=== PATIENT | male | born 1980 | race Two or more races ===

== ENCOUNTER 2020-05-27 10:02 | Outpatient (REF) | payer OTHER, SELFPAY ==
[2020-05-27 14:42] LABS: Alanine Aminotransferase 54 U/L (0-40); Albumin Level 4.4 g/dL (3.5-5.0); Alkaline Phosphatase 137 U/L (39-117); Anion Gap 12 (12-20); Aspartate Amino Transferase 36 U/L (5-37); Bilirubin Total 0.5 mg/dL (0.0-1.0); Blood Urea Nitrogen 17 mg/dL (9-16); Carbon Dioxide 28 mmol/L (22-29); Chloride 102 mmol/L (96-108); Cholesterol 168 mg/dL; Estimated Glomerular Filt Rate > 60; Glucose Fasting 78 mg/dL (60-99); HDL Cholesterol 54 mg/dL; LDL Cholesterol Calculated 92 mg/dl; Potassium 4.1 mmol/l (3.3-5.1); Sodium 138 mmol/L (135-145); Total Protein 7.5 g/dL (6.5-8.0); Triglycerides 113 mg/dL
== END 2020-05-27 10:03 | disposition home or self-care (01) ==
LOC: HO.10HDL 10:02
PROVIDERS: Visit Provider Internal Medicine
DX: E78.00 Pure hypercholesterolemia, unspecified (principal); R03.0 Elevated blood-pressure reading, without diagnosis of hypertension; E66.3 Overweight
CPT/HCPCS: 36415; 80053; 80061

== ENCOUNTER 2020-11-23 10:04 | Outpatient (REF) | payer OTHER, SELFPAY ==
[2020-11-23 12:39] LABS: MANUAL DIFF FLAG NO
[2020-11-23 12:44] LABS: Basophils Absolute Auto 0.1 X10*3/uL (0.0-0.2); Basophils Percent Auto 0.7 % (0-2); Eosinophils Absolute Auto 0.2 X10*3/uL (0.0-0.4); Eosinophils Percent Auto 2.8 % (0-4); Hematocrit 46.2 % (42-52); Hemoglobin 15.7 g/dl (14.0-18.0); Imm Gran Abs Auto 0.01 X10*3/uL (0.00-0.03); Imm Gran Pct Auto 0.1 % (0.0-0.4); Lymphocytes Absolute Auto 2.2 X10*3/uL (1.2-4.9); Lymphocytes Percent Auto 26.4 % (20-40); Mean Corpuscular Hemoglobin 31.1 pg (27.0-33.0); Mean Corpuscular Volume 91.5 fL (80-98); Mean Platelet Volume 9.7 fL (9.4-12.4); Monocytes Absolute Auto 0.7 X10*3/uL (0.1-1.2); Monocytes Percent Auto 7.7 % (2-11); Neutrophils Absolute Auto 5.3 X10*3/uL (2.0-8.3); Neutrophils Percent Auto 62.3 % (45-73); Platelet Count 243 X10*3/uL (160-400); Red Blood Count 5.05 X10*6/uL (4.60-5.80); Red Cell Distribution Width 12.2 % (11.0-16.0); White Blood Count 8.5 X10*3/uL (4.8-10.8)
[2020-11-23 12:56] LABS: Alanine Aminotransferase 56 U/L (0-40); Albumin Level 4.4 g/dL (3.5-5.0); Alkaline Phosphatase 128 U/L (39-117); Anion Gap 14 (12-20); Aspartate Amino Transferase 38 U/L (5-37); Bilirubin Total 0.7 mg/dL (0.0-1.0); Blood Urea Nitrogen 17 mg/dL (9-16); Calcium 9.5 mg/dL (8.4-10.2); Carbon Dioxide 26 mmol/L (22-29); Chloride 103 mmol/L (96-108); Cholesterol 199 mg/dL; Estimated Glomerular Filt Rate > 60; Glucose Fasting 89 mg/dL (60-99); HDL Cholesterol 57 mg/dL; LDL Cholesterol Calculated 115 mg/dl; Potassium 4.5 mmol/L (3.3-5.1); Sodium 138 mmol/L (135-145); Total Protein 7.7 g/dL (6.5-8.0); Triglycerides 138 mg/dL
== END 2020-11-23 10:05 | disposition home or self-care (01) ==
LOC: HO.10HDL 10:04
PROVIDERS: Visit Provider Internal Medicine
DX: Z00.00 Encounter for general adult medical examination without abnormal findings (principal); E78.00 Pure hypercholesterolemia, unspecified; R79.89 Other specified abnormal findings of blood chemistry; E66.3 Overweight; I10 Essential (primary) hypertension
CPT/HCPCS: 36415; 80053; 80061; 85025

== ENCOUNTER 2021-05-26 09:43 | Outpatient (REF) | payer OTHER, SELFPAY ==
[2021-05-26 11:14] LABS: Alanine Aminotransferase 56 U/L (0-40); Albumin Level 4.2 g/dL (3.5-5.0); Alkaline Phosphatase 131 U/L (39-117); Anion Gap 11 (12-20); Aspartate Amino Transferase 38 U/L (5-37); Bilirubin Total 0.7 mg/dL (0.0-1.0); Blood Urea Nitrogen 18 mg/dL (9-16); Calcium 9.2 mg/dL (8.4-10.2); Carbon Dioxide 27 mmol/L (22-29); Chloride 106 mmol/L (96-108); Cholesterol 175 mg/dL; Estimated Glomerular Filt Rate > 60; Glucose Fasting 83 mg/dL (60-99); HDL Cholesterol 47 mg/dL; LDL Cholesterol Calculated 106 mg/dl; Potassium 4.3 mmol/L (3.3-5.1); Sodium 140 mmol/L (135-145); Total Protein 7.6 g/dL (6.5-8.0); Triglycerides 113 mg/dL
== END 2021-05-26 09:44 | disposition home or self-care (01) ==
LOC: HO.10HDL 09:43
PROVIDERS: Visit Provider Internal Medicine
DX: E78.00 Pure hypercholesterolemia, unspecified (principal); R79.89 Other specified abnormal findings of blood chemistry
CPT/HCPCS: 36415; 80053; 80061

== ENCOUNTER 2021-09-13 14:20 | Emergency (ER) | payer OTHER, SELFPAY ==
[2021-09-13 14:57] VITALS: BP 157/96; PULSE 90; RESP 18; TEMP 36; O2SAT 100; BMI 35.4
[2021-09-13 15:29] LABS: COVID-19 Test Negative (Negative); IDNOW Serial# 16C4AD1C
[2021-09-13 15:30] LABS: Influenza A Negative (Negative); Influenza B2 Negative (Negative)
--- NOTE | 2021-09-13 16:05 | ED.GENADULT ---
HPI - General Adult General Chief complaint: Upper Respiratory Symptoms Stated complaint: Nausea/Eye issues/Headache Time Seen by Provider: 09/13/21 16:05 Source: patient Mode of arrival: ambulatory Limitations: no limitations History of Present Illness HPI narrative: Patient is a 41 year old male presenting to the emergency department today with a month of experiencing a bad smell off and on, nausea, and tearing of his left eye. Patient states that he has also been having headaches intermittently Patient state that none of these symptoms are happening right now but because it has been happening on and off an entire month, he wanted to be evaluated. Patient denies any current dizziness, lightheadedness, abdominal pain, nausea, vomiting, fever, chills, blurry vision, double vision, loss of vision, chest pain, difficulty breathing, shortness of breath, back pain, night sweats, pain with urination, increased urinary frequency, increased urinary urgency, blood in his urine or stool, syncope or a near syncopal episode, recent trauma or falls, bowel incontinence, bladder incontinence, bowel retention, bladder retention, or any other complaints at this time. Onset (ago): month(s) (1) Associated symptoms: denies other symptoms Treatments prior to arrival: none Related Data Previous Rx's Medication Instructions Recorded ezetimibe 10 mg tablet 10 mg PO DAILY 90 Days #90 tab 11/29/20 Allergies Allergy/AdvReac Type Severity Reaction Status Date / Time statins AdvReac Unknown elevated Uncoded 06/01/21 13:40 liver enzymes Review of Systems Constitutional: Constitutional: Reports no additional constitutional complaints, Denies chills, Denies fever(s) and Denies night sweats Eyes: Eyes: Reports no additional eye complaints, Denies blurry vision, Denies change in vision, Denies diplopia, Denies eye discharge, Denies loss of vision and Denies eye pain ENT: Denies dizziness Cardiovascular: Cardiovascular: Reports no additional cardiovascular complaints, Denies chest pain, Denies lightheadedness, Denies Loss of Consciousness and Denies dyspnea Respiratory: Respiratory: Reports no additional respiratory complaints and Denies dyspnea Gastrointestinal: Gastrointestinal: Reports no additional gastrointestinal complaints, Denies abdominal pain, Denies melena, Denies hematochezia, Denies change in bowel habits and Denies change in stool character Genitourinary: Genitourinary: Reports no additional male genitourinary complaints, Denies hematuria, Denies oliguria, Denies difficulty urinating, Denies dysuria, Denies urinary frequency, Denies urinary hesitancy, Denies urinary incontinence and Denies urinary urgency Musculoskeletal: Musculoskeletal: Reports no additional musculoskeletal complaints, Denies numbness and Denies tingling Neurologic: Denies dizziness, Denies loss of vision, Denies numbness and Denies tingling Psychiatric: Psychiatric: Reports no additional psychiatric complaints Endocrine: Endocrine: Reports no additional endocrine complaints Hematologic/Lymphatic: Hematologic/Lymphatic: Reports no additional hematologic/lymphatic complaints Allergic/Immunologic: Allergic/Immunologic: Reports no additional allergic/immunologic complaints PMFSH Past Medical History Attestation statement: The following information was validated with the patient. Source: old records reviewed Medical History Elevated LFTs Obesity (BMI 30-39.9) Pure hypercholesterolemia Surgical History No pertinent past surgical history Family History Family History Father Lung cancer Mother Hypertension Hyperlipidemia Asthma Maternal Grandmother No problems noted. Maternal Grandfather CAD (coronary artery disease) Brother In good health Sister In good health Social History Social History Housing: Apartment Alcohol intake: never Patient Tobacco Use Status: Never used Tobacco Second Hand Smoke Exposure: Yes Advance Directives: No Advance Directives Information Provided: No service: No Current occupational status: disabled Physical Exam ED Vital Signs: Vital Signs - 24 hr 09/13/21 14:57 Temperature 96.8 F Pulse Rate 90 Respiratory Rate 18 Blood Pressure 157/96 H Pulse Oximetry 100 BMI result Body Mass Index 35.4 Const General: cooperative, no acute distress, alert and awake Nutritional Appearance: well nourished Orientation/consciousness: patient oriented x3 Limitations: no limitations HENMT Head: Yes normal to inspection and Yes atraumatic Ears: hearing grossly normal bilaterally and external ears normal General nose exam: Normal external nose present, no nasal discharge noted and no epistaxis Face and sinus: Yes normal facial exam, No abrasion and No laceration Mouth: Normal oral and palatal mucosa present, no drooling and no muffled voice Eyes General: appearance normal, both eyes and all related structures Periorbital: periorbital findings normal Eyelids: Yes eyelids normal Conjunctivae: conjunctivae normal Pupils: Equal, round and reactive pupils present EOM: EOMs intact bilaterally Neck Neck: Yes normal visual inspection, Yes full ROM and Yes no lymphadenopathy Chest Chest palpation & inspection: normal inspection of the chest Resp Effort & Inspection: normal respiratory effort and able to speak in complete sentences Auscultation: clear to auscultation bilaterally Cardio Rate: regular rate Rhythm: regular rhythm GI Inspection: Yes normal to inspection Neuro General: patient oriented x3 and moves all extremities Cranial nerves: Yes Equal, round and reactive pupils present Cognition (Neuro): normal cognition Motor exam (neuro): 5/5 motor strength present throughout Sensory Exam: Normal double simultaneous stimulation for sensation Coordination: [id number] test normal Extrem General: Yes normal to inspection, Yes full ROM and Yes capillary refill normal Psych Appearance: grossly normal Mental Status: mental status grossly normal Affect: normal affect Attitude: cooperative Thought process: Normal thought process present Thought content: Normal thought content present Insight: Good insight present (Psych) Medical Decision Making MDM Narrative Medical decision making narrative: Patient is a 41 year old male presenting to the emergency department today with a month of intermittent bad smells, nausea, a headache, and left eye tearing. Patient's physical exam was unremarkable including a normal neurological examination. I explained my physical exam findings to the patient. I answered all questions asked by the patient. I explained to the patient that his description of symptoms is consistent with migraines. I explained to the patient that he needs to follow up with a neurologist. Patient stated he was concerned it may be coming from the inside of his nose or mouth. I recommended the patient also follow up with an ENT and a Dentist. I stressed the importance of the patient taking his medication as prescribed. I stressed the importance of the patient following up with his primary care provider. I stressed the importance of the patient returning to the emergency department immediately if his symptoms were to worsen or if he were to develop any dizziness, shortness of breath, difficulty breathing, chest pain, blurry vision, loss of vision, nausea, vomiting, abdominal pain, fever, chills, back pain, or any other complaints. Patient verbalized agreement and understanding with this treatment plan and discharge. Differential Diagnosis Differential Diagnosis: migraine Medical Records Medical records reviewed: Yes I reviewed the patient's medical records. Lab Data Lab results reviewed: Yes I reviewed the patient's lab results. Labs: Lab Results 09/13/21 09/13/21 Range/Units 15:02 15:02 COVID-19 (JENNIFER) Negative (Negative) COVID-19 Clin Com See Note Influenza Type A (SLAVA) Negative (Negative) Influenza Type B (SLAVA) Negative (Negative) Influenza A & B Note See Note Discharge Plan Discharge Clinical Impression: Migraine Patient Disposition: Home, Self-Care Instructions: Migraine Headache (ED) Additional Instructions: Follow up with your primary care provider and a neurologist, ENT, and dentist as needed. Return to the emergency department immediately if your symptoms worsen or if you develop any dizziness, shortness of breath, difficulty breathing, chest pain, blurry vision, loss of vision, nausea, vomiting, abdominal pain, fever, chills, back pain, or any other complaints. Call or visit any of the clinics below to establish with a dentist: [facility] [address] [place] [address] [facility] [address] [facility], [address] [address] [facility] [address] [place] [id number] [facility] [address] [place] [address] [place] [address] [place] [address] Prescriptions: No Action ezetimibe 10 mg tablet 10 mg PO DAILY 90 Days Qty: 90 3RF Referrals: [facility] [place] [place] Group] Giovanni Talbert MD [Primary Care Provider] - Interventions: ED Discharge Assessment Last Done: 09/13/21 16:38 Discharge Date/Time: 09/13/21 16:39 Print Language: Turkish
== END 2021-09-13 16:39 | disposition home or self-care (01) ==
PROVIDERS: Emergency Provider Emergency Medicine; PCP Internal Medicine
DX: G43.909 Migraine, unspecified, not intractable, without status migrainosus (principal); Z20.822 Contact with and (suspected) exposure to COVID-19; Z79.899 Other long term (current) drug therapy
CPT/HCPCS: 87502; 87635; 99283

== ENCOUNTER 2021-09-15 22:58 | Emergency (ER) | payer OTHER, SELFPAY ==
[2021-09-15 23:26] VITALS: BP 153/94; PULSE 106; RESP 16; TEMP 36.8; O2SAT 98; BMI 29.5
[2021-09-16] VITALS: BP 144/97; PULSE 91; RESP 16; TEMP 36.8; O2SAT 99
--- NOTE | 2021-09-16 01:17 | ED.GENADULT ---
HPI - General Adult General Chief complaint: General Medical Stated complaint: fever, headache congested Time Seen by Provider: 09/16/21 01:06 Source: patient Mode of arrival: ambulatory Limitations: no limitations History of Present Illness HPI narrative: Patient comes emergency room complaining of viral symptoms such as fever, headache, congestion. Patient denies sinus pain. At this time, patient states that he does not have a headache, he does not feel congested. Patient states his symptoms have been intermittent for about 3 weeks. Prior to arrival, patient took a home COVID test, it was partially positive. Patient denies nausea vomiting or diarrhea. Denies sore throat Related Data Previous Rx's Medication Instructions Recorded ezetimibe 10 mg tablet 10 mg PO DAILY 90 Days #90 tab 11/29/20 acetaminophen 500 mg tablet 500 mg PO Q6H PRN #14 tab 09/16/21 ibuprofen 600 mg tablet 600 mg PO TID PRN #14 tab 09/16/21 Allergies Allergy/AdvReac Type Severity Reaction Status Date / Time statins AdvReac Unknown elevated Uncoded 06/01/21 13:40 liver enzymes Review of Systems Review of Systems: Constitutional : No Weight loss, complaining of subjectiveFever, No Chills, No Night Sweats, complaining of fatigue, body aches, decreased appetite ENT/Mouth : No Hearing loss, No Ear Pain, complaining of intermittent nasal congestion, No Sinus Pain, No Hoarseness, No sore throat, No Rhinorrhea, No Swallowing Difficulty states he feels a constant sensation that he is smelling ammonia Eyes: No Eye Pain, No Swelling, No Redness, No Foreign Body, No Discharge, No Vision Changes Cardiovascular : No Chest Pain, No SOB, No Dyspnea on Exertion, No Orthopnea, No Edema, No Palpitations Respiratory : No Cough, No Sputum, No Wheezing, No Smoke Exposure, No Dyspnea Gastrointestinal : No Nausea, No Vomiting, No Diarrhea, No Constipation, No abdominal Pain, No Hematochezia, No Melena Genitourinary : no irregular bleeding, No Dysuria, No Urinary Frequency, No Hematuria, No Urinary Incontinence, No Urgency, No Flank Pain, No Urinary Flow Changes, No Hesitancy Musculoskeletal : No joint pain, No Myalgias, No Joint Swelling Skin : No Skin Lesions, No rash Neuro : No Weakness, No Numbness, No Paresthesias, No Loss of Consciousness, No Dizziness, No Headache Psych : No Anxiety/Panic, No Depression, No SI/HI/AH/VH, No Social Issues, Heme/Lymph: No Bruising, No Bleeding,No Lymphadenopathy Endocrine : No Polyuria, No Polydipsia, No Temperature Intolerance [facility] Past Medical History Medical History Elevated LFTs Obesity (BMI 30-39.9) Pure hypercholesterolemia Surgical History No pertinent past surgical history Family History Family History Father Lung cancer Mother Hypertension Hyperlipidemia Asthma Maternal Grandmother No problems noted. Maternal Grandfather CAD (coronary artery disease) Brother In good health Sister In good health Social History Social History Housing: Apartment Alcohol intake: never Patient Tobacco Use Status: Never used Tobacco Second Hand Smoke Exposure: Yes Advance Directives: No service: No Current occupational status: disabled Physical Exam ED Vital Signs: Vital Signs - 24 hr 09/15/21 23:26 09/16/21 00:00 Temperature 98.3 F 98.2 F Pulse Rate 106 H 91 Respiratory Rate 16 16 Blood Pressure 153/94 H 144/97 H Pulse Oximetry 98 99 BMI result Body Mass Index 29.5 Const Other: Appearance: Alert. Oriented X3. No acute distress. Eyes: Pupils equal, round and reactive to light. ENT: Pharynx normal. No pharyngeal exudates, no oral mucosa vesicles, no abscesses, no gum infection facial pain to palpation in all sinuses Neck: Normal inspection. Neck supple. No lymph nodes noted. No crepitus CVS: Normal heart rate and rhythm. Pulses normal. Normal S1 and S2 Respiratory: No respiratory distress. Breath sounds normal. No Wheezing. No rales Abdomen: Soft and nontender. No rigidity. No distention. Skin: Skin warm and dry. Normal skin color. Normal skin turgor. Extremities: No lower extremity edema. No Lacerations. No Rash Neuro: Oriented X 3. No motor deficit. No sensory deficit. Moving all extremities. No slurred speech. CN 2 through 12 grossly intact Psych: calm, cooperative, normal affect Course Course Course Narrative: Patient's physical exam is normal. We will go ahead and test the patient for COVID and influenza. Patient's COVID test is positive. Patient is immunized with a bolster. Oxygen saturation 99% on room air even when walk around his room. Patient has been symptomatic for approximately 2 weeks. His outside of the window of treatment for antivirals or monoclonal antibodies. Medical Decision Making Lab Data Labs: Lab Results 09/16/21 09/16/21 Range/Units 01:36 01:36 COVID-19 (JENNIFER) Positive A (Negative) COVID-19 Clin Com See Note Influenza Type A (SLAVA) Negative (Negative) Influenza Type B (SLAVA) Negative (Negative) Influenza A & B Note See Note Discharge Plan Discharge Clinical Impression: COVID-19 Patient Disposition: Home, Self-Care Instructions: COVID-19 (Coronavirus Disease 2019) (ED) Additional Instructions: You need to quarantine for 5 days. Please follow-up with your primary care physician tomorrow. If you have any worsening or new symptoms, please return to the emergency room or call 911 Prescriptions: New ibuprofen 600 mg tablet 600 mg PO TID PRN (Reason: fever or pain) Qty: 14 0RF acetaminophen 500 mg tablet 500 mg PO Q6H PRN (Reason: fever or pain) Qty: 14 0RF No Action ezetimibe 10 mg tablet 10 mg PO DAILY 90 Days Qty: 90 3RF
[2021-09-16 01:56] LABS: IDNOW Serial# 16C4AD1C; Influenza A Negative (Negative); Influenza B2 Negative (Negative)
[2021-09-16 01:57] LABS: COVID-19 Test Positive (Negative)
== END 2021-09-16 02:21 | disposition home or self-care (01) ==
PROVIDERS: Emergency Provider Emergency Medicine; PCP Internal Medicine
DX: U07.1 COVID-19 (principal)
CPT/HCPCS: 87502; 87635; 99283

== ENCOUNTER 2022-01-17 15:17 | Outpatient (REF) | payer OTHER, SELFPAY ==
[2022-01-17 15:42] LABS: Binax Internal Control QC Valid; Binax Now Covid-19 Ag Negative (Negative)
== END 2022-01-17 15:18 | disposition home or self-care (01) ==
LOC: HO.HMGCLDS 15:17
PROVIDERS: Visit Provider Internal Medicine
DX: Z20.822 Contact with and (suspected) exposure to COVID-19 (principal); J06.9 Acute upper respiratory infection, unspecified
CPT/HCPCS: 87811; C9803

== ENCOUNTER 2022-02-08 09:23 | Outpatient (REF) | payer OTHER, SELFPAY ==
[2022-02-08 10:27] LABS: MANUAL DIFF FLAG NO
[2022-02-08 10:29] LABS: Appearance Urine Clear; Color Urine Yellow; Glucose Urine UA Negative (Negative); Leukocyte Esterase Urine Negative (Negative); Nitrite Urine Negative (Negative); PH 6.5 (5.0-9.0); Urine Blood Negative (Negative); Urine Ketones Negative (Negative); Urine Protein Negative (Neg-Trace)
[2022-02-08 10:30] LABS: Basophils Absolute Auto 0.1 X10*3/uL (0.0-0.2); Basophils Percent Auto 0.8 % (0-2); Eosinophils Absolute Auto 0.2 X10*3/uL (0.0-0.4); Eosinophils Percent Auto 2.1 % (0-4); Hematocrit 47.3 % (42.0-52.0); Hemoglobin 16.6 g/dl (14.0-18.0); Imm Gran Abs Auto 0.02 X10*3/uL (0.00-0.03); Imm Gran Pct Auto 0.2 % (0.0-0.4); Lymphocytes Percent Auto 21.7 % (20-40); Mean Corpuscular HGB Conc 35.1 g/dl (31.0-36.0); Mean Corpuscular Hemoglobin 31.5 pg (27.0-33.0); Mean Corpuscular Volume 89.8 fL (80.0-98.0); Monocytes Absolute Auto 0.6 X10*3/uL (0.1-1.2); Monocytes Percent Auto 6.7 % (2-11); Neutrophils Absolute Auto 6.1 x10*3/uL (2.0-8.3); Neutrophils Percent Auto 68.5 % (45-73); Platelet Count 235 X10*3/uL (160-400); Red Blood Count 5.27 X10*6/uL (4.60-5.80); Red Cell Distribution Width 12.1 % (11.0-16.0)
[2022-02-08 10:58] LABS: Alanine Aminotransferase 54 U/L (0-40); Albumin Level 4.4 g/dL (3.5-5.0); Alkaline Phosphatase 128 U/L (39-117); Anion Gap 15 (12-20); Aspartate Amino Transferase 34 U/L (5-37); Bilirubin Total 0.7 mg/dL (0.0-1.0); Blood Urea Nitrogen 15 mg/dL (9-16); Calcium 9.2 mg/dL (8.4-10.2); Carbon Dioxide 25 mmol/L (22-29); Chloride 103 mmol/L (96-108); Cholesterol 184 mg/dL; Estimated Glomerular Filt Rate > 60; Glucose Fasting 86 mg/dL (60-99); HDL Cholesterol 46 mg/dL; LDL Cholesterol Calculated 113 mg/dl; Potassium 4.1 mmol/L (3.3-5.1); Sodium 139 mmol/L (135-145); Total Protein 7.7 g/dL (6.5-8.0); Triglycerides 125 mg/dL
[2022-02-08 11:10] LABS: TSH reflex Free T4 0.77 uIU/mL (0.32-4.0); Vitamin D 25-OH Total 17.3 ng/mL (>30)
== END 2022-02-08 09:24 | disposition home or self-care (01) ==
LOC: HO.10HDL 09:23
PROVIDERS: Visit Provider Internal Medicine
DX: Z00.00 Encounter for general adult medical examination without abnormal findings (principal); I10 Essential (primary) hypertension; E78.00 Pure hypercholesterolemia, unspecified; E55.9 Vitamin D deficiency, unspecified
CPT/HCPCS: 36415; 80053; 80061; 81003; 82306; 84443; 85025

== ENCOUNTER 2022-04-27 13:06 | Emergency (ER) | payer OTHER, SELFPAY ==
[2022-04-27 13:11] VITALS: BP 170/103; PULSE 92; RESP 20; TEMP 36.8; O2SAT 99; BMI 30.1
--- NOTE | 2022-04-27 13:24 | ED_ITS ---
HPI - General Adult General Chief complaint: Ear Problems <SENA Turner - Last Filed: 05/01/22 12:31> Stated complaint: Something stuck in R ear <SENA Turner - Last Filed: 05/01/22 12:31> Time Seen by Provider: 04/27/22 14:21 <SENA Turner - Last Filed: 05/01/22 12:31> Source: patient and family <SENA Rod Last Filed: 04/27/22 15:46> Mode of arrival: ambulatory <SENA Rod Last Filed: 04/27/22 15:46> Limitations: no limitations <SENA Rod Last Filed: 04/27/22 15:46> History of Present Illness HPI narrative: 41-year-old male presenting to the ER after he was seen by ENT approximately 1 month ago on 03/15/2022 for his sinuses and at that time they also look that his ears and noted that he has some cerumen and he told them that he was having some tinnitus he is presenting today after he had ear cleaning on Sunday with [employer] and then Sunday woke up with decreased hearing to the right ear. He reports that he did not have this decreased hearing before his ear nose and throat ear cleaning. He denies any fevers, headaches, neck pain /stiffness, trouble swallowing or breathing or any other symptoms Medication Instructions Recorded Confirmed 5:46> MD complaint: 15:46> Onset (ago): day(s) (2-3 days ) <SENA Rod - Last Filed: 04/27/22 15:46> Related Data Home medications: Medication Instructions Recorded Confirmed #14 tabs topiramate 25 mg tablet 25 mg PO BEDTIME 02/13/22 02/13/22 Previous Rx's Medication Instructions Recorded acetaminophen 500 mg tablet 500 mg PO Q6H PRN fever or pain 09/16/21 #14 tabs ibuprofen 600 mg tablet 600 mg PO TID PRN fever or pain 09/16/21 #14 tabs fluticasone propionate 50 1 spray intranasal DAILY #9.9 mL 01/18/22 mcg/actuation nasal spray,suspension (Flonase Allergy Relief) cholecalciferol (vitamin D3) 50 50 mcg PO DAILY 90 days #90 caps 02/13/22 mcg (2,000 unit) capsule ezetimibe 10 mg tablet 10 mg PO DAILY 90 days #90 tabs 02/13/22 amoxicillin 875 mg-potassium 1 tab PO BID 10 days #20 tabs 04/27/22 <SENA Turner - Last Filed: 05/01/22 12:31> Allergies/adverse reactions: Medical History: Allergy/AdvReac Type Severity Reaction Status Date / Time statins AdvReac Unknown elevated Uncoded 02/13/22 15:54 liver enzymes <SENA Turner Last Filed: 05/01/22 12:31> Review of Systems Review of Systems: Constitutional : No Weight loss, No Fever, No Chills, No ENT/Mouth : + Ear Pain/decreased hearing, No Nasal Congestion, No Sinus Pain, No Hoarseness, No sore throat, No Rhinorrhea, No Swallowing Difficulty Eyes: No Eye Pain, No Swelling, No Redness, No Foreign Body, No Discharge, No Vision Changes Cardiovascular : No Chest Pain, No SOB, No Dyspnea on Exertion, No Orthopnea, No Edema, No Palpitations Respiratory : No Cough, No Sputum, No Wheezing, No Smoke Exposure, No Dyspnea Gastrointestinal : No Nausea, No Vomiting, No Diarrhea, No Constipation, No abdominal Pain, No Hematochezia, No Melena Genitourinary : no irregular bleeding, No Dysuria, No Urinary Frequency, No Hematuria, No Urinary Incontinence, No Urgency, No Flank Pain, No Urinary Flow Changes, No Hesitancy Musculoskeletal : No joint pain, No Myalgias, No Joint Swelling Skin : No Skin Lesions, No rash Neuro : No Weakness, No Numbness, No Paresthesias, No Loss of Consciousness, No Dizziness, No Headache Psych : No Anxiety/Panic, No Depression, No SI/HI/AH/VH, No Social Issues, Heme/Lymph: No Bruising, No Bleeding,No Lymphadenopathy Endocrine : No Polyuria, No Polydipsia, No Temperature Intolerance <SENA Rod Last Filed: 04/27/22 15:46> Yes all other systems are reviewed and are negative <SENA Rod Last Filed: 04/27/22 15:46> [facility] Past Medical History Attestation statement: The following information was validated with the patient. <SENA Rod Last Filed: 04/27/22 15:46> Source: old records reviewed, obtained from family and nursing notes reviewed <SENA Rod - Last Filed: 04/27/22 15:46> Medical History: Medical History Allergic rhinitis Blurring of visual image of both eyes Elevated LFTs Migraine Obesity (BMI 30-39.9) Pure hypercholesterolemia Vitamin D deficiency <SENA Turner - Last Filed: 05/01/22 12:31> Surgical History: Surgical History No pertinent past surgical history Family History Family History: Father Lung cancer Mother Hypertension Hyperlipidemia Asthma Brother In good health Sister In good health <SENA Turner - Last Filed: 05/01/22 12:31> Social History Social History: Social History Alcohol intake: never Pulse Rate 92 service: No Cognitive needs: No Vision needs: No Oxygen Delivery Method Room Air Vital Signs: 04/27/22 13:11 Temperature 98.3 F Pulse Rate 92 Respiratory Rate 20 Blood Pressure 170/103 H Pulse Oximetry 99 Oxygen Delivery Method Room Air BMI result Body Mass Index 30.1 <SENA Turner - Last Filed: 05/01/22 12:31> Vital Signs - 24 hr 04/27/22 13:11 Temperature 98.3 F Pulse Rate 92 Respiratory Rate 20 Blood Pressure 170/103 H Pulse Oximetry 99 Oxygen Delivery Method Room Air BMI result Referrals:
--- NOTE | 2022-04-27 13:24 | ED.GENADULT ---
HPI - General Adult General Chief complaint: Ear Problems <SENA Turner - Last Filed: 05/01/22 12:31> Stated complaint: Something stuck in R ear <SENA Turner Last Filed: 05/01/22 12:31> Time Seen by Provider: 04/27/22 14:21 <SENA Turner - Last Filed: 05/01/22 12:31> Source: patient and family <SENA Rod Last Filed: 04/27/22 15:46> Mode of arrival: ambulatory <SENA Rod Last Filed: 04/27/22 15:46> Limitations: no limitations <SENA Rod Last Filed: 04/27/22 15:46> History of Present Illness HPI narrative: 41-year-old male presenting to the ER after he was seen by ENT approximately 1 month ago on 03/15/2022 for his sinuses and at that time they also look that his ears and noted that he has some cerumen and he told them that he was having some tinnitus he is presenting today after he had ear cleaning on Sunday with [employer] and then Sunday woke up with decreased hearing to the right ear. He reports that he did not have this decreased hearing before his ear nose and throat ear cleaning. He denies any fevers, headaches, neck pain /stiffness, trouble swallowing or breathing or any other symptoms complaints or concerns at this time. <SENA Rod - Last Filed: 04/27/22 15:46> MD complaint: decreased hearing to the right ear <SENA Rod Last Filed: 04/27/22 15:46> Onset (ago): day(s) (2-3 days ) <SENA oRd Last Filed: 04/27/22 15:46> Related Data Home medications: Home Medications Medication Instructions Recorded Confirmed sumatriptan succinate 50 mg tablet 50 mg PO Q2-4H PRN 01/17/22 02/13/22 topiramate 25 mg tablet 25 mg PO BEDTIME 02/13/22 02/13/22 Previous Rx's Medication Instructions Recorded acetaminophen 500 mg tablet 500 mg PO Q6H PRN fever or pain 09/16/21 #14 tabs ibuprofen 600 mg tablet 600 mg PO TID PRN fever or pain 09/16/21 #14 tabs fluticasone propionate 50 1 spray intranasal DAILY #9.9 mL 01/18/22 mcg/actuation nasal spray,suspension (Flonase Allergy Relief) cholecalciferol (vitamin D3) 50 50 mcg PO DAILY 90 days #90 caps 02/13/22 mcg (2,000 unit) capsule ezetimibe 10 mg tablet 10 mg PO DAILY 90 days #90 tabs 02/13/22 amoxicillin 875 mg-potassium 1 tab PO BID 10 days #20 tabs 04/27/22 clavulanate 125 mg tablet <SENA Turner - Last Filed: 05/01/22 12:31> Allergies/adverse reactions: Allergies Allergy/AdvReac Type Severity Reaction Status Date / Time statins AdvReac Unknown elevated Uncoded 02/13/22 15:54 liver enzymes <SENA Turner - Last Filed: 05/01/22 12:31> Review of Systems Review of Systems: Constitutional : No Weight loss, No Fever, No Chills, No Night Sweats, No Fatigue, No Malaise ENT/Mouth : + Ear Pain/decreased hearing, No Nasal Congestion, No Sinus Pain, No Hoarseness, No sore throat, No Rhinorrhea, No Swallowing Difficulty Eyes: No Eye Pain, No Swelling, No Redness, No Foreign Body, No Discharge, No Vision Changes Cardiovascular : No Chest Pain, No SOB, No Dyspnea on Exertion, No Orthopnea, No Edema, No Palpitations Respiratory : No Cough, No Sputum, No Wheezing, No Smoke Exposure, No Dyspnea Gastrointestinal : No Nausea, No Vomiting, No Diarrhea, No Constipation, No abdominal Pain, No Hematochezia, No Melena Genitourinary : no irregular bleeding, No Dysuria, No Urinary Frequency, No Hematuria, No Urinary Incontinence, No Urgency, No Flank Pain, No Urinary Flow Changes, No Hesitancy Musculoskeletal : No joint pain, No Myalgias, No Joint Swelling Skin : No Skin Lesions, No rash Neuro : No Weakness, No Numbness, No Paresthesias, No Loss of Consciousness, No Dizziness, No Headache Psych : No Anxiety/Panic, No Depression, No SI/HI/AH/VH, No Social Issues, Heme/Lymph: No Bruising, No Bleeding,No Lymphadenopathy Endocrine : No Polyuria, No Polydipsia, No Temperature Intolerance <Zoraida Traore, PA - Last Filed: 04/27/22 15:46> Yes all other systems are reviewed and are negative <SENA Rod - Last Filed: 04/27/22 15:46> [facility] Past Medical History Attestation statement: The following information was validated with the patient. <SENA Rod - Last Filed: 04/27/22 15:46> Source: old records reviewed, obtained from family and nursing notes reviewed <SENA oRd - Last Filed: 04/27/22 15:46> Medical History: Medical History Allergic rhinitis Blurring of visual image of both eyes Elevated LFTs Migraine Obesity (BMI 30-39.9) Pure hypercholesterolemia Vitamin D deficiency <SENA Turner - Last Filed: 05/01/22 12:31> Surgical History: Surgical History No pertinent past surgical history <SENA Turner - Last Filed: 05/01/22 12:31> Family History Family History: Family History Father Lung cancer Mother Hypertension Hyperlipidemia Asthma Maternal Grandmother No problems noted. Maternal Grandfather CAD (coronary artery disease) Brother In good health Sister In good health <SENA Turner - Last Filed: 05/01/22 12:31> Social History Social History: Social History Housing: Apartment Alcohol intake: never Patient Tobacco Use Status: Never used Tobacco Second Hand Smoke Exposure: Yes Advance Directives: No service: No Current occupational status: disabled Cognitive needs: No Hearing needs: No Vision needs: No <SENA Turner Last Filed: 05/01/22 12:31> Physical Exam ED Vital Signs: Vital Signs - 24 hr 04/27/22 13:11 Temperature 98.3 F Pulse Rate 92 Respiratory Rate 20 Blood Pressure 170/103 H Pulse Oximetry 99 Oxygen Delivery Method Room Air BMI result Body Mass Index 30.1 <SENA Turner Last Filed: 05/01/22 12:31> Vital Signs - 24 hr 04/27/22 13:11 Temperature 98.3 F Pulse Rate 92 Respiratory Rate 20 Blood Pressure 170/103 H Pulse Oximetry 99 Oxygen Delivery Method Room Air BMI result Body Mass Index 30.1 vital signs have been reviewed as normal and appeared to be correct. Blood pressure 170/103. Heart rate normal. Respiration rate normal. Temperature normal. Oxygen saturation normal. <SENA Rod - Last Filed: 04/27/22 15:46> Appearance: Alert. Oriented X3. No acute distress. Head: Normal external exam. Normocephalic. Atraumatic. Eyes: PERRLA. EOMI. Conjunctiva and sclera normal. Eyelids normal. ENT: EAC normal. TM left WNL. right tympanic membrane obscured by cerumen and patient with decreased hearing. No tenderness over the mastoid. Not consistent with mastoiditis. Pharynx normal. Uvula midline. Moist mucous membranes. No lesions/ulcerations or masses noted on the tongue. Normal voice. No trismus noted. No drooling noted. No muffled voice noted. Neck: Normal inspection. Neck supple. FROM. No adenopathy. Thyroid Normal. No tracheal deviation noted. No crepitus is noted. No meningeal signs. No neck mass noted. CVS: Normal heart rate and rhythm. Heart sound normal. Pulses normal throughout. No murmurs/rales/gallops. Respiratory: No respiratory distress. Painless inspiration. Breath sounds normal. No wheezes/rales/rhonchi noted. Chest nontender. No accessory muscle usage noted or decreased air movement noted. Back: Full range of motion noted. Nontender. Skin: Skin warm and dry. Normal skin color. Normal skin turgor. No rashes/lesions/lacerations noted. Extremities: Extremities exhibit normal range of motion and nontender. Neuro: Oriented X 3. No motor deficit. No sensory deficit. Reflexes normal. Normal steady gait. No focal neuro deficits noted. CN's II-XII intact bilaterally? Vascular: + radial pulses Normal cap refill. No cyanosis noted to upper extremity nails <SENA Rod - Last Filed: 04/27/22 15:46> Course Course Course Narrative: 41 yold male with foreign body in ear and ear pain after instrumentation procedure in right ear after proceudure at the office. Ear exam ear canal redness, but I see white object in ear. can be extracted in [facility] [place]. <SENA Turner - Last Filed: 05/01/22 12:31> Reevaluation(s) Reevaluation #1: 41-year-old male presenting to the ER after he was seen by ENT approximately 1 month ago on 03/15/2022 for his sinuses and at that time they also look that his ears and noted that he has some cerumen and he told them that he was having some tinnitus he is presenting today after he had ear cleaning on Sunday with [employer] and then Sunday woke up with decreased hearing to the right ear. He reports that he did not have this decreased hearing before his ear nose and throat ear cleaning. He denies any fevers, headaches, neck pain /stiffness, trouble swallowing or breathing or any other symptoms complaints or concerns at this time. I reviewed the patient's ENT notes by Dr. Olivia Benjamin MD from 03/15/2022 and it states that the patient had nasal polyps and that he believes it might be related to his migraines. He did recommend imaging of the skull. He reported we will defer ordering the MRI until follow-up visit for ear cleaning and audiogram. I asked him to use some mineral oil to soften the cerumen. He is having some right-sided tinnitus. The tinnitus clears with cerumen and hearing is symmetric, MRI will only need to be of the brain. If there is any asymmetrical remaining in the tinnitus or his audiogram he will also need and IAC protocol. On my exam it appears that the patient still has moderate cerumen impaction unable to visualize the tympanic membrane therefore on sure if it is ruptured therefore will not irrigate the ear due to possible tympanic membrane rupture after his cerumen impaction removal on Sunday. Therefore at this time will order a CT scan of mastoids to evaluate for possible mastoiditis. If negative patient will be started on antibiotics and sent back to ear nose and throat. Patient with at bedside understand agree this plan. <SENA Rod - Last Filed: 04/27/22 15:46> Time: 14:37 <SENA Rod - Last Filed: 04/27/22 15:46> Reevaluation #2: CT scan of mastoids revealed FINDINGS: Right: There is cerumen in the external auditory canal. There is no abnormal thickening of the tympanic membrane. The middle ear cavity is well-aerated. The ossicular chain is intact. The mastoid air cells are well aerated. The labyrinthine structures are normal. Mineralization within the otic capsule is preserved. The internal auditory canal is unremarkable. The temporomandibular joint is intact.? Left: The external auditory canal is normal and there is no abnormal thickening of the tympanic membrane. The middle ear cavity is well-aerated. The ossicular chain is intact. The mastoid air cells are well aerated. The labyrinthine structures are normal. Mineralization within the otic capsule is preserved. The internal auditory canal is unremarkable. The temporomandibular joint is intact.? Other: There are retention cysts in the bilateral maxillary sinuses. There is mucoperiosteal thickening in the posterior ethmoid sinuses bilaterally and in the right sphenoid sinus. The visualized intracranial structures are unremarkable. CT/CT mastoid IMPRESSION: 1. There is no evidence of bilateral mastoiditis or otitis media. ? 2. There is cerumen in the external auditory canal on the right. ? 3. There is moderate mucoperiosteal thickening in the paranasal sinuses. therefore at this time will DC home with antibiotics and instructions to follow-up with ear nose and throat. Will not irrigate the ear for cerumen impaction due to possible tympanic membrane rupture unable to rule that out. Patient understands agrees with this plan. <SENA Rod - Last Filed: 04/27/22 15:46> Time: 15:37 <SENA Rod - Last Filed: 04/27/22 15:46> Discharge Plan Discharge Clinical Impression: Acute right otitis media, Cerumen impaction <SENA Turner Last Filed: 05/01/22 12:31> Patient Disposition: Home, Self-Care <SENA Turner Last Filed: 05/01/22 12:31> Instructions: Ear Infection (ED) <SENA Turner Last Filed: 05/01/22 12:31> Prescriptions: New amoxicillin-pot clavulanate 875-125 mg tablet 1 tab PO BID 10 Days Qty: 20 0RF No Action fluticasone propionate [Flonase Allergy Relief] 50 mcg/actuation spray,suspension 1 spray intranasal DAILY Qty: 9.9 1RF Rx Instructions: administer into each nostril ibuprofen 600 mg tablet 600 mg PO TID PRN (Reason: fever or pain) Qty: 14 0RF acetaminophen 500 mg tablet 500 mg PO Q6H PRN (Reason: fever or pain) Qty: 14 0RF cholecalciferol (vitamin D3) 50 mcg (2,000 unit) capsule 50 mcg PO DAILY 90 Days Qty: 90 3RF ezetimibe 10 mg tablet 10 mg PO DAILY 90 Days Qty: 90 3RF topiramate 25 mg tablet 25 mg PO BEDTIME sumatriptan succinate 50 mg tablet 50 mg PO Q2-4H PRN Rx Instructions: do not exceed 4 doses per 24 hrs <SENA Turner - Last Filed: 05/01/22 12:31> Referrals: Giovanni Talbert MD [Primary Care Provider] - 1 day Olivia Benjamin MD [Physician] - ( call today to make a follow-up appointment) <SENA Turner - Last Filed: 05/01/22 12:31> Interventions: ED Discharge Assessment Last Done: 04/27/22 16:25 <SENA Turner - Last Filed: 05/01/22 12:31> Discharge Date/Time: 04/27/22 16:26 <SENA Turner - Last Filed: 05/01/22 12:31>
== END 2022-04-27 16:26 | disposition home or self-care (01) ==
PROVIDERS: Emergency Provider Emergency Medicine Emergency Medical Services; PCP Internal Medicine
DX: H66.91 Otitis media, unspecified, right ear (principal); H61.21 Impacted cerumen, right ear
CPT/HCPCS: 70481; 99282; 99284

== ENCOUNTER 2022-06-02 10:16 | Outpatient (REF) | payer OTHER, SELFPAY ==
[2022-06-02 10:54] LABS: MANUAL DIFF FLAG NO
[2022-06-02 11:03] LABS: Basophils Absolute Auto 0.1 X10*3/uL (0.0-0.2); Basophils Percent Auto 0.7 % (0-2); Eosinophils Absolute Auto 0.3 X10*3/uL (0.0-0.4); Hematocrit 49.7 % (42.0-52.0); Hemoglobin 17.5 g/dl (14.0-18.0); Imm Gran Abs Auto 0.01 X10*3/uL (0.00-0.03); Imm Gran Pct Auto 0.1 % (0.0-0.4); Lymphocytes Absolute Auto 2.3 X10*3/uL (1.2-4.9); Lymphocytes Percent Auto 27.9 % (20-40); Mean Corpuscular HGB Conc 35.2 g/dl (31.0-36.0); Mean Corpuscular Hemoglobin 31.3 pg (27.0-33.0); Mean Corpuscular Volume 88.8 fL (80.0-98.0); Mean Platelet Volume 9.2 fL (9.4-12.4); Monocytes Absolute Auto 0.6 X10*3/uL (0.1-1.2); Monocytes Percent Auto 7.7 % (2-11); Neutrophils Percent Auto 59.6 % (45-73); Platelet Count 237 X10*3/uL (160-400); Red Cell Distribution Width 11.9 % (11.0-16.0); White Blood Count 8.3 X10*3/uL (4.8-10.8)
[2022-06-02 11:12] LABS: Appearance Urine Clear; Color Urine Yellow; Glucose Urine UA Negative (Negative); Leukocyte Esterase Urine Negative (Negative); Nitrite Urine Negative (Negative); PH 6.5 (5.0-9.0); Specific Gravity - Urine 1.015 (1.005-1.025); Urine Blood Negative (Negative); Urine Ketones Negative (Negative); Urine Protein Negative (Neg-Trace)
[2022-06-02 12:03] LABS: Alanine Aminotransferase 68 U/L (0-40); Albumin Level 4.4 g/dL (3.5-5.0); Alkaline Phosphatase 137 U/L (39-117); Anion Gap 13 (12-20); Aspartate Amino Transferase 44 U/L (5-37); Bilirubin Total 0.8 mg/dL (0.0-1.0); Blood Urea Nitrogen 16 mg/dL (9-16); Calcium 9.5 mg/dL (8.4-10.2); Carbon Dioxide 27 mmol/L (22-29); Chloride 103 mmol/L (96-108); Cholesterol 218 mg/dL; Estimated Glomerular Filt Rate > 60; Glucose Fasting 80 mg/dL (60-99); HDL Cholesterol 46 mg/dL; LDL Cholesterol Calculated 147 mg/dl; Potassium 4.5 mmol/L (3.3-5.1); Sodium 138 mmol/L (135-145); TSH reflex Free T4 0.69 uIU/mL (0.32-4.0); Total Protein 7.8 g/dL (6.5-8.0); Triglycerides 127 mg/dL; Vitamin D 25-OH Total 16.8 ng/mL (>30)
== END 2022-06-02 10:17 | disposition home or self-care (01) ==
LOC: HO.10HDL 10:16
PROVIDERS: Visit Provider Internal Medicine
DX: Z00.00 Encounter for general adult medical examination without abnormal findings (principal); R30.0 Dysuria; E78.00 Pure hypercholesterolemia, unspecified; E55.9 Vitamin D deficiency, unspecified
CPT/HCPCS: 36415; 80053; 80061; 81003; 82306; 84443; 85025

== ENCOUNTER 2022-07-13 10:20 | Outpatient (REF) | payer OTHER, SELFPAY ==
--- NOTE | ~2022-07-13 | US_ITS ---
EXAMINATION: US ABDOMEN COMPLETE CLINICAL INFORMATION: Other specified abnormal findings of blood chemistry. COMPARISON: CT abdomen and pelvis with contrast 06/19/2013. TECHNIQUE: Real-time imaging of the abdominal viscera. Today's examination is limited secondary to overlying bowel gas. FINDINGS: PANCREAS: Limited visualization of the pancreas is grossly unremarkable. ABDOMINAL AORTA: Visualized portions of the proximal, mid and distal abdominal aorta are normal in caliber. INFERIOR VENA CAVA: Visualized portions are normal. LIVER: The liver is normal in size. The liver contour is normal. Echogenicity of the liver is mildly increased diffusely. No focal hepatic lesion. There is no intrahepatic biliary duct dilatation seen. GALLBLADDER: Normal. The gallbladder is physiologically distended without evidence of stones, sludge, polyps, wall thickening or pericholecystic fluid. COMMON BILE DUCT: Normal in caliber measuring 0.5 cm in diameter. RIGHT KIDNEY: Simple appearing 3.7 cm upper pole cyst. No hydronephrosis or renal calculi. The kidney measures 11.3 cm in maximum dimension. LEFT KIDNEY: Normal. No hydronephrosis. No renal calculi or focal parenchymal lesions. The kidney measures 10.4 cm in maximum dimension. SPLEEN: Normal. The spleen measures 11.5 cm in maximum dimension. FREE FLUID: None. US/US abdomen complete IMPRESSION: 1. Diffusely increased liver echogenicity. This is a nonspecific finding but most suggestive of hepatic steatosis. Correlation with liver enzymes recommended. 2. Simple appearing 3.7 cm right renal cyst. No follow-up imaging is routinely warranted for simple appearing renal cysts.
== END 2022-07-13 10:21 | disposition home or self-care (01) ==
LOC: HO.US 10:20
PROVIDERS: PCP Internal Medicine; Visit Provider Internal Medicine
DX: R79.89 Other specified abnormal findings of blood chemistry (principal)
CPT/HCPCS: 76700

== ENCOUNTER 2022-08-16 09:22 | Outpatient (REF) | payer OTHER, SELFPAY ==
[2022-08-16 10:30] LABS: MANUAL DIFF FLAG NO
[2022-08-16 10:34] LABS: Basophils Absolute Auto 0.1 X10*3/uL (0.0-0.2); Basophils Percent Auto 0.8 % (0-2); Eosinophils Absolute Auto 0.3 X10*3/uL (0.0-0.4); Eosinophils Percent Auto 3.3 % (0-4); Hemoglobin 16.6 g/dl (14.0-18.0); Imm Gran Abs Auto 0.01 X10*3/uL (0.00-0.03); Imm Gran Pct Auto 0.1 % (0.0-0.4); Lymphocytes Absolute Auto 2.2 X10*3/uL (1.2-4.9); Lymphocytes Percent Auto 25.6 % (20-40); Mean Corpuscular HGB Conc 35.3 g/dl (31.0-36.0); Mean Corpuscular Hemoglobin 31.6 pg (27.0-33.0); Mean Corpuscular Volume 89.5 fL (80.0-98.0); Mean Platelet Volume 9.3 fL (9.4-12.4); Monocytes Absolute Auto 0.6 X10*3/uL (0.1-1.2); Monocytes Percent Auto 7.3 % (2-11); Neutrophils Absolute Auto 5.3 x10*3/uL (2.0-8.3); Neutrophils Percent Auto 62.9 % (45-73); Platelet Count 247 X10*3/uL (160-400); Red Blood Count 5.25 X10*6/uL (4.60-5.80); Red Cell Distribution Width 12.3 % (11.0-16.0); White Blood Count 8.4 X10*3/uL (4.8-10.8)
[2022-08-16 10:52] LABS: Appearance Urine Clear; Color Urine Yellow; Glucose Urine UA Negative (Negative); Leukocyte Esterase Urine Negative (Negative); Nitrite Urine Negative (Negative); PH 7.5 (5.0-9.0); Specific Gravity - Urine 1.025 (1.005-1.025); Urine Blood Negative (Negative); Urine Ketones Negative (Negative); Urine Protein Negative (Neg-Trace)
[2022-08-16 12:27] LABS: Alanine Aminotransferase 72 U/L (0-40); Albumin Level 4.3 g/dL (3.5-5.0); Alkaline Phosphatase 124 U/L (39-117); Anion Gap 12 (12-20); Aspartate Amino Transferase 44 U/L (5-37); Bilirubin Total 0.8 mg/dL (0.0-1.0); Blood Urea Nitrogen 16 mg/dL (9-16); Calcium 9.4 mg/dL (8.4-10.2); Carbon Dioxide 28 mmol/L (22-29); Chloride 103 mmol/L (96-108); Cholesterol 163 mg/dL; Estimated Glomerular Filt Rate > 60; Glucose Fasting 87 mg/dL (60-99); HDL Cholesterol 47 mg/dL; LDL Cholesterol Calculated 93 mg/dl; Potassium 4.2 mmol/L (3.3-5.1); Sodium 139 mmol/L (135-145); TSH reflex Free T4 0.97 uIU/mL (0.32-4.0); Total Protein 7.4 g/dL (6.5-8.0); Triglycerides 119 mg/dL
== END 2022-08-16 09:23 | disposition home or self-care (01) ==
LOC: HO.10HDL 09:22
PROVIDERS: Visit Provider Internal Medicine
DX: I10 Essential (primary) hypertension (principal); E78.00 Pure hypercholesterolemia, unspecified; R30.0 Dysuria; E55.9 Vitamin D deficiency, unspecified
CPT/HCPCS: 36415; 80053; 80061; 81003; 82306; 84443; 85025

== ENCOUNTER 2022-12-21 09:19 | Outpatient (REF) | payer OTHER, SELFPAY ==
[2022-12-21 10:03] LABS: Basophils Absolute Auto 0.1 X10*3/uL (0.0-0.2); Basophils Percent Auto 0.8 % (0-2); Eosinophils Absolute Auto 0.3 X10*3/uL (0.0-0.4); Eosinophils Percent Auto 3.2 % (0-4); Hematocrit 48.8 % (42.0-52.0); Hemoglobin 17.1 g/dl (14.0-18.0); Imm Gran Abs Auto 0.02 X10*3/uL (0.00-0.03); Imm Gran Pct Auto 0.2 % (0.0-0.4); Lymphocytes Absolute Auto 2.2 X10*3/uL (1.2-4.9); Lymphocytes Percent Auto 25.8 % (20-40); MANUAL DIFF FLAG SCAN; Mean Corpuscular Hemoglobin 31.3 pg (27.0-33.0); Mean Corpuscular Volume 89.2 fL (80.0-98.0); Mean Platelet Volume 10.1 fL (9.4-12.4); Monocytes Absolute Auto 0.6 X10*3/uL (0.1-1.2); Monocytes Percent Auto 7.1 % (2-11); Neutrophils Absolute Auto 5.4 x10*3/uL (2.0-8.3); Neutrophils Percent Auto 62.9 % (45-73); PLT CLUMP 1; Red Blood Count 5.47 X10*6/uL (4.60-5.80); Red Cell Distribution Width 11.9 % (11.0-16.0); SCAN SMEAR FLAG 1
[2022-12-21 10:32] LABS: Platelet Count 195 X10*3/uL (160-400); SLIDE REVIEW VERIFIED; White Blood Count 8.5 X10*3/uL (4.8-10.8)
[2022-12-21 11:05] LABS: Alanine Aminotransferase 71 U/L (0-40); Albumin Level 4.4 g/dL (3.5-5.0); Alkaline Phosphatase 130 U/L (39-117); Anion Gap 14 (12-20); Aspartate Amino Transferase 50 U/L (5-37); Bilirubin Total 0.7 mg/dL (0.0-1.0); Blood Urea Nitrogen 16 mg/dL (9-16); Calcium 9.8 mg/dL (8.4-10.2); Carbon Dioxide 23 mmol/L (22-29); Chloride 105 mmol/L (96-108); Cholesterol 172 mg/dL; Estimated Glomerular Filt Rate > 60; Glucose Fasting 79 mg/dL (60-99); HDL Cholesterol 52 mg/dL; LDL Cholesterol Calculated 95 mg/dl; Potassium 4.7 mmol/L (3.3-5.1); Sodium 137 mmol/L (135-145); Total Protein 8.4 g/dL (6.5-8.0); Triglycerides 129 mg/dL
[2022-12-21 11:16] LABS: Appearance Urine Clear; Color Urine Yellow; Glucose Urine UA Negative (Negative); Leukocyte Esterase Urine Negative (Negative); Nitrite Urine Negative (Negative); Urine Blood Negative (Negative); Urine Ketones Negative (Negative); Urine Protein Negative (Neg-Trace)
== END 2022-12-21 09:20 | disposition home or self-care (01) ==
LOC: HO.LAB 09:19
PROVIDERS: PCP Internal Medicine; Visit Provider Internal Medicine
DX: I10 Essential (primary) hypertension (principal); E78.00 Pure hypercholesterolemia, unspecified; R30.0 Dysuria
CPT/HCPCS: 36415; 80053; 80061; 81003; 85025

== ENCOUNTER 2022-12-25 12:57 | Outpatient (AMB) | payer OTHER, SELFPAY ==
[2022-12-25 13:01] VITALS: BP 136/82; PULSE 83; O2SAT 98; BMI 29.4
--- NOTE | 2022-12-25 13:01 | A.OFFPC_ITS ---
Vital Signs 12/25/22 13:01 Height 5 ft 9 in Weight 199 lb BMI 29.4 BP 136/82 Blood Pressure Location Lt brachial Position Sitting Pulse 83 Pulse Source Pulse Oximeter Pulse Oximetry (%) 98 Oxygen Delivery Method Room Air Intake Visit Reasons: hyperlipidemia, elevated LFTs [employer] Required: No Accompanied by: Self / Same As Patient Allergies statins Adverse Reaction (Unknown, Uncoded 12/25/22 13:25) elevated liver enzymes Medication List - Last Reconciled 12/25/22 by Giovanni Talbert MD acetaminophen 500 mg PO Q6H PRN atorvastatin 10 mg PO BEDTIME 30 days cholecalciferol (vitamin D3) 50 mcg PO DAILY 90 days ezetimibe 10 mg PO DAILY 90 days fluticasone propionate 50 mcg/actuation (Flonase Allergy Relief) 1 spray intranasal DAILY ibuprofen 600 mg PO TID PRN lisinopril 2.5 mg PO DAILY 30 days sumatriptan succinate 50 mg PO Q2-4H PRN topiramate 25 mg PO BEDTIME Tobacco use date assessed: 12/25/22 Dental Screening Dental Screen Date: 12/25/22 Did you have a dental visit in the last 12 months?: Yes Did you have a dental problem in the last 6 months where you did not have access to dental care?: No Was dental information given to patient?: Patient has dentist HPI hyperlipidemia, elevated LFTs HPI Details Patient comes in today for his follow up visit States that he feels okay He denies any headaches or dizziness Denies any chest pains, no SOB No nausea/vomiting, no abdominal pain No change in bowel habits noted Had his follow up labs done a few days ago - to discuss his results [facility] Medical History Allergic rhinitis Blurring of visual image of both eyes Elevated LFTs Migraine Obesity (BMI 30-39.9) Pure hypercholesterolemia Vitamin D deficiency Surgical History No pertinent past surgical history Family History Father Lung cancer Mother Hypertension Hyperlipidemia Asthma Maternal Grandmother No problems noted. Maternal Grandfather CAD (coronary artery disease) Brother In good health Sister In good health Social History Housing: Apartment Alcohol intake: never Patient Tobacco Use Status: Never used Tobacco e-Cigarette/Vaping Use: Never Used Second Hand Smoke Exposure: Yes service: No Current occupational status: disabled Cognitive needs: No Hearing needs: No Vision needs: No Questionnaire PHQ-9 Over the last 2 weeks, how often have you been bothered by any of the following problems? 1. Little interest or pleasure in doing things: not at all 2. Feeling down, depressed, or hopeless: not at all 3. Trouble falling or staying asleep, or sleeping too much: not at all 4. Feeling tired or having little energy: not at all 5. Poor appetite or overeating: not at all 6. Feeling bad about yourself - or that you are a failure or have let yourself or your family down: not at all 7. Trouble concentrating on things, such as reading the newspaper or watching television: not at all 8. Moving or speaking so slowly that other people could have noticed. Or the opposite - being so fidgety or restless that you have been moving around a lot more than usual: not at all 9. Thoughts that you would be better off or of hurting yourself in some way: not at all Total score: 0 Depression Screening Interpretation: Negative 40721 - PHQ-9 Billing: Yes Source: Developed by Drs. Gregorio Bridges, Diane Frankel, Pantera Alan and colleagues, with an educational ayleen from [employer]. Thrive Questionnaire Date Thrive assessed: 12/25/22 I am a: Patient What is your living situation today?: I have a steady place to live Within the past 12 months, did the food you bought not last and you didn't have the money to get more?: Never true Within the past 12 months, did you worry whether your food would run out before you got money to buy more?: Never true Do you have trouble paying for medicines?: No Do you have trouble getting transportation to medical appointments?: No Do you have trouble paying your heating and electricity bill?: No Do you have trouble taking care of your child, family member or friend?: No Do you have trouble with day-to-day activities such as bathing, preparing meals, shopping, managing finances, etc.?: No Are you currently unemployed and looking for a job?: No Are you interested in more education?: No Please select the resources that you would like help with: None Currently or been in a relationship where the following occur: no concerns reported AUDIT C Alcohol Use Questionnaire (AUDIT-C) 1. How often do you have a drink containing alcohol?: Never 3. How often do you have six or more drinks on one occasion?: Never Total Score: 0 Score Reviewed/Action Taken: Yes DONA-7 AMB Questionnaire DONA-7 Date DONA - 7 assessed: 12/25/22 Feeling nervous, anxious, or on edge: 0 = Not at all Not being able to stop or control worryin = Not at all Worrying too much about different things: 0 = Not at all Trouble relaxin = Not at all Being so restless that it is hard to sit still: 0 = Not at all Becoming easily annoyed or irritable: 0 = Not at all Feeling afraid as if something awful might happen: 0 = Not at all Total DONA-7 score (0-4 normal; 5-9 mild; 10-14 moderate; 15-21 severe): 0 Source: Developed by Drs. Gregorio Bridges, Diane Frankel, Pantera Alan and colleagues, with an educational ayleen from [employer]. Review of Systems Const Denies difficulty sleeping, Denies fatigue, Denies fever(s) and Reports headache(s) (on and off, mostly around the area of the left ear - mild) ENT Denies dysphagia, Denies dizziness, Denies otalgia, Reports headache(s) (on and off, mostly around the area of the left ear - mild), Denies neck pain, Denies odynophagia, Denies tinnitus and Denies sore throat Card Denies chest pain, Denies palpitations and Denies dyspnea Resp Denies cough and Denies dyspnea GI Denies abdominal pain, Denies constipation, Denies dysphagia, Denies heartburn, Denies diarrhea, Denies nausea, Denies odynophagia and Denies vomiting Denies dysuria, Denies nocturia and Denies urinary frequency Musc Denies neck pain Neuro Denies dizziness and Reports headache(s) (on and off, mostly around the area of the left ear - mild) Endo Denies fatigue and Denies palpitations Physical exam (Primary Care) Vital Signs: Last Vital Signs Pulse 83 12/25/22 13:01 BP 136/82 12/25/22 13:01 Pulse Ox 98 12/25/22 13:01 Oxygen Delivery Method Room Air 12/25/22 13:01 BMI result Body Mass Index 29.4 Tobacco/Smoking Status: Tobacco use Status Tobacco use date assessed 12/25/22 12/25/22 13:07 Patient Tobacco Use Status Never used Tobacco 12/25/22 13:07 e-Cigarette/Vaping Use Never Used 12/25/22 13:07 PHQ-9: PHQ-9 Score PHQ-9: Total score 0 12/25/22 13:07 Depression Screening Interpretation: Negative Thrive Assessment: Date of Thrive Assessment Date Thrive assessed 12/25/22 12/25/22 13:07 Currently or been in a relationship where the following occur: no concerns reported Const General: no acute distress and alert HENMT Ears: TM's normal bilaterally and EAC's normal Throat: Yes posterior oropharynx normal and Yes tonsils normal (no TP congestion noted) Neck Neck: Yes no lymphadenopathy and Yes supple Resp Auscultation: clear to auscultation bilaterally, no rales and no wheezes Cardio Rate: regular rate Rhythm: regular rhythm Heart sounds: no murmurs GI Palpation (GI): Soft to palpation and nontender Auscultation: normal bowel sounds General: Yes no CVA tenderness Back/Spine/Pelvis Back: no CVA tenderness Extrem General: Yes no clubbing, cyanosis or edema Results Reviewed Results Reviewed: Laboratory Tests 12/21/22 12/21/22 12/21/22 09:34 09:34 09:50 WBC 8.5 Hgb 17.1 Hct 48.8 Plt Count 195 Sodium 137 Potassium 4.7 Creatinine 1.00 Estimated GFR > 60 Fasting Glucose 79 Calcium 9.8 AST 50 H ALT 71 H Alkaline Phosphatase 130 H Triglycerides 129 Cholesterol 172 LDL Cholesterol, Calc 95 HDL Cholesterol 52 Ur Specific [place] 1.010 Urine Protein Negative Urine Glucose (UA) Negative Urine Blood Negative Assessment and Plan Assessment & Plan (1) Pure hypercholesterolemia: Code(s): E78.00 - Pure hypercholesterolemia, unspecified Plan: Results of his labs done a few days ago reviewed and discussed with patient Reinforced low cholesterol diet Continue Ezetimibe 10 mg QD His Atorvastatin was previously HELD as it appeared to be bothering him and causing a lot of his recent vague but bothersome symptoms, including weakness, dizziness, nausea - states that these symptoms have improved a lot since His LFTs were also increased on his previous and recent labs and HOLDING his Atorvastatin did not seem to have had any effect on this Abdominal US done back in July 2022 came back with only positive findings of hepatic steatosis Will recheck his labs and fasting lipids in 4 months for follow up (2) Elevated LFTs: Code(s): R79.89 - Other specified abnormal findings of blood chemistry Plan: Patient's LFTs remain elevated on his recent labs - is most likely due to a combination of his weight and cholesterol level Abdominal US done back in July 2022 came out significant only for findings of hepatis steatosis Will recheck his LFTs in 4 months for follow up; will also check his hepatitis profile then for further evaluation (3) Elevated blood pressure reading: Code(s): R03.0 - Elevated blood-pressure reading, without diagnosis of hypertension Plan: BP is better today at 136/82 Reinforced low sodium diet Patient is instructed to continue monitoring his BP regularly - goal is systolic BP of 120 mm or less (4) Migraine: Code(s): G43.909 - Migraine, unspecified, not intractable, without status migrainosus Qualifiers: Migraine type: unspecified Status migrainosus presence: without status migrainosus Intractability: not intractable Qualified Code(s): G43.909 - Migraine, unspecified, not intractable, without status migrainosus Plan: States that his headaches have been better controlled on Topiramate 25 mg QHS - started by neurology (Dr. Lucas) Reinforced avoidance of migraine triggers Continue Sumatriptan 50 mg PRN Follow up with neurology as scheduled (5) Allergic rhinitis: Code(s): J30.9 - Allergic rhinitis, unspecified Qualifiers: Allergic rhinitis trigger: unspecified Allergic rhinitis seasonality: unspecified Qualified Code(s): J30.9 - Allergic rhinitis, unspecified Plan: Continue Fluticasone 50 mcg nasal spray QD PRN (6) Vitamin D deficiency: Code(s): E55.9 - Vitamin D deficiency, unspecified Plan: Improving - continue Vitamin D3 2000 units QD (7) Obesity (BMI 30-39.9): Code(s): E66.9 - Obesity, unspecified Plan: Reinforced diet/exercise as tolerated/lose weight Plan Follow up in 4 months Orders: Orders Comprehensive [place]. Panel Fast 4 Months E78.00 - Pure hypercholesterolemia, unspecified Lipid Panel 4 Months E78.00 - Pure hypercholesterolemia, unspecified TSH reflex Free T4 4 Months E78.00 - Pure hypercholesterolemia, unspecified Vitamin D 25-OH Total 4 Months E55.9 - Vitamin D deficiency, unspecified Complete Blood Count Auto Diff 4 Months I10 - Essential (primary) hypertension UA CC w/rflx Micro + Cult 4 Months R30.0 - Dysuria Hepatitis A,B,C Profile 4 Months R79.89 - Other specified abnormal findings of blood chemistry Coding Level of Care Code Est Pt Level 4 (70378) Diagnoses Pure hypercholesterolemia E78.00 Elevated LFTs R79.89 Elevated blood pressure reading R03.0 Migraine G43.909 Migraine type: unspecified Status migrainosus presence: without status migrainosus Intractability: not intractable Allergic rhinitis J30.9 Allergic rhinitis trigger: unspecified Allergic rhinitis seasonality: unspecified Vitamin D deficiency E55.9 Obesity (BMI 30-39.9) E66.9
== END 2022-12-25 13:53 | disposition home or self-care (01) ==
PROVIDERS: PCP Internal Medicine; Visit Provider Internal Medicine
DX: G43.909 Migraine, unspecified, not intractable, without status migrainosus (principal); E55.9 Vitamin D deficiency, unspecified; E66.9 Obesity, unspecified; Z68.29 Body mass index [BMI] 29.0-29.9, adult; J30.9 Allergic rhinitis, unspecified; E78.00 Pure hypercholesterolemia, unspecified; R79.89 Other specified abnormal findings of blood chemistry; R03.0 Elevated blood-pressure reading, without diagnosis of hypertension
CPT/HCPCS: 99214

== ENCOUNTER 2023-04-20 10:35 | Outpatient (REF) | payer OTHER, SELFPAY ==
[2023-04-20 12:59] LABS: MANUAL DIFF FLAG NO
[2023-04-20 13:00] LABS: Basophils Absolute Auto 0.1 X10*3/uL (0.0-0.2); Eosinophils Absolute Auto 0.2 X10*3/uL (0.0-0.4); Eosinophils Percent Auto 2.2 % (0-4); Hematocrit 47.7 % (42.0-52.0); Hemoglobin 16.7 g/dl (14.0-18.0); Imm Gran Abs Auto 0.01 X10*3/uL (0.00-0.03); Imm Gran Pct Auto 0.1 % (0.0-0.4); Lymphocytes Percent Auto 29.1 % (20-40); Mean Corpuscular Hemoglobin 31.6 pg (27.0-33.0); Mean Corpuscular Volume 90.3 fL (80.0-98.0); Mean Platelet Volume 9.3 fL (9.4-12.4); Monocytes Absolute Auto 0.5 X10*3/uL (0.1-1.2); Monocytes Percent Auto 7.3 % (2-11); Neutrophils Absolute Auto 4.1 x10*3/uL (2.0-8.3); Neutrophils Percent Auto 60.3 % (45-73); Platelet Count 246 X10*3/uL (160-400); Red Blood Count 5.28 X10*6/uL (4.60-5.80); Red Cell Distribution Width 11.9 % (11.0-16.0); White Blood Count 6.7 X10*3/uL (4.8-10.8)
[2023-04-20 13:03] LABS: Appearance Urine Clear; Color Urine Yellow; Glucose Urine UA Negative (Negative); Leukocyte Esterase Urine Negative (Negative); Nitrite Urine Negative (Negative); Specific Gravity - Urine 1.025 (1.005-1.025); Urine Blood Negative (Negative); Urine Ketones Trace mg/dL (Negative); Urine Protein Negative (Neg-Trace)
[2023-04-20 13:18] LABS: Alanine Aminotransferase 62 U/L (0-40); Albumin Level 4.5 g/dL (3.5-5.0); Alkaline Phosphatase 132 U/L (39-117); Anion Gap 12 (12-20); Aspartate Amino Transferase 42 U/L (5-37); Bilirubin Total 0.7 mg/dL (0.0-1.0); Blood Urea Nitrogen 17 mg/dL (9-16); Calcium 9.6 mg/dL (8.4-10.2); Carbon Dioxide 28 mmol/L (22-29); Chloride 102 mmol/L (96-108); Cholesterol 213 mg/dL (<200); Estimated Glomerular Filt Rate > 60; Glucose Fasting 83 mg/dL (60-99); HDL Cholesterol 59 mg/dL (>40); LDL Cholesterol Calculated 134 mg/dL (<100); Potassium 3.6 mmol/L (3.3-5.1); Sodium 138 mmol/L (135-145); Total Protein 8.2 g/dL (6.5-8.0); Triglycerides 104 mg/dL (<150)
[2023-04-20 13:33] LABS: HBS Num1 2.99 mIU/mL (0-7.99); HBc Num1 0.07 S/CO (0.00-0.79); HBsAGNum1 0.28 S/CO (0.00-0.99); Hepatitis A Antibody IgM 0.11 Index (0-0.79); Hepatitis B Core Antibody Nonreactive (Nonreactive); Hepatitis B Surface Antigen Negative (Negative); ~HepC Num1 0.11 S/CO (0.00-0.79); ~Hepatitis A Antibody IgM Nonreactive (Nonreactive); ~Hepatitis B Surface Antibody NONREACTIVE (Nonreactive); ~Hepatitis C Antibody Nonreactive (Nonreactive)
[2023-04-20 13:34] LABS: TSH reflex Free T4 0.71 uIU/mL (0.32-4.0); Vitamin D 25-OH Total 52.2 ng/mL (>30)
== END 2023-04-20 10:36 | disposition home or self-care (01) ==
LOC: HO.10HDL 10:35
PROVIDERS: Visit Provider Internal Medicine
DX: E78.00 Pure hypercholesterolemia, unspecified (principal); R79.89 Other specified abnormal findings of blood chemistry; I10 Essential (primary) hypertension; R30.0 Dysuria; E55.9 Vitamin D deficiency, unspecified
CPT/HCPCS: 36415; 80053; 80061; 81003; 82306; 84443; 85025; 86704; 86706; 86709; 86803; 87340

== ENCOUNTER 2023-04-25 13:13 | Outpatient (AMB) | payer OTHER, SELFPAY ==
[2023-04-25 13:14] VITALS: BP 138/82; PULSE 82; O2SAT 97; BMI 27.5
--- NOTE | 2023-04-25 13:14 | MHC.PC.OV ---
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 Media Director Required: No Accompanied by: Self / Same As Patient Allergies statins Adverse Reaction (Unknown, Uncoded 04/25/23 14:01) elevated liver enzymes Medication List - Last Reconciled 04/25/23 by Giovanni Talbert MD acetaminophen 500 mg PO Q6H PRN cholecalciferol (vitamin D3) 50 mcg PO DAILY 90 days fluticasone propionate 50 mcg/actuation (Flonase Allergy Relief) 1 spray intranasal DAILY ibuprofen 600 mg PO TID PRN lisinopril 2.5 mg PO DAILY 30 days sumatriptan succinate 50 mg PO Q2-4H PRN topiramate 25 mg PO BEDTIME Tobacco use date assessed: 04/25/23 Dental Screening Dental Screen Date: 04/25/23 Did you have a dental visit in the last 12 months?: No Did you have a dental problem in the last 6 months where you did not have access to dental care?: No Was dental information given to patient?: No HPI 4 month f/u HPI Details Patient comes in today for his follow up visit States that he feels okay He denies any headaches or dizziness Denies any chest pains, no SOB No nausea/vomiting, no abdominal pain No change in bowel habits noted Had his follow up labs done a few days ago - to discuss his results Admits that he stopped taking his Ezetimibe a few weeks ago as he was noticing some weird smells in his nose while he was on the medication; states that the symptoms gradually went away after he stopped taking the Rx Would also like to get his flu shot today PFSH Medical History Vitamin D deficiency Allergic rhinitis Migraine Blurring of visual image of both eyes Obesity (BMI 30-39.9) Elevated LFTs Pure hypercholesterolemia Surgical History No pertinent past surgical history Family History Father Lung cancer Mother Hypertension Hyperlipidemia Asthma Maternal Grandmother No problems noted. Maternal Grandfather CAD (coronary artery disease) Brother In good health Sister In good health Social History Housing: Apartment Alcohol intake: never Patient Tobacco Use Status: Never used Tobacco e-Cigarette/Vaping Use: Never Used Second Hand Smoke Exposure: Yes service: No Current occupational status: disabled Cognitive needs: No Hearing needs: No Vision needs: No Questionnaire PHQ-9 Over the last 2 weeks, how often have you been bothered by any of the following problems? 1. Little interest or pleasure in doing things: not at all 2. Feeling down, depressed, or hopeless: not at all 3. Trouble falling or staying asleep, or sleeping too much: not at all 4. Feeling tired or having little energy: not at all 5. Poor appetite or overeating: not at all 6. Feeling bad about yourself - or that you are a failure or have let yourself or your family down: not at all 7. Trouble concentrating on things, such as reading the newspaper or watching television: not at all 8. Moving or speaking so slowly that other people could have noticed. Or the opposite - being so fidgety or restless that you have been moving around a lot more than usual: not at all 9. Thoughts that you would be better off or of hurting yourself in some way: not at all Total score: 0 Depression Screening Interpretation: Negative Depression Screening Done: Yes 68451 - PHQ-9 Billing: Yes Source: Developed by Drs. Gregorio Bridges, Diane Frankel, Pantera Alan and colleagues, with an educational ayleen from [employer]. Thrive Questionnaire Date Thrive assessed: 04/25/23 I am a: Patient What is your living situation today?: I have a steady place to live Within the past 12 months, did the food you bought not last and you didn't have the money to get more?: Never true Within the past 12 months, did you worry whether your food would run out before you got money to buy more?: Never true Do you have trouble paying for medicines?: No Do you have trouble getting transportation to medical appointments?: No Do you have trouble paying your heating and electricity bill?: No Do you have trouble taking care of your child, family member or friend?: No Do you have trouble with day-to-day activities such as bathing, preparing meals, shopping, managing finances, etc.?: No Are you currently unemployed and looking for a job?: No Are you interested in more education?: No Please select the resources that you would like help with: None Currently or been in a relationship where the following occur: no concerns reported AUDIT C Alcohol Use Questionnaire (AUDIT-C) 1. How often do you have a drink containing alcohol?: Never 3. How often do you have six or more drinks on one occasion?: Never Total Score: 0 Score Reviewed/Action Taken: Yes DONA-7 AMB Questionnaire DONA-7 Date DONA - 7 assessed: 04/25/23 Feeling nervous, anxious, or on edge: 0 = Not at all Not being able to stop or control worryin = Not at all Worrying too much about different things: 0 = Not at all Trouble relaxin = Not at all Being so restless that it is hard to sit still: 0 = Not at all Becoming easily annoyed or irritable: 0 = Not at all Feeling afraid as if something awful might happen: 0 = Not at all Total DONA-7 score (0-4 normal; 5-9 mild; 10-14 moderate; 15-21 severe): 0 Source: Developed by Drs. Gregorio Bridges, Diane Frankel, Pantera Alan and colleagues, with an educational ayleen from [employer]. Review of Systems Const Denies chills, Denies fatigue, Denies fever(s) and Denies headache(s) ENT Denies dysphagia, Denies dizziness, Denies otalgia, Denies headache(s), Denies neck pain, Denies odynophagia and Denies sore throat Card Denies chest pain, Denies palpitations and Denies dyspnea Resp Denies cough and Denies dyspnea GI Denies abdominal pain, Denies constipation, Denies dysphagia, Denies heartburn, Denies diarrhea, Denies nausea, Denies odynophagia and Denies vomiting Denies dysuria, Denies nocturia and Denies urinary frequency Musc Denies neck pain Skin/Breast Denies rash Neuro Denies dizziness and Denies headache(s) Endo Denies fatigue and Denies palpitations Physical exam (Primary Care) Vital Signs: Last Vital Signs Pulse 82 04/25/23 13:14 BP 138/82 04/25/23 13:14 Pulse Ox 97 04/25/23 13:14 Oxygen Delivery Method Room Air 04/25/23 13:14 BMI result Body Mass Index 27.5 Tobacco/Smoking Status: Tobacco use Status Tobacco use date assessed 04/25/23 04/25/23 13:20 Patient Tobacco Use Status Never used Tobacco 04/25/23 13:20 e-Cigarette/Vaping Use Never Used 04/25/23 13:20 PHQ-9: PHQ-9 Score PHQ-9: Total score 0 04/25/23 14:04 Depression Screening Interpretation: Negative Thrive Assessment: Date of Thrive Assessment Date Thrive assessed 04/25/23 04/25/23 13:20 Currently or been in a relationship where the following occur: no concerns reported Const General: no acute distress and alert HENMT Ears: TM's normal bilaterally and EAC's normal Throat: Yes posterior oropharynx normal and Yes tonsils normal (no TP congestion noted) Neck Neck: Yes no lymphadenopathy and Yes supple Resp Auscultation: clear to auscultation bilaterally, no rales and no wheezes Cardio Rate: regular rate Rhythm: regular rhythm Heart sounds: no murmurs GI Palpation (GI): Soft to palpation and nontender Auscultation: normal bowel sounds General: Yes no CVA tenderness Back/Spine/Pelvis Back: no CVA tenderness Extrem General: Yes no clubbing, cyanosis or edema Office Procedures Flu Questionnaire Does the patient have a severe egg allergy?: No Does the patient have severe life threatening allergies?: No Does the patient have a fever or illness today?: No Has the patient ever had Guillain-Wrentham Syndrome?: No Has the patient ever had any past reaction to a flu shot?: No Immunizations flu vacc [id number] 6mos up(PF) 60 mcg(15 mcgx4)/0.5 mL IM syringe Performing Provider: Giovanni Talbert MD Performing Location: [facility] Administered by: Clem Archibald on 04/25/23 14:06 Dose Route Admin Location Dispensed Lot Number Expiration Date [employer] 0.5 mL IM Right Deltoid 0.5 mL [id number] 11/04/23 [id number] [employer] VIS Given Date VIS Provided VIS Publication Date 04/25/23 Single Vaccine 20 Eligibility Eligibility Date Funding Source Not VF Eligible 04/25/23 Private Results Reviewed Results Reviewed: Laboratory Tests 01/17/22 04/20/23 04/20/23 15:20 10:40 10:40 WBC 6.7 Hgb 16.7 Hct 47.7 Plt Count 246 D Sodium 138 Potassium 3.6 D Creatinine 0.87 Estimated GFR > 60 Fasting Glucose 83 Calcium 9.6 AST 42 H ALT 62 H Alkaline Phosphatase 132 H Triglycerides 104 Cholesterol 213 H LDL Cholesterol, Calc 134 H HDL Cholesterol 59 25-OH Vitamin D Total 52.2 TSH 0.71 Ur Specific [place] 1.025 Urine Protein Negative Urine Glucose (UA) Negative Urine Blood Negative Hepatitis A IgM Ab Nonreactive Hep Bs Antigen Negative Hep Bs Antibody NONREACTIVE Hep B Core Total Ab Nonreactive Hepatitis C Ab (EIA) Nonreactive SARS Antigen (LFIA) Negative Assessment and Plan Assessment & Plan (1) Pure hypercholesterolemia: Code(s): E78.00 - Pure hypercholesterolemia, unspecified Plan: Results of his labs done a few days ago reviewed and discussed with patient - his total and LDL cholesterol have increased significantly from previous since he is currently no longer taking any Rx for his cholesterol He was tried on Ezetimibe 10 mg QD recently but patient self-discontinued the medication due to complaint of weird smells in his nose repeatedly when he was taking the Rx He was also taken off Atorvastatin previously due to vague symptoms that include weakness, dizziness, nausea and myalgia as well as elevated LFTs His LFTs are still slightly elevated on his recent labs but they appear to be gradually improving Abdominal US done back in July 2022 came back with only positive findings of hepatic steatosis; hepatitis profile done a few days ago all came back negative Will recheck his labs and fasting lipids in 4 months for follow up - advised that we can try starting him on a low dose of a different cholesterol Rx when his LFTs are back to normal and if he really cannot tolerate any of the available statins, then we will need to consider starting him on some of the newer PCSK9 inhibitors that are only available by injections, which patient is very hesitant to do (2) Elevated LFTs: Code(s): R79.89 - Other specified abnormal findings of blood chemistry Plan: Patient's LFTs remain slightly elevated on his recent labs but they have improved slightly from previous - is most likely due to a combination of his weight and cholesterol level Abdominal US done back in July 2022 came out significant only for findings of hepatis steatosis; hepatitis profile done a few days ago all came back negative Will recheck his LFTs in 4 months for follow up (3) Elevated blood pressure reading: Code(s): R03.0 - Elevated blood-pressure reading, without diagnosis of hypertension Plan: BP remains reasonably controlled today at 138/82 mm Reinforced low sodium diet Patient is reminded to continue monitoring his BP regularly - goal is systolic BP of 120 mm or less (4) Migraine: Code(s): G43.909 - Migraine, unspecified, not intractable, without status migrainosus Qualifiers: Migraine type: unspecified Status migrainosus presence: without status migrainosus Intractability: not intractable Qualified Code(s): G43.909 - Migraine, unspecified, not intractable, without status migrainosus Plan: States that his headaches are well-controlled on Topiramate 25 mg QHS - started by neurology (Dr. Lucas) Reinforced avoidance of migraine triggers Continue Sumatriptan 50 mg PRN Follow up with neurology as scheduled (5) Allergic rhinitis: Code(s): J30.9 - Allergic rhinitis, unspecified Qualifiers: Allergic rhinitis trigger: unspecified Allergic rhinitis seasonality: unspecified Qualified Code(s): J30.9 - Allergic rhinitis, unspecified Plan: Continue Fluticasone 50 mcg nasal spray QD PRN (6) Vitamin D deficiency: Code(s): E55.9 - Vitamin D deficiency, unspecified Plan: Continue Vitamin D3 2000 units QD (7) Overweight (BMI 25.0-29.9): Code(s): E66.3 - Overweight Plan: Reinforced diet/exercise as tolerated/lose weight - he has been able to lose a total of at least 18 pounds since the beginning of the year Plan Follow up in 4 months Orders: Orders Comprehensive [place]. Panel Fast 4 Months E78.00 - Pure hypercholesterolemia, unspecified Influenza [id number] Immunization Today Z23 - Encounter for immunization Complete Blood Count Auto Diff 4 Months I10 - Essential (primary) hypertension Lipid Panel 4 Months E78.00 - Pure hypercholesterolemia, unspecified Vitamin D 25-OH Total 4 Months E55.9 - Vitamin D deficiency, unspecified Coding Level of Care Code Est Pt Level 4 (22935) Diagnoses Pure hypercholesterolemia E78.00 Elevated LFTs R79.89 Elevated blood pressure reading R03.0 Migraine without status migrainosus, not intractable, unspecified migraine type G43.909 Migraine type: unspecified Status migrainosus presence: without status migrainosus Intractability: not intractable Allergic rhinitis, unspecified seasonality, unspecified trigger J30.9 Allergic rhinitis trigger: unspecified Allergic rhinitis seasonality: unspecified Vitamin D deficiency E55.9 Overweight (BMI 25.0-29.9) E66.3
== END 2023-04-25 14:09 | disposition home or self-care (01) ==
PROVIDERS: PCP Internal Medicine; Visit Provider Internal Medicine
DX: E78.00 Pure hypercholesterolemia, unspecified (principal); R79.89 Other specified abnormal findings of blood chemistry; R03.0 Elevated blood-pressure reading, without diagnosis of hypertension; G43.909 Migraine, unspecified, not intractable, without status migrainosus; J30.9 Allergic rhinitis, unspecified; E55.9 Vitamin D deficiency, unspecified; E66.3 Overweight; Z23 Encounter for immunization
CPT/HCPCS: 90471; 90686; 99214

== ENCOUNTER 2023-08-21 09:37 | Outpatient (REF) | payer OTHER, SELFPAY ==
[2023-08-21 10:58] LABS: MANUAL DIFF FLAG NO
[2023-08-21 11:06] LABS: Basophils Absolute Auto 0.1 X10*3/uL (0.0-0.2); Basophils Percent Auto 0.7 % (0-2); Eosinophils Absolute Auto 0.1 X10*3/uL (0.0-0.4); Eosinophils Percent Auto 1.7 % (0-4); Hemoglobin 16.2 g/dl (14.0-18.0); Imm Gran Abs Auto 0.01 X10*3/uL (0.00-0.03); Imm Gran Pct Auto 0.1 % (0.0-0.4); Lymphocytes Percent Auto 27.8 % (20-40); Mean Corpuscular HGB Conc 35.2 g/dl (31.0-36.0); Mean Corpuscular Hemoglobin 31.6 pg (27.0-33.0); Mean Corpuscular Volume 89.7 fL (80.0-98.0); Mean Platelet Volume 9.3 fL (9.4-12.4); Monocytes Absolute Auto 0.5 X10*3/uL (0.1-1.2); Monocytes Percent Auto 7.1 % (2-11); Neutrophils Absolute Auto 4.4 x10*3/uL (2.0-8.3); Neutrophils Percent Auto 62.6 % (45-73); Platelet Count 219 X10*3/uL (160-400); Red Blood Count 5.13 X10*6/uL (4.60-5.80); Red Cell Distribution Width 11.9 % (11.0-16.0); White Blood Count 7.1 X10*3/uL (4.8-10.8)
[2023-08-21 11:49] LABS: Alanine Aminotransferase 49 U/L (0-40); Albumin Level 4.1 g/dL (3.5-5.0); Alkaline Phosphatase 129 U/L (39-117); Anion Gap 11 (12-20); Aspartate Amino Transferase 34 U/L (5-37); Bilirubin Total 0.6 mg/dL (0.0-1.0); Blood Urea Nitrogen 19 mg/dL (9-16); Calcium 9.3 mg/dL (8.4-10.2); Carbon Dioxide 26 mmol/L (22-29); Chloride 103 mmol/L (96-108); Cholesterol 206 mg/dL (<200); Estimated Glomerular Filt Rate > 60; Glucose Fasting 79 mg/dL (60-99); HDL Cholesterol 56 mg/dL (>40); LDL Cholesterol Calculated 129 mg/dL (<100); Potassium 3.9 mmol/L (3.3-5.1); Sodium 136 mmol/L (135-145); Total Protein 7.6 g/dL (6.5-8.0); Triglycerides 105 mg/dL (<150)
[2023-08-21 11:52] LABS: Vitamin D 25-OH Total 40.4 ng/mL (>30)
== END 2023-08-21 09:38 | disposition home or self-care (01) ==
LOC: HO.10HDL 09:37
PROVIDERS: Visit Provider Internal Medicine
DX: E78.00 Pure hypercholesterolemia, unspecified (principal); I10 Essential (primary) hypertension; E55.9 Vitamin D deficiency, unspecified
CPT/HCPCS: 36415; 80053; 80061; 82306; 85025

== ENCOUNTER 2023-08-27 14:09 | Outpatient (AMB) | payer OTHER, SELFPAY ==
--- NOTE | 2023-08-27 14:19 | A.OFFPC_ITS ---
Vital Signs 08/27/23 14:21 Height 5 ft 9 in Weight 179 lb 8 oz BMI 26.5 BP 122/72 Blood Pressure Location Lt brachial Position Sitting Pulse 86 Pulse Source Pulse Oximeter Pulse Oximetry (%) 98 Oxygen Delivery Method Room Air Intake Visit Reasons: hyperlipidemia, elevated LFTs Intake Note: Patient is here to follow up on HLD, Elevated LFTs. Coupon And Bond Collection Clerk Required: No It Project Coordinator: Present Accompanied by: Mother Allergies statins Adverse Reaction (Mild, Uncoded 08/08/24 13:05) elevated liver enzymes Medication List - Last Reconciled 08/27/23 by Giovanni Talbert MD acetaminophen 500 mg PO Q6H PRN cholecalciferol (vitamin D3) 50 mcg PO DAILY 90 days fluticasone propionate 50 mcg/actuation (Flonase Allergy Relief) 1 spray intranasal DAILY ibuprofen 600 mg PO TID PRN lisinopril 2.5 mg PO DAILY 30 days sumatriptan succinate 50 mg PO Q2-4H PRN topiramate 25 mg PO BEDTIME Tobacco use date assessed: 08/27/23 Dental Screening Dental Screen Date: 08/27/23 Did you have a dental visit in the last 12 months?: Yes Did you have a dental problem in the last 6 months where you did not have access to dental care?: No Was dental information given to patient?: Patient has dentist HPI hyperlipidemia, elevated LFTs HPI Details Patient comes in today for his follow up visit States that he feels okay He denies any headaches or dizziness Denies any chest pains, no SOB No nausea/vomiting, no abdominal pain No change in bowel habits noted Had his follow up labs done last week - to discuss his results [facility] Medical History Essential hypertension Lumbar degenerative disc disease Vitamin D deficiency Allergic rhinitis Migraine Blurring of visual image of both eyes Obesity (BMI 30-39.9) Elevated LFTs Pure hypercholesterolemia Surgical History No pertinent past surgical history Family History Father Lung cancer Mother Hypertension Hyperlipidemia Asthma Maternal Grandmother No problems noted. Maternal Grandfather CAD (coronary artery disease) Brother In good health Sister In good health Social History Housing: Apartment Alcohol intake: never Patient Tobacco Use Status: Never used Tobacco e-Cigarette/Vaping Use: Never Used Second Hand Smoke Exposure: No service: No Current occupational status: disabled Cognitive needs: No Hearing needs: No Vision needs: No Questionnaire PHQ-9 Over the last 2 weeks, how often have you been bothered by any of the following problems? 1. Little interest or pleasure in doing things: not at all 2. Feeling down, depressed, or hopeless: not at all 3. Trouble falling or staying asleep, or sleeping too much: not at all 4. Feeling tired or having little energy: not at all 5. Poor appetite or overeating: not at all 6. Feeling bad about yourself - or that you are a failure or have let yourself or your family down: not at all 7. Trouble concentrating on things, such as reading the newspaper or watching television: not at all 8. Moving or speaking so slowly that other people could have noticed. Or the opposite - being so fidgety or restless that you have been moving around a lot more than usual: not at all 9. Thoughts that you would be better off or of hurting yourself in some way: not at all Total score: 0 Depression Screening Interpretation: Negative Depression Screening Done: Yes 83402 - PHQ-9 Billing: Yes Source: Developed by Drs. Gregorio Bridges, Diane Frankel, Pantera Alan and colleagues, with an educational ayleen from [employer] Thrive Questionnaire Date Thrive assessed: 08/27/23 I am a: Patient What is your living situation today?: I have a steady place to live Within the past 12 months, did the food you bought not last and you didn't have the money to get more?: Never true Within the past 12 months, did you worry whether your food would run out before you got money to buy more?: Never true Do you have trouble paying for medicines?: No Do you have trouble getting transportation to medical appointments?: No Do you have trouble paying your heating and electricity bill?: No Do you have trouble taking care of your child, family member or friend?: No Do you have trouble with day-to-day activities such as bathing, preparing meals, shopping, managing finances, etc.?: No Are you currently unemployed and looking for a job?: No Are you interested in more education?: No Currently or been in a relationship where the following occur: no concerns reported THRIVE Score: 0 AUDIT C Alcohol Use Questionnaire (AUDIT-C) 1. How often do you have a drink containing alcohol?: Never 3. How often do you have six or more drinks on one occasion?: Never Total Score: 0 Score Reviewed/Action Taken: Yes DONA-7 AMB Questionnaire DONA-7 Date DONA - 7 assessed: 08/27/23 Feeling nervous, anxious, or on edge: 0 = Not at all Not being able to stop or control worryin = Not at all Worrying too much about different things: 0 = Not at all Trouble relaxin = Not at all Being so restless that it is hard to sit still: 0 = Not at all Becoming easily annoyed or irritable: 0 = Not at all Feeling afraid as if something awful might happen: 0 = Not at all Total DONA-7 score (0-4 normal; 5-9 mild; 10-14 moderate; 15-21 severe): 0 Source: Developed by Drs. Gregorio Bridges, Diane Frankel, Pantera Alan and colleagues, with an educational ayleen from [employer]. Review of Systems Const Denies chills, Denies fatigue, Denies fever(s) and Denies headache(s) ENT Denies dysphagia, Denies dizziness, Denies otalgia, Denies headache(s), Denies neck pain, Denies odynophagia and Denies sore throat Card Denies chest pain, Denies palpitations and Denies dyspnea Resp Denies chest congestion, Denies cough and Denies dyspnea GI Denies abdominal pain, Denies constipation, Denies dysphagia, Denies heartburn, Denies diarrhea, Denies nausea, Denies odynophagia and Denies vomiting Denies difficulty urinating, Denies dysuria, Denies urinary frequency and Denies urinary urgency Musc Reports back pain (recurrent, over the lower back; radiates down right leg at times) and Denies neck pain Skin/Breast Denies rash Neuro Denies dizziness and Denies headache(s) Endo Denies fatigue and Denies palpitations Physical exam (Primary Care) Vital Signs: Last Vital Signs Pulse 86 08/27/23 14:21 BP 122/72 08/27/23 14:21 Pulse Ox 98 08/27/23 14:21 Oxygen Delivery Method Room Air 08/27/23 14:21 BMI result Body Mass Index 26.5 Tobacco/Smoking Status: Tobacco use Status Tobacco use date assessed 08/27/23 08/27/23 14:26 Patient Tobacco Use Status Never used Tobacco 08/27/23 14:26 e-Cigarette/Vaping Use Never Used 08/27/23 14:26 PHQ-9: PHQ-9 Score PHQ-9: Total score 0 08/27/23 15:05 Depression Screening Interpretation: Negative Thrive Assessment: Date of Thrive Assessment Date Thrive assessed 08/27/23 08/27/23 14:26 Currently or been in a relationship where the following occur: no concerns reported Const General: no acute distress and alert HENMT Ears: TM's normal bilaterally and EAC's normal Throat: Yes posterior oropharynx normal and Yes tonsils normal (no TP congestion noted) Neck Neck: Yes supple and No lymphadenopathy Thyroid: Thyroid normal Resp Auscultation: clear to auscultation bilaterally, no rales and no wheezes Cardio Rate: regular rate Rhythm: regular rhythm Heart sounds: no murmurs GI Palpation (GI): Soft to palpation and nontender Auscultation: normal bowel sounds General: Yes no CVA tenderness Back/Spine/Pelvis Back: no CVA tenderness Thoracic/Lumbar Spine: lumbar spinal tenderness (mild) Skin Rashes: no rashes Extrem General: Yes no clubbing, cyanosis or edema Results Reviewed Results Reviewed: Laboratory Tests 08/21/23 09:40 WBC 7.1 Hgb 16.2 Hct 46.0 Plt Count 219 Sodium 136 Potassium 3.9 Creatinine 0.87 Estimated GFR > 60 Fasting Glucose 79 Calcium 9.3 AST 34 ALT 49 H Alkaline Phosphatase 129 H Triglycerides 105 Cholesterol 206 H LDL Cholesterol, Calc 129 H HDL Cholesterol 56 25-OH Vitamin D Total 40.4 Coding Level of Care Code Est Pt Level 4 (50172) Diagnoses Pure hypercholesterolemia E78.00 Elevated LFTs R79.89 Elevated blood pressure reading R03.0 Migraine without status migrainosus, not intractable, unspecified migraine type G43.909 Intractability: not intractable Migraine type: unspecified Status migrainosus presence: without status migrainosus Allergic rhinitis, unspecified seasonality, unspecified trigger J30.9 Allergic rhinitis seasonality: unspecified Allergic rhinitis trigger: unspecified Vitamin D deficiency E55.9 Overweight (BMI 25.0-29.9) E66.3
[2023-08-27 14:21] VITALS: BP 122/72; PULSE 86; O2SAT 98; BMI 26.5
== END 2023-08-27 15:06 | disposition home or self-care (01) ==
LOC: HO.HMGH 14:10
PROVIDERS: PCP Internal Medicine; Visit Provider Internal Medicine
DX: E78.00 Pure hypercholesterolemia, unspecified (principal); R79.89 Other specified abnormal findings of blood chemistry; R03.0 Elevated blood-pressure reading, without diagnosis of hypertension; G43.909 Migraine, unspecified, not intractable, without status migrainosus; J30.9 Allergic rhinitis, unspecified; E55.9 Vitamin D deficiency, unspecified; E66.3 Overweight
CPT/HCPCS: 99499

== ENCOUNTER 2023-11-15 12:43 | Outpatient (AMB) | payer OTHER, SELFPAY ==
--- NOTE | 2023-11-15 12:45 | MHC.OFFWIV ---
Intake Vital Signs 11/15/23 12:46 Height 5 ft 9 in Weight 184 lb BMI 27.2 BP 138/88 Blood Pressure Location Rt brachial Position Sitting Pulse 77 Pulse Source Pulse Oximeter Temp 98.6 F Temp Source Oral Pulse Oximetry (%) 98 Oxygen Delivery Method Room Air Intake Visit Reasons: EP back pain 1 week Intake Note: pt is here c/o lower back pain radiating down legs for 1 week. [place] something click when making bed. Patient Tobacco Use Status: Never used Tobacco Allergies statins Adverse Reaction (Unknown, Uncoded 11/15/23 12:45) elevated liver enzymes Medication List - Last Reconciled 11/15/23 by Steff Candelario NP acetaminophen 500 mg PO Q6H PRN cholecalciferol (vitamin D3) 50 mcg PO DAILY 90 days ezetimibe 10 mg PO DAILY fluticasone propionate 50 mcg/actuation (Flonase Allergy Relief) 1 spray intranasal DAILY ibuprofen 600 mg PO TID PRN lisinopril 2.5 mg PO DAILY 30 days prednisone 40 mg (2 x 20 mg) PO DAILY 5 days propranolol 10 mg PO DAILY sumatriptan succinate 50 mg PO Q2-4H PRN topiramate 25 mg PO BEDTIME Do you need a note to return to daycare/school/sports/work: No HPI EP back pain 1 week HPI Details This note is constructed using voice recognition software. While every effort has been made to ensure accuracy, radiation technician errors may have been included. 43-year-old male patient presents with low back pain for the past several days after making his bed. He notes that he has had chronic history with back pain, typically resolves with ibuprofen. He has been taking ibuprofen, heat, and icy hot topically. None seemed to resolve in the pain. He notes that he has some pain traveling down his right leg, but that seems to be intermittent in nature. No fever, chills. No specific injury noted. [facility] Medical History Vitamin D deficiency Allergic rhinitis Migraine Blurring of visual image of both eyes Obesity (BMI 30-39.9) Elevated LFTs Pure hypercholesterolemia Surgical History No pertinent past surgical history Family History Father Lung cancer Mother Hypertension Hyperlipidemia Asthma Maternal Grandmother No problems noted. Maternal Grandfather CAD (coronary artery disease) Brother In good health Sister In good health Social History Housing: Apartment Alcohol intake: never Patient Tobacco Use Status: Never used Tobacco e-Cigarette/Vaping Use: Never Used Second Hand Smoke Exposure: No service: No Current occupational status: disabled Cognitive needs: No Hearing needs: No Vision needs: No Review of Systems Const All systems reviewed & are unremarkable except as noted in HPI and below Physical Exam Vital Signs: Last Vital Signs Temp 98.6 F 11/15/23 12:46 Pulse 77 11/15/23 12:46 BP 138/88 11/15/23 12:46 Pulse Ox 98 11/15/23 12:46 Oxygen Delivery Method Room Air 11/15/23 12:46 BMI result Body Mass Index 27.2 Const General: cooperative, healthy appearing, comfortable, no acute distress and alert Orientation/consciousness: patient oriented x3 Limitations: no limitations Back/Spine/Pelvis Other: Lumbar paraspinal muscle bulk, with tenderness to palpation. Negative SLR, negative well SLR. Reduced lateral rotation and forward been due to pain. Skin General skin exam: no rashes or lesions noted, elasticity normal and turgor normal Neuro General: patient oriented x3 Extrem Other: Distal neurovascular exam intact. Strength 5/5. General: Yes normal to inspection, Yes full ROM, Yes capillary refill normal and Yes normal exam except as noted Psych Appearance: grossly normal Mental Status: mental status grossly normal Speech and movement: Normal speech and movement present Affect: normal affect Assessment & Plan Assessment & Plan (1) Lumbar strain: Code(s): S39.012A - Strain of muscle, fascia and tendon of lower back, initial encounter Qualifiers: Encounter type: initial encounter Qualified Code(s): S39.012A - Strain of muscle, fascia and tendon of lower back, initial encounter Plan: Steroid burst ordered for symptomatic relief. Advised ongoing use of topical icy hot, heat, stretches. Advised patient to follow up with PCP, especially in setting of recurrent back pain. May benefit from physical therapy with ongoing symptoms or worsening. Plan See above for full details and plan. Medications: New prednisone 40 mg (2 x 20 mg) PO DAILY 5 days 10 tabs 0RF Coding Level of Care Code Est Pt Level 3 (42834) Diagnoses Strain of lumbar region, initial encounter S39.012A Encounter type: initial encounter
[2023-11-15 12:46] VITALS: BP 138/88; PULSE 77; TEMP 37; O2SAT 98; BMI 27.2
== END 2023-11-15 13:05 | disposition home or self-care (01) ==
PROVIDERS: PCP Internal Medicine; Visit Provider Registered Nurse
DX: S39.012A Strain of muscle, fascia and tendon of lower back, initial encounter (principal)
CPT/HCPCS: 99213

== ENCOUNTER 2023-11-28 10:22 | Emergency (ER) | payer OTHER, SELFPAY ==
--- NOTE | ~2023-11-28 | XR_ITS ---
EXAMINATION: XR LUMBOSACRAL SPINE CLINICAL INFORMATION: Low back pain radiating down right lower extremity COMPARISON: 09/30/2012 TECHNIQUE: Three views of the lumbosacral spine. FINDINGS: No acute radiographic abnormalities. There are six nonrib-bearing vertebra of the lumbar spine and for the purposes of this report the lowest lumbar vertebra is considered represent L5. The L5 vertebra has a hypertrophied right transverse process. No fracture or subluxation. There are several old relatively small Schmorl's nodes at vertebral endplates. Findings include chronic mild degenerative narrowing of disc space and small anterior vertebral osteophytes at L1-L2 and L2-L3. There is no overt hypertrophic degenerative change at facet joints. Sacrum and sacroiliac joints are unremarkable. XR/XR lumbar spine 2-3V IMPRESSION: * No acute fracture or malalignment of the lumbosacral spine. * There appear to be chronic mild multilevel discovertebral degenerative changes of the lumbar spine.
[2023-11-28 10:34] VITALS: BP 155/98; PULSE 84; RESP 17; TEMP 36.6; O2SAT 98; BMI 26.6
--- NOTE | 2023-11-28 10:50 | ED.BACK ---
HPI - Back Pain/Injury General Chief Complaint: Back Pain/Injury Stated Complaint: Back pain/leg pain Time Seen by Provider: 11/28/23 10:50 Source: patient, RN notes reviewed and old records reviewed Mode of arrival: ambulatory Limitations: no limitations History of Present Illness ED Provider: RACHEL DE LA CRUZ PA-C HPI Narrative: 43 year old male with pmhx significant for migraines presents to the ED today for evaluation of lower back pain x3 weeks. Reports pain began when he went to lift a laundry basket to carry it down stairs. He felt his low back tense up. Since this time, reports constant low back pain worse with bending forward. Admits pain radiates down right leg into his right thigh. Patient states that he was seen at urgent care for this 2 weeks ago and was prescribed prednisone with minimal improvement. Additionally endorses increased urinary frequency x days. Denies dysuria, hematuria, flank pain. Denies IV drug use. Denies history of spinal surgeries. Denies injury or trauma to the back. Denies fever, chills, neck pain, bowel or bladder incontinence or retention, numbness/tingling/weakness in the lower extremities, saddle anesthesia. Related Data Home Medications ?Medication ?Instructions ?Recorded ?Confirmed sumatriptan succinate 50 mg tablet 50 mg PO Q2-4H PRN 01/17/22 11/15/23 topiramate 25 mg tablet 25 mg PO BEDTIME 02/13/22 11/15/23 ezetimibe 10 mg tablet 10 mg PO DAILY 11/15/23 11/15/23 propranolol 10 mg tablet 10 mg PO DAILY 11/15/23 11/15/23 Previous Rx's ?Medication ?Instructions ?Recorded acetaminophen 500 mg tablet 500 mg PO Q6H PRN fever or pain 09/16/21 #14 tabs ibuprofen 600 mg tablet 600 mg PO TID PRN fever or pain 09/16/21 #14 tabs fluticasone propionate 50 1 spray intranasal DAILY #9.9 mL 01/18/22 mcg/actuation nasal spray,suspension (Flonase Allergy Relief) cholecalciferol (vitamin D3) 50 50 mcg PO DAILY 90 days #90 caps 05/11/23 mcg (2,000 unit) capsule prednisone 20 mg tablet 40 mg (2 x 20 mg) PO DAILY 5 days 11/15/23 #10 tabs lisinopril 2.5 mg tablet 2.5 mg PO DAILY 30 days #90 tabs 11/21/23 cyclobenzaprine 5 mg tablet 5 mg PO Q8H #7 tabs 11/28/23 lidocaine 5 % topical patch 1 patch topical DAILY #15 ea 11/28/23 (Lidoderm) naproxen 500 mg tablet 500 mg PO Q8-12H PRN pain (scale 11/28/23 score 1-3) #20 tabs Allergies Allergy/AdvReac Type Severity Reaction Status Date / Time statins AdvReac Unknown elevated Uncoded 11/28/23 10:35 liver enzymes Review of Systems Review of Systems: Constitutional: No fever, chills, fatigue, night sweats, weight changes ENT/Mouth: No ear pain, hearing loss, nasal congestion, sinus pain, rhinorrhea, sore throat Eyes: No eye pain, swelling, redness, vision changes, discharge Cardio: No chest pain, palpitations, MARCANO, orthopnea, peripheral edema Pulm: No SOB, cough, sputum, wheezing, dyspnea, hemoptysis GI: No nausea, vomiting, hematemesis, abdominal pain, diarrhea, constipation, hematochezia, melena : No irregular bleeding, dysuria, frequency, urgency, hesitancy, hematuria, flank pain, urinary flow changes, urinary incontinence or retention, +increased urinary frequency MSK: +back pain, No neck pain, joint pain, myalgias Skin: No lesions, rashes Neuro: No weakness, numbness, paresthesias, LOC, dizziness, headache All other systems reviewed and are negative. [facility] Past Medical History Attestation statement: The following information was validated with the patient. Source: old records reviewed and nursing notes reviewed Medical History Vitamin D deficiency Allergic rhinitis Migraine Blurring of visual image of both eyes Obesity (BMI 30-39.9) Elevated LFTs Pure hypercholesterolemia Surgical History No pertinent past surgical history Family History Family History Father Lung cancer Mother Hypertension Hyperlipidemia Asthma Maternal Grandmother No problems noted. Maternal Grandfather CAD (coronary artery disease) Brother In good health Sister In good health Social History Social History Housing: Apartment Alcohol intake: never Patient Tobacco Use Status: Never used Tobacco e-Cigarette/Vaping Use: Never Used Second Hand Smoke Exposure: No Advance Directives: No Advance Directives Information Provided: No service: No Current occupational status: disabled Cognitive needs: No Hearing needs: No Vision needs: No Physical Exam Vital Signs: Vital Signs: Last Vital Signs Temp 98 F 11/28/23 10:34 Pulse 84 11/28/23 10:34 Resp 17 11/28/23 10:34 BP 155/98 H 11/28/23 10:34 Pulse Ox 98 11/28/23 10:34 O2 Del Method Room Air 11/28/23 10:34 BMI result Body Mass Index 26.6 Patient hypertensive vitals otherwise WNL. Afebrile. Const: General: cooperative, healthy appearing, comfortable and no acute distress Orientation/consciousness: patient oriented x3 Limitations: no limitations HEENT: Head: Yes normal to inspection, Yes No palpable skull fracture present, Yes normocephalic and Yes atraumatic Eyes: General: appearance normal, both eyes and all related structures Pupils: Equal, round and reactive pupils present EOM: EOMs intact bilaterally Neck: Other: + no cervical midline spinous tenderness or step-off deformity. Neck: Yes normal visual inspection, Yes full ROM and Yes no meningeal signs Resp: Effort & Inspection: normal respiratory effort and able to speak in complete sentences Auscultation: clear to auscultation bilaterally Cardio: Rate: regular rate Rhythm: regular rhythm GI: Inspection: Yes normal to inspection Palpation (GI): Soft to palpation and nontender : General: Yes no CVA tenderness Back/Spine/Pelvis: Other: No midline spinous tenderness. There is right lumbar paraspinal muscle tenderness to palpation with palpable spasm, no palpable mass, fluctuance or warmth. Back: no CVA tenderness Skin: General skin exam: no rashes or lesions noted Neuro: Other: Strength 5/5 intact throughout.? No saddle anesthesia.? Sensation intact to light touch.? Neurovascular intact distally.? General: patient oriented x3, gait normal and no meningeal signs Cranial nerves: Yes Equal, round and reactive pupils present Gait exam (Neuro): Normal gait present Course Course Course Narrative: 1211-- urine does not demonstrate infection. X-ray lumbar spine does not demonstrate acute fracture or malalignment of the spine. There are chronic mild multilevel disc or vertebral degenerative changes within the lumbar spine. > on re-evaluation, patient reports symptom improvement with Flexeril, Toradol and lidocaine patch. He is ambulating with steady gait. I discussed all workup results with patient. Likely muscle spasm. Will send Flexeril, naproxen and lidocaine patches to pharmacy for treatment. Advised to follow up with PCP as he may require physical therapy. Patient has remained stable throughout ED visit today. Discussed worrisome signs and symptoms and when to return to the ED. All questions answered at this time. Patient is agreeable with disposition and stable for discharge. Medications Administered Discontinued Medications Generic Name Dose Route Start Last Admin Trade Name Freq PRN Reason Stop Dose Admin Cyclobenzaprine HCl 10 mg 11/28/23 11:15 11/28/23 11:25 Cyclobenzaprine Hcl 10 Mg Tablet PO 11/28/23 11:16 10 mg ONCE ONE Administration Ketorolac Tromethamine 30 mg 11/28/23 11:15 11/28/23 11:26 Ketorolac Tromethamine 30 Mg/Ml Vial IM 11/28/23 11:16 30 mg ONCE ONE Administration Lidocaine 1 patch 11/28/23 11:15 11/28/23 11:25 Lidocaine 4 % Patch Adh..Patch TRANSDERMA 11/28/23 11:16 1 patch ONCE ONE Administration Protocol Medical Decision Making Medical Decision Making MDM Narrative: 43 year old male with pmhx significant for migraines presents to the ED today for evaluation of lower back pain x3 weeks. Patient hypertensive to 155/98, vitals otherwise WNL. He is nontoxic-appearing and in no acute distress. Sitting comfortably on the exam bed however in obvious discomfort with movement of the back. No midline spinous tenderness or step off deformity. There is right lumbar paraspinal muscle tenderness to palpation with palpable spasm. No palpable mass, fluctuance or warmth. Strength 5/5 intact throughout.? No saddle anesthesia.? Sensation intact to light touch.? Neurovascular intact distally.?ambulating with steady gait. 2+ patellar DTRs intact bilaterally. exam nonfocal. No CVAT bilaterally. Differential diagnosis includes muscle spasm, MSK sprain/strain, fracture, subluxation, disc herniation, sciatica, UTI, renal colic. Unlikely cord compression, cauda equina, Guillain-[place], epidural abscess, nephrolithiasis, hydronephrosis, pyelonephritis. Plan for imaging, UA, pain control, and re-evaluation. Differential Diagnosis Differential Diagnoses: The differential diagnosis associated with the presentation includes as above Admission/Observation Not indicated. Lab Data MDM Lab Attestation statement: I reviewed the patient's lab results. as above Labs: Lab Results 11/28/23 Range/Units 11:21 Urine Color Yellow Urine Appearance Clear Urine pH 8.0 (5.0-9.0) Ur Specific [place] 1.025 (1.005-1.025) Urine Protein Negative (Neg-Trace) mg/dL Urine Glucose (UA) Negative (Negative) mg/dL Urine Ketones Negative (Negative) mg/dL Urine Blood Negative (Negative) Urine Nitrite Negative (Negative) Ur Leukocyte Esterase Negative (Negative) Independent Interpretation I performed an independent interpretation of an: Plain X-Ray Interpretation: XR lumbar spine without acute fracture, agree with radiologist's interpretation. Radiology Impression Discussion of test interpretation with radiology: I have reviewed the radiologist's reading. Radiologist Impression: EXAMINATION: XR LUMBOSACRAL SPINE CLINICAL INFORMATION: Low back pain radiating down right lower extremity COMPARISON: 09/30/2012 TECHNIQUE: Three views of the lumbosacral spine. FINDINGS: No acute radiographic abnormalities. There are six nonrib-bearing vertebra of the lumbar spine and for the purposes of this report the lowest lumbar vertebra is considered represent L5. The L5 vertebra has a hypertrophied right transverse process. No fracture or subluxation. There are several old relatively small Schmorl's nodes at vertebral endplates. Findings include chronic mild degenerative narrowing of disc space and small anterior vertebral osteophytes at L1-L2 and L2-L3. There is no overt hypertrophic degenerative change at facet joints. Sacrum and sacroiliac joints are unremarkable. XR/XR lumbar spine 2-3V IMPRESSION: * No acute fracture or malalignment of the lumbosacral spine. * There appear to be chronic mild multilevel discovertebral degenerative changes of the lumbar spine. Independent Historian Clinical information obtained from an independent historian. History obtained from or confirmed by: Spouse External Record Review External record reviewed: Inpatient record, Office record, Outpatient record, Prior outpatient labs, Prior outpatient radiology, Primary care record and Outside ED record Prescription Management I considered prescription management with: Pain Medication (Naproxen) and Other (Flexeril, lidocaine patch) Social Determinants Patient?s care significantly limited by Social Determinants of Health including: Other Social Determinant of Health Critical Care Time Critical Care Time Critical Care Time: No Discharge Plan Discharge Clinical Impression: Lumbar radiculopathy Patient Disposition: Still a Patient Instructions: Lumbar Radiculopathy (ED), Back Pain (ED), Lower Back Exercises (ED) Additional Instructions: Your imaging studies today did not show acute fracture. Your urine is negative for infection. Your pain is likely musculoskeletal. Avoid bending, lifting, or twisting. Use ice several times per day for 20 minutes at a time for the next 48 hours and then change to heat. Flexeril is a muscle relaxer. Take this at night as it makes you drowsy. Do not drive, drink alcohol, or operate machinery while taking it. Naproxen is an anti-inflammatory / pain medication. Take with food. Do not take this with Ibuprofen/motrin as this may cause increased risk for GI bleeding. Lidoderm patches are numbing patches. Apply to painful areas. In addition you may take Tylenol at home. Follow up with your primary care provider as needed If your pain worsens, if you develop new numbness, tingling, weakness, loss of bowel or bladder function call 911 or return to the ER immediately for evaluation. Prescriptions: New cyclobenzaprine 5 mg tablet 5 mg PO Q8H Qty: 7 0RF lidocaine [Lidoderm] 5 % adhesive patch,medicated 1 patch topical DAILY Qty: 15 0RF Rx Instructions: leave on most painful area for up to 12 hrs naproxen 500 mg tablet 500 mg PO Q8-12H PRN (Reason: pain (scale score 1-3)) Qty: 20 0RF No Action fluticasone propionate [Flonase Allergy Relief] 50 mcg/actuation spray,suspension 1 spray intranasal DAILY Qty: 9.9 1RF Rx Instructions: administer into each nostril cholecalciferol (vitamin D3) 50 mcg (2,000 unit) capsule 50 mcg PO DAILY 90 Days Qty: 90 3RF lisinopril 2.5 mg tablet 2.5 mg PO DAILY 30 Days Qty: 90 3RF ibuprofen 600 mg tablet 600 mg PO TID PRN (Reason: fever or pain) Qty: 14 0RF acetaminophen 500 mg tablet 500 mg PO Q6H PRN (Reason: fever or pain) Qty: 14 0RF topiramate 25 mg tablet 25 mg PO BEDTIME propranolol 10 mg tablet 10 mg PO DAILY ezetimibe 10 mg tablet 10 mg PO DAILY prednisone 20 mg tablet 40 mg PO DAILY 5 Days Qty: 10 0RF sumatriptan succinate 50 mg tablet 50 mg PO Q2-4H PRN Rx Instructions: do not exceed 4 doses per 24 hrs Referrals: Giovanni Talbert MD [Primary Care Provider] - Print Language: Hungarian
[2023-11-28] MEDS: Lidocaine 4 % Patch ADH..PATCH 1 PATCH TRANSDERMA (11:25)
[2023-11-28] MEDS: Cyclobenzaprine HCl 10 MG TABLET PO (11:25)
[2023-11-28] MEDS: Ketorolac Tromethamine 30 MG/ML VIAL IM (11:26)
[2023-11-28 11:28] LABS: Appearance Urine Clear; Color Urine Yellow; Glucose Urine UA Negative (Negative); Leukocyte Esterase Urine Negative (Negative); Nitrite Urine Negative (Negative); Specific Gravity - Urine 1.025 (1.005-1.025); Urine Blood Negative (Negative); Urine Ketones Negative (Negative); Urine Protein Negative (Neg-Trace)
[2023-11-28 12:27] VITALS: BP 138/88; PULSE 75; RESP 16; TEMP 36.7; O2SAT 100
== END 2023-11-28 12:28 | disposition still patient (30) ==
PROVIDERS: Physician Assistant Medical; Emergency Provider Emergency Medicine Emergency Medical Services; PCP Internal Medicine
DX: M54.16 Radiculopathy, lumbar region (principal); M54.50 Low back pain, unspecified
CPT/HCPCS: 72100; 81003; 96372; 99283; 99284; J1885

== ENCOUNTER 2023-12-03 09:56 | Outpatient (REF) | payer OTHER, SELFPAY ==
[2023-12-03 10:44] LABS: MANUAL DIFF FLAG NO
[2023-12-03 10:48] LABS: Basophils Absolute Auto 0.1 X10*3/uL (0.0-0.2); Basophils Percent Auto 0.7 % (0-2); Eosinophils Absolute Auto 0.2 X10*3/uL (0.0-0.4); Eosinophils Percent Auto 2.3 % (0-4); Hematocrit 48.4 % (42.0-52.0); Hemoglobin 16.7 g/dl (14.0-18.0); Imm Gran Abs Auto 0.01 X10*3/uL (0.00-0.03); Imm Gran Pct Auto 0.1 % (0.0-0.4); Lymphocytes Absolute Auto 1.8 X10*3/uL (1.2-4.9); Lymphocytes Percent Auto 25.8 % (20-40); Mean Corpuscular HGB Conc 34.5 g/dl (31.0-36.0); Mean Corpuscular Hemoglobin 31.5 pg (27.0-33.0); Mean Corpuscular Volume 91.1 fL (80.0-98.0); Mean Platelet Volume 9.4 fL (9.4-12.4); Monocytes Absolute Auto 0.5 X10*3/uL (0.1-1.2); Monocytes Percent Auto 7.4 % (2-11); Neutrophils Absolute Auto 4.4 x10*3/uL (2.0-8.3); Neutrophils Percent Auto 63.7 % (45-73); Platelet Count 188 X10*3/uL (160-400); Red Blood Count 5.31 X10*6/uL (4.60-5.80); Red Cell Distribution Width 11.9 % (11.0-16.0); White Blood Count 6.9 X10*3/uL (4.8-10.8)
[2023-12-03 11:33] LABS: Alanine Aminotransferase 73 U/L (0-40); Albumin Level 4.5 g/dL (3.5-5.0); Alkaline Phosphatase 110 U/L (39-117); Anion Gap 11 (12-20); Aspartate Amino Transferase 46 U/L (5-37); Bilirubin Total 0.7 mg/dL (0.0-1.0); Blood Urea Nitrogen 18 mg/dL (9-16); Calcium 10.1 mg/dL (8.4-10.2); Carbon Dioxide 30 mmol/L (22-29); Chloride 103 mmol/L (96-108); Cholesterol 232 mg/dL (<200); Estimated Glomerular Filt Rate > 60; Glucose Fasting 79 mg/dL (60-99); HDL Cholesterol 75 mg/dL (>40); LDL Cholesterol Calculated 139 mg/dL (<100); Potassium 4.6 mmol/L (3.3-5.1); Sodium 139 mmol/L (135-145); Total Protein 7.8 g/dL (6.5-8.0); Triglycerides 93 mg/dL (<150)
== END 2023-12-03 09:57 | disposition home or self-care (01) ==
LOC: HO.10HDL 09:56
PROVIDERS: Visit Provider Internal Medicine
DX: E78.00 Pure hypercholesterolemia, unspecified (principal); D64.9 Anemia, unspecified
CPT/HCPCS: 36415; 80053; 80061; 85025

== ENCOUNTER 2023-12-04 13:54 | Emergency (ER) | payer OTHER, SELFPAY ==
--- NOTE | ~2023-12-04 | US_ITS ---
EXAMINATION: US SCROTUM CLINICAL INFORMATION: Right-sided testicular pain and swelling.. COMPARISON: Scrotal ultrasound December 24, 2008 TECHNIQUE: A sonogram of the scrotum was performed assessing bray-scale appearance and color Doppler flow. Spectral Doppler analysis of the arterial and venous flow were performed in the testes bilaterally. FINDINGS: RIGHT: Right testicle measures 4.8 x 2.1 x 3.5 cm, volume 18.8 mL. No suspicious focal testicular parenchymal lesions are visualized. Spectral Doppler analysis of the arterial and venous flow is normal in the right testis. Right epididymal head is normal in size. 3 mm cyst in the head of the epididymis. Small right-sided hydrocele. There is no varicocele. Right epididymal Doppler flow is normal. LEFT: Left testicle measures 4.9 x 2.4 x 3.2 cm, volume 20.2 mL. No suspicious focal testicular parenchymal lesions are visualized. 2 mm cyst in left testicle laterally. Spectral Doppler analysis of the arterial and venous flow is normal in the left testis. Left epididymal head is normal in size. 2 mm cyst in the head of the epididymis. Small hydrocele. There is no varicocele. Left epididymal Doppler flow is normal. US/US scrotum IMPRESSION: 1. Normal right and left testicle. 2. Small bilateral hydrocele.
--- NOTE | ~2023-12-04 | US_ITS ---
EXAMINATION: US SCROTUM CLINICAL INFORMATION: Right-sided testicular pain and swelling.. COMPARISON: Scrotal ultrasound December 24, 2008 TECHNIQUE: A sonogram of the scrotum was performed assessing bray-scale appearance and color Doppler flow. Spectral Doppler analysis of the arterial and venous flow were performed in the testes bilaterally. FINDINGS: RIGHT: Right testicle measures 4.8 x 2.1 x 3.5 cm, volume 18.8 mL. No suspicious focal testicular parenchymal lesions are visualized. Spectral Doppler analysis of the arterial and venous flow is normal in the right testis. Right epididymal head is normal in size. 3 mm cyst in the head of the epididymis. Small right-sided hydrocele. There is no varicocele. Right epididymal Doppler flow is normal. LEFT: Left testicle measures 4.9 x 2.4 x 3.2 cm, volume 20.2 mL. No suspicious focal testicular parenchymal lesions are visualized. 2 mm cyst in left testicle laterally. Spectral Doppler analysis of the arterial and venous flow is normal in the left testis. Left epididymal head is normal in size. 2 mm cyst in the head of the epididymis. Small hydrocele. There is no varicocele. Left epididymal Doppler flow is normal. US/US scrotum doppler IMPRESSION: 1. Normal right and left testicle. 2. Small bilateral hydrocele.
[2023-12-04 14:05] VITALS: BP 155/93; PULSE 98; RESP 16; TEMP 37.1; O2SAT 100; BMI 26.5
--- NOTE | 2023-12-04 14:06 | ED_ITS ---
HPI - Male Genitourinary General Chief complaint: Urogenital-Male Stated complaint: Pain genital area Time Seen by Provider: 12/04/23 19:36 Source: patient Mode of arrival: ambulatory Limitations: no limitations History of Present Illness ED Provider: Kang RODRIGUEZ HPI Narrative: This is a 43-year-old male history of hyperlipidemia, headache, obesity, migraine presenting with complaints of right-sided scrotal pain ongoing for the past few days. He reports it is worse when he sits on it or touches it. He feels like it is red, and hard to the touch. He reports he has never had this before. No concerns for STDs. Reports he has been peeing more at night. Denies any lesions lumps, masses. No history of malignancy. No fevers, chills, chest pain, shortness of breath, nausea, vomiting, abdominal pain, headache, vision changes, dizziness and weakness. Related Data Home Medications ?Medication ?Instructions ?Recorded ?Confirmed sumatriptan succinate 50 mg tablet 50 mg PO Q2-4H PRN 01/17/22 11/15/23 topiramate 25 mg tablet 25 mg PO BEDTIME 02/13/22 11/15/23 ezetimibe 10 mg tablet 10 mg PO DAILY 11/15/23 11/15/23 propranolol 10 mg tablet 10 mg PO DAILY 11/15/23 11/15/23 Previous Rx's ?Medication ?Instructions ?Recorded acetaminophen 500 mg tablet 500 mg PO Q6H PRN fever or pain 09/16/21 #14 tabs ibuprofen 600 mg tablet 600 mg PO TID PRN fever or pain 09/16/21 #14 tabs fluticasone propionate 50 1 spray intranasal DAILY #9.9 mL 01/18/22 mcg/actuation nasal spray,suspension (Flonase Allergy Relief) cholecalciferol (vitamin D3) 50 50 mcg PO DAILY 90 days #90 caps 05/11/23 mcg (2,000 unit) capsule prednisone 20 mg tablet 40 mg (2 x 20 mg) PO DAILY 5 days 11/15/23 #10 tabs lisinopril 2.5 mg tablet 2.5 mg PO DAILY 30 days #90 tabs 11/21/23 cyclobenzaprine 5 mg tablet 5 mg PO Q8H #7 tabs 11/28/23 lidocaine 5 % topical patch 1 patch topical DAILY #15 ea 11/28/23 (Lidoderm) naproxen 500 mg tablet 500 mg PO Q8-12H PRN pain (scale 11/28/23 score 1-3) #20 tabs cephalexin 500 mg tablet 500 mg PO Q6H 10 days #40 tabs 12/04/23 naproxen 500 mg tablet 500 mg PO BID #14 tabs 12/04/23 Allergies Allergy/AdvReac Type Severity Reaction Status Date / Time statins AdvReac Mild elevated Uncoded 12/04/23 14:09 liver enzymes Review of Systems Review of Systems: Yes all other systems are reviewed and are negative [facility] Past Medical History Attestation statement: The following information was validated with the patient. Source: old records reviewed and nursing notes reviewed Medical History Vitamin D deficiency Allergic rhinitis Migraine Blurring of visual image of both eyes Obesity (BMI 30-39.9) Elevated LFTs Pure hypercholesterolemia Surgical History No pertinent past surgical history Family History Family History Father Lung cancer Mother Hypertension Hyperlipidemia Asthma Maternal Grandmother No problems noted. Maternal Grandfather CAD (coronary artery disease) Brother In good health Sister In good health Social History Social History Housing: Apartment Alcohol intake: never Patient Tobacco Use Status: Never used Tobacco e-Cigarette/Vaping Use: Never Used Second Hand Smoke Exposure: No Advance Directives: No Advance Directives Information Provided: No service: No Current occupational status: disabled Cognitive needs: No Hearing needs: No Vision needs: No Physical Exam Vital Signs: Vital Signs: Last Vital Signs Temp 99.3 F 12/04/23 19:59 Pulse 88 12/04/23 19:59 Resp 20 12/04/23 19:59 BP 138/95 H 12/04/23 19:59 Pulse Ox 98 12/04/23 19:59 O2 Del Method Room Air 12/04/23 19:59 BMI result Body Mass Index 26.5 vss Appearance: Alert.? Oriented X3.? No acute distress.? Head: Normocephalic, atraumatic, no step-offs or deformities Eyes: Pupils equal, round and reactive to light.? ENT: Pharynx normal.? Neck: Normal inspection.? Neck supple.? CVS: Normal heart rate and rhythm.? Pulses normal.? Respiratory: No respiratory distress.? Breath sounds normal.? Abdomen: Soft and nontender.? Skin: Skin warm and dry.? Normal skin color.? Normal skin turgor.? Extremities: No lower extremity edema.? No calf ttp. 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 Normal lay to the testicles, erythema and induration to the right scrotum inferiorly, no fluctuance., no lumps or masses to scrotum. Normal penile shaft and head. No discharge. Neuro: Oriented X 3.? No motor deficit.? No sensory deficit. CN 2-12 intact Course Course Course Narrative: This is a Rapid Medical Examination (RME) performed by lAejandra Merlos PA-C in triage. Full HPI, ROS, assessment and treatment plan per primary provider in the Main ED. 43 yo male presenting with right testicular pain and pressure along with a new swollen/hardened area. increased urination at night. no lesions or discharge per report. Plan: UA, CT/NG, scrotal U/S Reevaluation(s) Reevaluation #1: UA without infection. Normal gonorrhea and chlamydia test. Version, small bilateral hydroceles. Normal right and left testicle. Will treat for early cellulitis Educated patient on diagnosis and treatment plan, answered all question, patient verbalizes understanding. At this time patient will be discharged home, advised to return with new or worsening symptoms. Educated on worrisome signs and symptoms and when to return. At this time I feel comfortable discharge home. 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 Normal lay to the testicles, erythema and induration to the right scrotum inferiorly, no fluctuance., no lumps or masses to scrotum. Normal penile shaft and head. No discharge. Hx and pe concerning for cellulitis. Will rule out UTI epididymitis, orchitis, gonorrhea and chlamydia. Unlikely torsion. No signs of necrotizing infection or Lauro gangrene Plan- UA, NG/CT, ultrasound Differential Diagnosis Differential Diagnoses: The differential diagnosis associated with the presentation includes Hx and pe concerning for cellulitis. Will rule out UTI epididymitis, orchitis, gonorrhea and chlamydia. Unlikely torsion. No signs of necrotizing infection or Lauro gangrene Admission/Observation Consideration of admission/observation: Escalation of care including admission/observation considered [facility] Lab Data [facility] Lab Attestation statement: I reviewed the patient's lab results. Labs: Lab Results 12/04/23 Range/Units 14:17 Urine Color Yellow Urine Appearance Clear Urine pH 6.0 (5.0-9.0) Ur Specific [place] 1.020 (1.005-1.025) Urine Protein Negative (Neg-Trace) mg/dL Urine Glucose (UA) Negative (Negative) mg/dL Urine Ketones Trace (Negative) mg/dL Urine Blood Negative (Negative) Urine Nitrite Negative (Negative) Ur Leukocyte Esterase Negative (Negative) Chlam trachomat DNA PCR NOT DETECTED (Not Detect.) N.gonorrhoeae DNA (PCR) NOT DETECTED (Not Detect.) Independent Interpretation I performed an independent interpretation of an: Ultrasound ( US/US scrotum doppler IMPRESSION: 1. Normal right and left testicle. 2. Small bilateral hydrocele.) Radiology Impression Discussion of test interpretation with radiology: I have reviewed the radiologist's reading. External Record Review External record reviewed: Inpatient record, Office record, Outpatient record, Prior outpatient labs, Prior outpatient radiology, Primary care record and Outside ED record Prescription Management I considered prescription management with: Antibiotic Chronic Conditions Patient?s care impacted by: Other (HLD, obesity, elvated lfts, ) Discharge Plan Discharge Clinical Impression: Right testicular pain Patient Disposition: Home, Self-Care Instructions: Testicle Pain (ED), Scrotal Pain (ED) Additional Instructions: Take your medications as prescribed. If you were prescribed antibiotics today, it is important that you take your medication to their entirety, do not skip any doses, do not finish them early. Follow-up with your primary care provider this week. Return to the emergency department with new or worsening symptoms. Such as fevers, chills, chest pain, shortness of breath, nausea, vomiting, dizziness, headache, vision changes, lethargy In case of emergency call 911 Follow-up with urology US/US scrotum doppler IMPRESSION: 1. Normal right and left testicle. 2. Small bilateral hydrocele. Prescriptions: New cephalexin 500 mg tablet 500 mg PO Q6H 10 Days Qty: 40 0RF naproxen 500 mg tablet 500 mg PO BID Qty: 14 0RF No Action fluticasone propionate [Flonase Allergy Relief] 50 mcg/actuation spray,suspen damari 1 spray intranasal DAILY Qty: 9.9 1RF Rx Instructions: administer into each nostril cholecalciferol (vitamin D3) 50 mcg (2,000 unit) capsule 50 mcg PO DAILY 90 Days Qty: 90 3RF lisinopril 2.5 mg tablet 2.5 mg PO DAILY 30 Days Qty: 90 3RF ibuprofen 600 mg tablet 600 mg PO TID PRN (Reason: fever or pain) Qty: 14 0RF acetaminophen 500 mg tablet 500 mg PO Q6H PRN (Reason: fever or pain) Qty: 14 0RF cyclobenzaprine 5 mg tablet 5 mg PO Q8H Qty: 7 0RF lidocaine [Lidoderm] 5 % adhesive patch,medicated 1 patch topical DAILY Qty: 15 0RF Rx Instructions: leave on most painful area for up to 12 hrs naproxen 500 mg tablet 500 mg PO Q8-12H PRN (Reason: pain (scale score 1-3)) Qty: 20 0RF topiramate 25 mg tablet 25 mg PO BEDTIME propranolol 10 mg tablet 10 mg PO DAILY ezetimibe 10 mg tablet 10 mg PO DAILY prednisone 20 mg tablet 40 mg PO DAILY 5 Days Qty: 10 0RF sumatriptan succinate 50 mg tablet 50 mg PO Q2-4H PRN Rx Instructions: do not exceed 4 doses per 24 hrs Referrals: [facility] [Provider Group] - 2 days Giovanni Talbert MD [Primary Care Provider] - 2 days Interventions: ED Discharge Assessment Last Done: 12/04/23 19:59 Discharge Date/Time: 12/04/23 20:02 Print Language: [place] Citizen
[2023-12-04 14:33] LABS: Appearance Urine Clear; Color Urine Yellow; Glucose Urine UA Negative (Negative); Leukocyte Esterase Urine Negative (Negative); Nitrite Urine Negative (Negative); Urine Blood Negative (Negative); Urine Ketones Trace mg/dL (Negative); Urine Protein Negative (Neg-Trace)
[2023-12-04 16:22] LABS: CT PCR NOT DETECTED (Not Detect.); NG PCR NOT DETECTED (Not Detect.)
[2023-12-04 18:45] VITALS: BP 138/95; PULSE 88; RESP 20; TEMP 37.4; O2SAT 98
[2023-12-04 19:59] VITALS: BP 138/95; PULSE 88; RESP 20; TEMP 37.4; O2SAT 98
== END 2023-12-04 20:02 | disposition home or self-care (01) ==
PROVIDERS: Physician Assistant; Emergency Provider Emergency Medicine; PCP Internal Medicine
DX: N50.811 Right testicular pain (principal); R10.2 Pelvic and perineal pain; Z79.899 Other long term (current) drug therapy
CPT/HCPCS: 76870; 81003; 87491; 87591; 93975; 99283; 99284

== ENCOUNTER 2023-12-06 09:00 | Outpatient (AMB) | payer OTHER, SELFPAY ==
[2023-12-06 09:03] VITALS: BP 124/82; PULSE 76; O2SAT 99; BMI 26.3
--- NOTE | 2023-12-06 09:03 | A.OFFPC_ITS ---
Vital Signs 12/06/23 09:03 Height 5 ft 9 in Weight 178 lb BMI 26.3 BP 124/82 Blood Pressure Location Lt brachial Position Sitting Pulse 76 Pulse Source Pulse Oximeter Pulse Oximetry (%) 99 Oxygen Delivery Method Room Air Intake Visit Reasons: [facility] 11/27 back pain/ leg pain Developer Analyst: Present Accompanied by: Mother Allergies statins Adverse Reaction (Mild, Uncoded 12/06/23 09:15) elevated liver enzymes Medication List - Last Reconciled 12/06/23 by Giovanni Talbert MD acetaminophen 500 mg PO Q6H PRN cephalexin 500 mg PO Q6H 10 days cholecalciferol (vitamin D3) 50 mcg PO DAILY 90 days cyclobenzaprine 5 mg PO Q8H ezetimibe 10 mg PO DAILY fluticasone propionate 50 mcg/actuation (Flonase Allergy Relief) 1 spray intranasal DAILY ibuprofen 600 mg PO TID PRN lidocaine 5% (Lidoderm) 1 patch topical DAILY lisinopril 2.5 mg PO DAILY 30 days naproxen 500 mg PO BID naproxen 500 mg PO Q8-12H PRN prednisone 40 mg (2 x 20 mg) PO DAILY 5 days propranolol 10 mg PO DAILY sumatriptan succinate 50 mg PO Q2-4H PRN topiramate 25 mg PO BEDTIME Tobacco use date assessed: 08/27/23 Dental Screening Dental Screen Date: 08/27/23 HPI [facility] 11/27 back pain/ leg pain HPI Details Patient comes in today for his [facility] follow up visit AND follow up visit He went to the ER about a week ago c/o increased low back pain for the past m onth or so now Recalls that his back tensed up last month when he was carrying a laundry basket down the stairs and his back has been bothering him since He went to urgent care a couple of weeks later and was prescribed a trial of oral prednisone, which he states did not help X-rays done the ER revealed (+) chronic mild multilevel discovertebral degenerative changes of the lumbar spine but no acute injuries or fractures He was sent home with cyclobenzaprine and oral analgesics - states that his Rx help temporarily but his lower back is still acting up a lot and he has a hard time getting back to his routine exercises and walking due to his low back pain He also went back to the ER a couple of days ago for right testicular pain and swelling Testicular US revealed (+) small bilateral hydroceles; both testicles were otherwise normal He was supposedly going to be started on oral Cephalexin empirically but states that his pharmacy never received the Rx They checked back with the ER and was advised his Rx were sent He still has no Abx to take at this time He denies any headaches or dizziness Denies any chest pains, no SOB No nausea/vomiting, no abdominal pain No change in bowel habits noted He had his follow up labs done a few days ago - to discuss his results [facility] Medical History Vitamin D deficiency Allergic rhinitis Migraine Blurring of visual image of both eyes Obesity (BMI 30-39.9) Elevated LFTs Pure hypercholesterolemia Surgical History No pertinent past surgical history Family History Father Lung cancer Mother Hypertension Hyperlipidemia Asthma Maternal Grandmother No problems noted. Maternal Grandfather CAD (coronary artery disease) Brother In good health Sister In good health Social History Housing: Apartment Alcohol intake: never Patient Tobacco Use Status: Never used Tobacco e-Cigarette/Vaping Use: Never Used Second Hand Smoke Exposure: No service: No Current occupational status: disabled Cognitive needs: No Hearing needs: No Vision needs: No Questionnaire Thrive Questionnaire Date Thrive assessed: 08/27/23 DONA-7 AMB Questionnaire DONA-7 Date DONA - 7 assessed: 08/27/23 Source: Developed by Drs. Gregorio Bridges, Dinae Frankel, Pantera Alan and colleagues, with an educational ayleen from [employer]. Review of Systems Const Denies chills, Denies fatigue, Denies fever(s) and Denies headache(s) ENT Denies dysphagia, Denies dizziness, Denies otalgia, Denies headache(s), Denies neck pain, Denies odynophagia and Denies sore throat Card Denies chest pain, Denies palpitations and Denies dyspnea Resp Denies cough and Denies dyspnea GI Denies abdominal pain, Denies constipation, Denies dysphagia, Denies heartburn, Denies diarrhea, Denies nausea, Denies odynophagia and Denies vomiting Denies difficulty urinating, Denies dysuria, Denies nocturia, Denies scrotal swelling, Denies testicular mass, Reports testicular pain (right), Denies urin melissa frequency and Denies urinary urgency Musc Reports back pain (recurrent, over the lower back; radiates down right leg at times) and Denies neck pain Skin/Breast Denies rash Neuro Denies dizziness and Denies headache(s) Endo Denies fatigue and Denies palpitations Physical exam (Primary Care) Vital Signs: Last Vital Signs Pulse 76 12/06/23 09:03 BP 124/82 12/06/23 09:03 Pulse Ox 99 12/06/23 09:03 Oxygen Delivery Method Room Air 12/06/23 09:03 BMI result Body Mass Index 26.3 Tobacco/Smoking Status: Tobacco use Status Tobacco use date assessed 08/27/23 12/06/23 09:04 Patient Tobacco Use Status Never used Tobacco 12/06/23 09:04 e-Cigarette/Vaping Use Never Used 12/06/23 09:04 Thrive Assessment: Date of Thrive Assessment Date Thrive assessed 08/27/23 12/06/23 09:04 Const General: no acute distress and alert HENMT Ears: TM's normal bilaterally and EAC's normal Throat: Yes posterior oropharynx normal and Yes tonsils normal (no TP congestion noted) Neck Neck: Yes no lymphadenopathy and Yes supple Thyroid: Thyroid normal Resp Auscultation: clear to auscultation bilaterally, no rales and no wheezes Cardio Rate: regular rate Rhythm: regular rhythm Heart sounds: no murmurs GI Palpation (GI): Soft to palpation and nontender Auscultation: normal bowel sounds General: Yes no CVA tenderness Back/Spine/Pelvis Back: no CVA tenderness Thoracic/Lumbar Spine: paraspinal muscle tenderness bilaterally in the upper lumbar, in the mid lumbar and in the lower lumbar and lumbar spinal tenderness Sacroiliac joints: bilaterally nontender Skin Rashes: no rashes Extrem General: Yes no clubbing, cyanosis or edema Results Reviewed Results Reviewed: Laboratory Tests 04/20/23 08/21/23 12/03/23 10:40 09:40 10:00 WBC 7.1 6.9 Hgb 16.2 16.7 Hct 46.0 48.4 Plt Count 219 188 Sodium 136 139 Potassium 3.9 4.6 Creatinine 0.87 0.88 Estimated GFR > 60 > 60 Fasting Glucose 79 79 Calcium 9.3 10.1 D AST 34 46 H ALT 49 H 73 H Alkaline Phosphatase 129 H Triglycerides 105 93 Cholesterol 206 H 232 H LDL Cholesterol, Calc 129 H 139 H HDL Cholesterol 56 75 25-OH Vitamin D Total 40.4 TSH 0.71 Ur Specific [place]man Urine Protein Urine Glucose (UA) Urine Blood Urine Nitrite Ur Leukocyte Esterase 12/04/23 14:17 WBC Hgb Hct Plt Count Sodium Potassium Creatinine Estimated GFR Fasting Glucose Calcium AST ALT Alkaline Phosphatase Triglycerides Cholesterol LDL Cholesterol, Calc HDL Cholesterol 25-OH Vitamin D Total TSH Ur Specific Woodman 1.020 Urine Protein Negative Urine Glucose (UA) Negative Urine Blood Negative Urine Nitrite Negative Ur Leukocyte Esterase Negative Assessment and Plan Assessment & Plan (1) Acute lumbar myofascial strain: Code(s): S39.012A - Strain of muscle, fascia and tendon of lower back, initial encounter Qualifiers: Encounter type: sequela Qualified Code(s): S39.012S - Strain of muscle, fascia and tendon of lower back, sequela Plan: Patient current low back pain started over a month ago when he was carrying a laundry basket down some stairs - advised that he likely strained his lower back muscles then Lumbar spine x-rays done at the ER about a week ago revealed (+) chronic mild multilevel discovertebral degenerative changes of the lumbar spine but no acute injuries or fractures Continue Cyclobenzaprine 5 mg TID PRN and Naproxen 500 mg BID PRN for pain Advised that he can continue applying warm compress over his lower back PRN for symptomatic relief Will send him to physical therapy for further evaluation and management (2) Right testicular pain: Code(s): N50.811 - Right testicular pain Plan: Advised patient that his current testicular pain is likely due to hydroceles, which sometimes can cause a lot of pain when they get irritated or inflamed Testicular US done at the ER a couple of days ago revealed (+) small bilateral hydroceles; both testicles were otherwise normal He was supposedly going to be started on empirix Abx Tx with oral Cephalexin but patient states that his pharmacy supposedly never received his Rx - will resend Rx for Cephalexin 500 mg Q 6 hours x 10 days (3) Pure hypercholesterolemia: Code(s): E78.00 - Pure hypercholesterolemia, unspecified Plan: Results of his labs done a few days ago reviewed and discussed with patient - he is advises that his total and LDL cholesterol have again increased from previous He was taken off Atorvastatin previously due to vague symptoms that include weakness, dizziness, nausea and myalgia as well as elevated LFTs - his LFTs are still elevated on his most recent labs and have increased from previous He was also tried more recently on Ezetimibe 10 mg QD recently but patient self- discontinued the medication due to complaint of weird smells in his nose repeatedly when he was taking the Rx Reinforced low cholesterol diet for now Will recheck his labs and fasting lipids in 4 months for follow up - advised that we can try starting him on a low dose of a different cholesterol Rx when his LFTs are back to normal and if he really cannot tolerate any of the available statins, then we will need to consider starting him on some of the newer PCSK9 inhibitors that are only available by injections, which patient is still very hesitant to do (4) Elevated LFTs: Code(s): R79.89 - Other specified abnormal findings of blood chemistry Plan: Patient's LFTs remain elevated on his recent labs and have increased further from his previous numbers - is likely due to a combination of his weight and cholesterol level, which have increased lately Abdominal US done back in July 2022 came out significant only for findings of hepatis steatosis; hepatitis profile done a few months ago all came back negative Will recheck his LFTs in 4 months for follow up (5) Elevated blood pressure reading: Code(s): R03.0 - Elevated blood-pressure reading, without diagnosis of hypertension Plan: His BP is normal today at 124/82 mm Reinforced low sodium diet Patient is reminded to continue monitoring his BP regularly - goal is systolic BP of 120 mm or less (6) Migraine: Code(s): G43.909 - Migraine, unspecified, not intractable, without status migrainosus Qualifiers: Migraine type: unspecified Status migrainosus presence: without status migrainosus Intractability: not intractable Qualified Code(s): G43.909 - Migraine, unspecified, not intractable, without status migrainosus Plan: States that his headaches have been well-controlled on Topiramate 25 mg QHS - Rx was started by neurology (Dr. Lucas) Reinforced avoidance of migraine triggers Continue Sumatriptan 50 mg PRN Follow up with neurology as scheduled (7) Allergic rhinitis: Code(s): J30.9 - Allergic rhinitis, unspecified Qualifiers: Allergic rhinitis trigger: unspecified Allergic rhinitis seasonality: unspecified Qualified Code(s): J30.9 - Allergic rhinitis, unspecified Plan: Continue Fluticasone 50 mcg nasal spray QD PRN (8) Vitamin D deficiency: Code(s): E55.9 - Vitamin D deficiency, unspecified Plan: Continue Vitamin D3 2000 units QD (9) Overweight (BMI 25.0-29.9): Code(s): E66.3 - Overweight Plan: Reinforced diet/exercise as tolerated/lose weight Plan Follow up in 4 months Orders: Orders Complete Blood Count Auto Diff 4 Months D64.9 - Anemia, unspecified Lipid Panel 4 Months E78.00 - Pure hypercholesterolemia, unspecified UA CC w/rflx Micro + Cult 4 Months R30.0 - Dysuria Vitamin D 25-OH Total 4 Months E55.9 - Vitamin D deficiency, unspecified PT Evaluation and Treatment Today S39.012A - Strain of muscle, fascia and tendon of lower back, initial encounter Comprehensive [place]. Panel Fast 4 Months E78.00 - Pure hypercholesterolemia, unspecified TSH reflex Free T4 4 Months E78.00 - Pure hypercholesterolemia, unspecified Medications: Changed From cyclobenzaprine 5 mg PO Q8H 7 tabs 0RF To cyclobenzaprine 5 mg PO Q8H 10 days PRN 30 tabs 0RF muscle spasm/back pain Refilled cephalexin 500 mg PO Q6H 10 days 40 tabs 0RF Coding Level of Care Code Est Pt Level 4 (93264) Diagnoses Acute myofascial strain of lumbar region, sequela S39.012S Encounter type: sequela Right testicular pain N50.811 Pure hypercholesterolemia E78.00 Elevated LFTs R79.89 Elevated blood pressure reading R03.0 Migraine without status migrainosus, not intractable, unspecified migraine type G43.909 Migraine type: unspecified Status migrainosus presence: without status migrainosus Intractability: not intractable Allergic rhinitis, unspecified seasonality, unspecified trigger J30.9 Allergic rhinitis trigger: unspecified Allergic rhinitis seasonality: unspecified Vitamin D deficiency E55.9 Overweight (BMI 25.0-29.9) E66.3
== END 2023-12-06 09:31 | disposition home or self-care (01) ==
PROVIDERS: PCP Internal Medicine; Visit Provider Internal Medicine
DX: S39.012S Strain of muscle, fascia and tendon of lower back, sequela (principal); N50.811 Right testicular pain; E78.00 Pure hypercholesterolemia, unspecified; R79.89 Other specified abnormal findings of blood chemistry; R03.0 Elevated blood-pressure reading, without diagnosis of hypertension; G43.909 Migraine, unspecified, not intractable, without status migrainosus; J30.9 Allergic rhinitis, unspecified; E55.9 Vitamin D deficiency, unspecified; E66.3 Overweight
CPT/HCPCS: 99214

== ENCOUNTER 2024-02-11 13:00 | Outpatient (RCR) | payer OTHER, SELFPAY ==
--- NOTE | 2024-03-31 08:55 | MHC.PT.DC ---
[facility] [place] Office [place] Office [place] Office [address] Ronny Cruz [address] [phone] F: [phone] F: [phone] F: [phone] F: [phone] Physical Therapy Discharge Report Diagnosis: LOW BACK PAIN (KP) Date of Surgery: NA Date of Evaluation: 01/23/24 Date of Discharge: Treatments to Date: 5 Cancellations to Date: 0 No Shows to Date: 0 Discharge Status: Patient Elected to Stop Discharge Summary: Stanton had been progressing with therapy but no showed for his last scheduled visit and attempts to reach by phone were unsuccessful. Current status is unknown. Electronically signed by: Elsa Hamm PT DPT Please sign and return to therapist. Thank you for your referral.
== END 2024-03-31 08:55 | disposition home or self-care (01) ==
LOC: HO.PT 13:00
PROVIDERS: PCP Internal Medicine; Visit Provider Internal Medicine
DX: S39.012D Strain of muscle, fascia and tendon of lower back, subsequent encounter (principal)
CPT/HCPCS: 97110; 97161; 97530; 97535

== ENCOUNTER 2024-04-01 09:17 | Outpatient (REF) | payer OTHER, SELFPAY ==
[2024-04-01 10:46] LABS: Appearance Urine Clear; Color Urine Yellow; Glucose Urine UA Negative (Negative); Leukocyte Esterase Urine Negative (Negative); Nitrite Urine Negative (Negative); Specific Gravity - Urine >= 1.030 (1.005-1.025); Urine Blood Negative (Negative); Urine Ketones Trace mg/dL (Negative); Urine Protein Negative (Neg-Trace)
[2024-04-01 10:49] LABS: MANUAL DIFF FLAG NO
[2024-04-01 10:55] LABS: Basophils Absolute Auto 0.1 X10*3/uL (0.0-0.2); Basophils Percent Auto 0.8 % (0-2); Eosinophils Absolute Auto 0.1 X10*3/uL (0.0-0.4); Eosinophils Percent Auto 2.3 % (0-4); Hematocrit 44.4 % (42.0-52.0); Hemoglobin 15.8 g/dl (14.0-18.0); Imm Gran Abs Auto 0.01 X10*3/uL (0.00-0.03); Imm Gran Pct Auto 0.2 % (0.0-0.4); Lymphocytes Absolute Auto 1.8 X10*3/uL (1.2-4.9); Lymphocytes Percent Auto 29.7 % (20-40); Mean Corpuscular HGB Conc 35.6 g/dl (31.0-36.0); Mean Corpuscular Hemoglobin 31.5 pg (27.0-33.0); Mean Corpuscular Volume 88.6 fL (80.0-98.0); Mean Platelet Volume 9.2 fL (9.4-12.4); Monocytes Absolute Auto 0.5 X10*3/uL (0.1-1.2); Monocytes Percent Auto 8.4 % (2-11); Neutrophils Absolute Auto 3.6 x10*3/uL (2.0-8.3); Neutrophils Percent Auto 58.6 % (45-73); Platelet Count 231 X10*3/uL (160-400); Red Blood Count 5.01 X10*6/uL (4.60-5.80); Red Cell Distribution Width 12.1 % (11.0-16.0); White Blood Count 6.2 X10*3/uL (4.8-10.8)
[2024-04-01 11:37] LABS: Alanine Aminotransferase 40 U/L (0-40); Albumin Level 4.2 g/dL (3.5-5.0); Alkaline Phosphatase 99 U/L (39-117); Anion Gap 11 (12-20); Aspartate Amino Transferase 40 U/L (5-37); Bilirubin Total 0.6 mg/dL (0.0-1.0); Blood Urea Nitrogen 20 mg/dL (9-16); Calcium 9.4 mg/dL (8.4-10.2); Carbon Dioxide 27 mmol/L (22-29); Chloride 103 mmol/L (96-108); Cholesterol 208 mg/dL (<200); Estimated Glomerular Filt Rate > 60; Glucose Fasting 88 mg/dL (60-99); HDL Cholesterol 52 mg/dL (>40); LDL Cholesterol Calculated 135 mg/dL (<100); Potassium 3.9 mmol/L (3.3-5.1); Sodium 137 mmol/L (135-145); TSH reflex Free T4 0.83 uIU/mL (0.32-4.0); Total Protein 7.3 g/dL (6.5-8.0); Triglycerides 108 mg/dL (<150); Vitamin D 25-OH Total 45.2 ng/mL (>30)
== END 2024-04-01 09:18 | disposition home or self-care (01) ==
LOC: HO.10HDL 09:17
PROVIDERS: Visit Provider Internal Medicine
DX: E78.00 Pure hypercholesterolemia, unspecified (principal); E55.9 Vitamin D deficiency, unspecified; R30.0 Dysuria; D64.9 Anemia, unspecified
CPT/HCPCS: 36415; 80053; 80061; 81003; 82306; 84443; 85025

== ENCOUNTER 2024-04-09 12:41 | Outpatient (AMB) | payer OTHER, SELFPAY ==
[2024-04-09 12:42] VITALS: BP 130/84; PULSE 83; O2SAT 97; BMI 26.3
--- NOTE | 2024-04-09 12:42 | MHC.PC.OV ---
Vital Signs 04/09/24 12:42 Height 5 ft 9 in Weight 178 lb 2 oz BMI 26.3 BP 130/84 Blood Pressure Location Lt brachial Position Sitting Pulse 83 Pulse Source Pulse Oximeter Pulse Oximetry (%) 97 Oxygen Delivery Method Room Air Intake Visit Reasons: 4 Month F/U Program Architect Required: No Accompanied by: Self / Same As Patient Allergies statins Adverse Reaction (Mild, Uncoded 04/13/24 18:42) elevated liver enzymes Medication List - Last Reconciled 04/09/24 by Giovanni Talbert MD acetaminophen 500 mg PO Q6H PRN cholecalciferol (vitamin D3) 50 mcg PO DAILY 90 days cyclobenzaprine 5 mg PO Q8H PRN 10 days fluticasone propionate 50 mcg/actuation (Flonase Allergy Relief) 1 spray intranasal DAILY ibuprofen 600 mg PO TID PRN lidocaine 5% (Lidoderm) 1 patch topical DAILY naproxen 500 mg PO BID propranolol 10 mg PO DAILY sumatriptan succinate 50 mg PO Q2-4H PRN topiramate 25 mg PO BEDTIME Tobacco use date assessed: 04/09/24 Dental Screening Dental Screen Date: 04/09/24 Did you have a dental visit in the last 12 months?: Yes Did you have a dental problem in the last 6 months where you did not have access to dental care?: No Was dental information given to patient?: Patient has dentist HPI 4 Month F/U HPI Details Patient comes in today for his follow up visit States that he stopped taking his Lisinopril about 1 month ago, as he feels that his blood pressure was getting too low and he was starting to experience increased fatigue and on and off dizziness/lightheadedness recently His systolic blood pressure reading was reportedly at 111 mm at one time when he checked it during one of his dizzy spells Patient states that he felt much better after discontinuing his Rx and has not had any recurrence of his symptoms since He denies any headaches Denies any chest pains, no increased shortness of breath No nausea/vomiting, no abdominal pain No change in bowel habits noted Needs his Vitamin D Rx refilled He had his follow-up labs done last week - to discuss his results He would also like to get his flu shot today [facility] Medical History (Updated 04/13/24 @ 18:57 by Giovanni Talbert MD) Essential hypertension Lumbar degenerative disc disease Vitamin D deficiency Allergic rhinitis Migraine Blurring of visual image of both eyes Obesity (BMI 30-39.9) Elevated LFTs Pure hypercholesterolemia Surgical History No pertinent past surgical history Family History Father Lung cancer Mother Hypertension Hyperlipidemia Asthma Maternal Grandmother No problems noted. Maternal Grandfather CAD (coronary artery disease) Brother In good health Sister In good health Social History Housing: Apartment Alcohol intake: never Patient Tobacco Use Status: Never used Tobacco e-Cigarette/Vaping Use: Never Used Second Hand Smoke Exposure: No service: No Current occupational status: disabled Cognitive needs: No Hearing needs: No Vision needs: No Questionnaire PHQ-9 Over the last 2 weeks, how often have you been bothered by any of the following problems? 1. Little interest or pleasure in doing things: not at all 2. Feeling down, depressed, or hopeless: not at all 3. Trouble falling or staying asleep, or sleeping too much: not at all 4. Feeling tired or having little energy: not at all 5. Poor appetite or overeating: not at all 6. Feeling bad about yourself - or that you are a failure or have let yourself or your family down: not at all 7. Trouble concentrating on things, such as reading the newspaper or watching television: not at all 8. Moving or speaking so slowly that other people could have noticed. Or the opposite - being so fidgety or restless that you have been moving around a lot more than usual: not at all 9. Thoughts that you would be better off or of hurting yourself in some way: not at all Total score: 0 Depression Screening Interpretation: Negative Depression Screening Done: Yes 09480 - PHQ-9 Billing: Yes Source: Developed by Drs. Gregorio Bridges, Diane Frankel, Pantera Alan and colleagues, with an educational ayleen from [employer]. Thrive Questionnaire Date Thrive assessed: 04/09/24 I am a: Patient What is your living situation today?: I have a steady place to live Within the past 12 months, did the food you bought not last and you didn't have the money to get more?: Never true Within the past 12 months, did you worry whether your food would run out before you got money to buy more?: Never true Do you have trouble paying for medicines?: No Do you have trouble getting transportation to medical appointments?: No Do you have trouble paying your heating and electricity bill?: No Do you have trouble taking care of your child, family member or friend?: No Do you have trouble with day-to-day activities such as bathing, preparing meals, shopping, managing finances, etc.?: No Are you currently unemployed and looking for a job?: No Are you interested in more education?: No Please select the resources that you would like help with: None Currently or been in a relationship where the following occur: No concerns reported THRIVE Score: 0 AUDIT C Alcohol Use Questionnaire (AUDIT-C) 1. How often do you have a drink containing alcohol?: Never 3. How often do you have six or more drinks on one occasion?: Never Total Score: 0 Score Reviewed/Action Taken: Yes DONA-7 AMB Questionnaire DONA-7 Date DONA - 7 assessed: 04/09/24 Feeling nervous, anxious, or on edge: 0 = Not at all Not being able to stop or control worryin = Not at all Worrying too much about different things: 0 = Not at all Trouble relaxin = Not at all Being so restless that it is hard to sit still: 0 = Not at all Becoming easily annoyed or irritable: 0 = Not at all Feeling afraid as if something awful might happen: 0 = Not at all Total DONA-7 score (0-4 normal; 5-9 mild; 10-14 moderate; 15-21 severe): 0 Source: Developed by Drs. Gregorio Bridges, Diane Frankel, Pantera Alan and colleagues, with an educational ayleen from [employer]. Review of Systems Const Denies chills, Denies fatigue, Denies fever(s) and Denies headache(s) ENT Denies dysphagia, Denies dizziness, Denies otalgia, Denies headache(s), Denies neck pain, Denies odynophagia and Denies sore throat Card Denies chest pain, Denies palpitations and Denies dyspnea Resp Denies cough and Denies dyspnea GI Denies abdominal pain, Denies constipation, Denies dysphagia, Denies heartburn, Denies diarrhea, Denies nausea, Denies odynophagia and Denies vomiting Denies difficulty urinating, Denies dysuria, Denies urinary frequency and Denies urinary urgency Musc Reports back pain (recurrent, over the lower back; radiates down right leg at times) and Denies neck pain Skin/Breast Denies rash Neuro Denies dizziness and Denies headache(s) Endo Denies fatigue and Denies palpitations Physical exam (Primary Care) Vital Signs: Last Vital Signs Pulse 83 04/09/24 12:42 BP 130/84 04/09/24 12:42 Pulse Ox 97 04/09/24 12:42 Oxygen Delivery Method Room Air 04/09/24 12:42 BMI result Body Mass Index 26.3 Tobacco/Smoking Status: Tobacco use Status Tobacco use date assessed 04/09/24 04/09/24 12:48 Patient Tobacco Use Status Never used Tobacco 04/09/24 12:48 e-Cigarette/Vaping Use Never Used 04/09/24 12:48 PHQ-9: PHQ-9 Score PHQ-9: Total score 0 04/09/24 13:09 Depression Screening Interpretation: Negative Thrive Assessment: Date of Thrive Assessment Date Thrive assessed 04/09/24 04/09/24 12:48 Currently or been in a relationship where the following occur: No concerns reported Const General: no acute distress and alert HENMT Ears: TM's normal bilaterally and EAC's normal Throat: Yes posterior oropharynx normal and Yes tonsils normal (no TP congestion noted) Neck Neck: Yes no lymphadenopathy and Yes supple Thyroid: Thyroid normal Resp Auscultation: clear to auscultation bilaterally, no rales and no wheezes Cardio Rate: regular rate Rhythm: regular rhythm Heart sounds: no murmurs GI Palpation (GI): Soft to palpation and nontender Auscultation: normal bowel sounds General: Yes no CVA tenderness Back/Spine/Pelvis Back: no CVA tenderness Thoracic/Lumbar Spine: paraspinal muscle tenderness bilaterally in the upper lumbar, in the mid lumbar and in the lower lumbar and lumbar spinal tenderness Sacroiliac joints: bilaterally nontender Skin Rashes: no rashes Extrem General: Yes no clubbing, cyanosis or edema Office Procedures Flu Questionnaire Does the patient have a severe egg allergy?: No Does the patient have severe life threatening allergies?: No Does the patient have a fever or illness today?: No Has the patient ever had Guillain-Celestine Syndrome?: No Has the patient ever had any past reaction to a flu shot?: No Immunizations Fluarix Triv 1310-1499 (PF) 45 mcg (15 mcg x 3)/0.5 mL IM syringe Performing Provider: Giovanni Talbert MD [facility] Administered by: ESTELA Palmer on 04/09/24 13:09 Dose Route Admin Location Dispensed Lot Number Expiration Date [facility] Research Geneticist 0.5 mL IM Left Deltoid 0.5 mL [id number] 11/03/24 [id number] [employer] VIS Given Date VIS Provided VIS Publication Date 04/09/24 Single Vaccine 20 Eligibility Eligibility Date Funding Source Not [facility] Eligible 04/09/24 Private Results Reviewed Results Reviewed: Laboratory Tests 04/01/24 09:20 WBC 6.2 Hgb 15.8 Hct 44.4 Plt Count 231 Sodium 137 Potassium 3.9 Creatinine 0.87 Estimated GFR > 60 Fasting Glucose 88 Calcium 9.4 D AST 40 H ALT 40 Triglycerides 108 Cholesterol 208 H LDL Cholesterol, Calc 135 H HDL Cholesterol 52 25-OH Vitamin D Total 45.2 TSH 0.83 Ur Specific [place] >= 1.030 H Urine Protein Negative Urine Glucose (UA) Negative Urine Blood Negative Urine Nitrite Negative Ur Leukocyte Esterase Negative Coding Level of Care Code Est Pt Level 4 (97217) Complex EM visit Add On G2211 Diagnoses Pure hypercholesterolemia E78.00 Essential hypertension I10 Elevated LFTs R79.89 Degeneration of intervertebral disc of lumbar region with discogenic back pain M51.360 Disc-related pain type: discogenic back pain only Hydrocele, right N43.3 Migraine without status migrainosus, not intractable, unspecified migraine type G43.909 Migraine type: unspecified Status migrainosus presence: without status migrainosus Intractability: not intractable Allergic rhinitis, unspecified seasonality, unspecified trigger J30.9 Allergic rhinitis trigger: unspecified Allergic rhinitis seasonality: unspecified Vitamin D deficiency E55.9 Overweight (BMI 25.0-29.9) E66.3 Additional Codes PHQ-9 - 19228 - PHQ-9 Billing: Yes ([id number]) Assessment & Plan Assessment & Plan (1) Pure hypercholesterolemia: Code(s): E78.00 - Pure hypercholesterolemia, unspecified Category: Medical Plan: Results of his labs done last week reviewed and discussed with patient - have advised patient that his cholesterol levels are still elevated, with a total cholesterol of 208 mg/dL and LDL cholesterol of 135 mg/dL but these have improved slightly from previous Reinforced low-cholesterol diet He was taken off Atorvastatin previously due to vague symptoms that included generalized weakness, dizziness, nausea and myalgia as well as elevated LFTs - his LFTs have improved from previous but his serum AST is still slightly elevated on his recent labs He was also tried more recently on Ezetimibe 10 mg QD recently but patient self-discontinued the medication due to complaint of weird smells in his nose repeatedly when he was taking the Rx Patient wishes to continue with diet modification for now and not take any Rx Will have him recheck his labs and fasting lipids in 4 months for follow up (2) Essential hypertension: Code(s): I10 - Essential (primary) hypertension Category: Medical Plan: He was recently started on Lisinopril at 2.5 mg QD but patient stopped taking his Rx about a month ago when he started feeling dizzy and lightheaded and noted that his systolic blood pressure was around 111 mm at the time, which is the lowest he has seen it and he feels that his blood pressure is too low at the time, considering his symptoms States that he has not had any recurrence of his symptoms since he stopped taking the medication and prefers to try controlling it with dietary restrictions for now Reinforced low-sodium diet Patient is reminded to continue monitoring his blood pressure regularly - goal is systolic BP of at least 120-130 mm or less (3) Elevated LFTs: Code(s): R79.89 - Other specified abnormal findings of blood chemistry Category: Medical Plan: Abdominal US done back in July 2022 came out significant only for findings of hepatis steatosis; hepatitis profile done a few months prior all came back negative His LFTs have improved from previous but his serum AST is still slightly elevated on his recent labs Will continue to monitor his LFTs regularly (4) Lumbar degenerative disc disease: Code(s): M51.369 - Other intervertebral disc degeneration, lumbar region without mention of lumbar back pain or lower extremity pain Category: Medical Qualifiers: Disc-related pain type: discogenic back pain only Qualified Code(s): M51.360 - Other intervertebral disc degeneration, lumbar region with discogenic back pain only Plan: Lumbar spine x-rays done at the ER a few months ago revealed (+) chronic mild multilevel discovertebral degenerative changes of the lumbar spine but no acute injuries or fractures States that his previous low back pain has improved a lot with physical therapy Reinforced activity and weight lifting restrictions Continue Cyclobenzaprine 5 mg TID PRN and Naproxen 500 mg BID PRN for pain (5) Hydrocele, right: Code(s): N43.3 - Hydrocele, unspecified Category: Medical Plan: Testicular US done at the ER a few months ago revealed (+) small bilateral hydroceles; both testicles were otherwise normal Patient states that his symptoms have improved a lot with Abx Tx with Cephalexin a few months ago Follow up with urology as scheduled (6) Migraine: Code(s): G43.909 - Migraine, unspecified, not intractable, without status migrainosus Category: Medical Qualifiers: Migraine type: unspecified Status migrainosus presence: without status migrainosus Intractability: not intractable Qualified Code(s): G43.909 - Migraine, unspecified, not intractable, without status migrainosus Plan: Patient states that his headaches have been well-controlled on Topiramate 25 mg QHS - Rx was started by neurology (Dr. Lucas) Reinforced avoidance of migraine triggers Continue Sumatriptan 50 mg PRN Follow up with neurology as scheduled (7) Allergic rhinitis: Code(s): J30.9 - Allergic rhinitis, unspecified Category: Medical Qualifiers: Allergic rhinitis trigger: unspecified Allergic rhinitis seasonality: unspecified Qualified Code(s): J30.9 - Allergic rhinitis, unspecified Plan: Continue Fluticasone 50 mcg nasal spray QD PRN (8) Vitamin D deficiency: Code(s): E55.9 - Vitamin D deficiency, unspecified Category: Medical Plan: Continue Vitamin D3 2000 units QD (9) Overweight (BMI 25.0-29.9): Code(s): E66.3 - Overweight Category: Medical Plan: Reinforced diet/exercise as tolerated/lose weight Plan As requested, flu vaccine given to patient today Follow up in 4 months Orders: Orders UA CC w/rflx Micro + Cult 4 Months R30.0 - Dysuria Complete Blood Count Auto Diff 4 Months D64.9 - Anemia, unspecified Comprehensive [place]. Panel Fast 4 Months E78.00 - Pure hypercholesterolemia, unspecified Lipid Panel 4 Months E78.00 - Pure hypercholesterolemia, unspecified Hemoglobin A1c 4 Months R73.9 - Hyperglycemia, unspecified TSH reflex Free T4 4 Months E78.00 - Pure hypercholesterolemia, unspecified Influenza [id number] Immunization 04/09/24 Z23 - Encounter for immunization Medications: Refilled cholecalciferol (vitamin D3) 50 mcg PO DAILY 90 days 90 caps 3RF E55.9 - Vitamin D deficiency, unspecified
== END 2024-04-09 13:10 | disposition home or self-care (01) ==
PROVIDERS: PCP Internal Medicine; Visit Provider Internal Medicine
DX: E78.00 Pure hypercholesterolemia, unspecified (principal); I10 Essential (primary) hypertension; R79.89 Other specified abnormal findings of blood chemistry; M51.360 Other intervertebral disc degeneration, lumbar region with discogenic back pain only; N43.3 Hydrocele, unspecified; G43.909 Migraine, unspecified, not intractable, without status migrainosus; J30.9 Allergic rhinitis, unspecified; E55.9 Vitamin D deficiency, unspecified; E66.3 Overweight

== ENCOUNTER → 2024-04-09 12:41 | Outpatient (BNVA) | payer OTHER, SELFPAY | PROVIDERS: PCP Internal Medicine; Visit Provider Internal Medicine | DX: Z23 Encounter for immunization (principal); E78.00 Pure hypercholesterolemia, unspecified; I10 Essential (primary) hypertension; R79.89 Other specified abnormal findings of blood chemistry; M51.360 Other intervertebral disc degeneration, lumbar region with discogenic back pain only; G43.909 Migraine, unspecified, not intractable, without status migrainosus; J30.9 Allergic rhinitis, unspecified; N43.3 Hydrocele, unspecified | CPT/HCPCS: 90471; 90656; 96127; 99212 ==

== ENCOUNTER 2024-08-04 10:24 | Outpatient (REF) | payer OTHER, SELFPAY ==
[2024-08-04 11:02] LABS: MANUAL DIFF FLAG NO
[2024-08-04 11:15] LABS: Basophils Absolute Auto 0.1 X10*3/uL (0.0-0.2); Basophils Percent Auto 0.7 % (0-2); Eosinophils Absolute Auto 0.3 X10*3/uL (0.0-0.4); Eosinophils Percent Auto 3.6 % (0-4); Hematocrit 46.2 % (42.0-52.0); Hemoglobin 16.1 g/dl (14.0-18.0); Imm Gran Abs Auto 0.01 X10*3/uL (0.00-0.03); Imm Gran Pct Auto 0.1 % (0.0-0.4); Lymphocytes Absolute Auto 2.1 X10*3/uL (1.2-4.9); Mean Corpuscular HGB Conc 34.8 g/dl (31.0-36.0); Mean Corpuscular Hemoglobin 31.5 pg (27.0-33.0); Mean Corpuscular Volume 90.4 fL (80.0-98.0); Mean Platelet Volume 9.2 fL (9.4-12.4); Monocytes Absolute Auto 0.5 X10*3/uL (0.1-1.2); Monocytes Percent Auto 7.4 % (2-11); Neutrophils Absolute Auto 4.3 x10*3/uL (2.0-8.3); Neutrophils Percent Auto 59.2 % (45-73); Platelet Count 224 X10*3/uL (160-400); Red Blood Count 5.11 X10*6/uL (4.60-5.80); Red Cell Distribution Width 12.3 % (11.0-16.0); White Blood Count 7.2 X10*3/uL (4.8-10.8)
[2024-08-04 11:29] LABS: Appearance Urine Clear; Color Urine Yellow; Glucose Urine UA Negative (Negative); Leukocyte Esterase Urine Negative (Negative); Nitrite Urine Negative (Negative); Specific Gravity - Urine 1.025 (1.005-1.025); Urine Blood Negative (Negative); Urine Ketones Negative (Negative); Urine Protein Negative (Neg-Trace)
[2024-08-04 11:40] LABS: Alanine Aminotransferase 42 U/L (0-40); Albumin Level 4.1 g/dL (3.5-5.0); Alkaline Phosphatase 105 U/L (39-117); Anion Gap 9 (12-20); Aspartate Amino Transferase 34 U/L (5-37); Bilirubin Total 0.6 mg/dL (0.0-1.0); Blood Urea Nitrogen 21 mg/dL (9-16); Calcium 9.3 mg/dL (8.4-10.2); Carbon Dioxide 30 mmol/L (22-29); Chloride 104 mmol/L (96-108); Cholesterol 224 mg/dL (<200); Estimated Glomerular Filt Rate > 60; Glucose Fasting 84 mg/dL (60-99); HDL Cholesterol 64 mg/dL (>40); LDL Cholesterol Calculated 138 mg/dL (<100); Potassium 4.1 mmol/L (3.3-5.1); Sodium 139 mmol/L (135-145); Total Protein 7.4 g/dL (6.5-8.0); Triglycerides 111 mg/dL (<150)
[2024-08-04 11:56] LABS: TSH reflex Free T4 0.89 uIU/mL (0.32-4.0)
[2024-08-04 12:00] LABS: Estimated Average Glucose 94 mg/dL; Hemoglobin A1c % 4.9 % (<6.0)
== END 2024-08-04 10:25 | disposition home or self-care (01) ==
LOC: HO.10HDL 10:24
PROVIDERS: Visit Provider Internal Medicine
DX: R30.0 Dysuria (principal); D64.9 Anemia, unspecified; E78.00 Pure hypercholesterolemia, unspecified; R73.9 Hyperglycemia, unspecified
CPT/HCPCS: 36415; 80053; 80061; 81003; 83036; 84443; 85025

== ENCOUNTER 2024-08-08 12:29 | Outpatient (AMB) | payer OTHER, SELFPAY ==
[2024-08-08 12:34] VITALS: BP 132/84; PULSE 86; O2SAT 99; BMI 26.9
--- NOTE | 2024-08-08 12:34 | MHC.PC.OV ---
Vital Signs 08/08/24 12:34 Height 5 ft 9 in Weight 182 lb BMI 26.9 BP 132/84 Blood Pressure Location Lt brachial Position Sitting Pulse 86 Pulse Source Pulse Oximeter Pulse Oximetry (%) 99 Oxygen Delivery Method Room Air Intake Visit Reasons: [facility] f/u Nutrition Services Aide Required: No Accompanied by: Self / Same As Patient Allergies statins Adverse Reaction (Mild, Uncoded 08/08/24 13:05) elevated liver enzymes Medication List - Last Reconciled 08/08/24 by Giovanni Talbert MD acetaminophen 500 mg PO Q6H PRN cholecalciferol (vitamin D3) 50 mcg PO DAILY 90 days cyclobenzaprine 5 mg PO Q8H PRN 10 days fluticasone propionate 50 mcg/actuation (Flonase Allergy Relief) 1 spray intranasal DAILY ibuprofen 600 mg PO TID PRN lidocaine 5% (Lidoderm) 1 patch topical DAILY naproxen 500 mg PO BID propranolol 10 mg PO DAILY sumatriptan succinate 50 mg PO Q2-4H PRN topiramate 25 mg PO BEDTIME Tobacco use date assessed: 08/08/24 Dental Screening Dental Screen Date: 08/08/24 Did you have a dental visit in the last 12 months?: Yes Did you have a dental problem in the last 6 months where you did not have access to dental care?: No Was dental information given to patient?: Patient has dentist HPI [facility] f/u HPI Details Patient comes in today for his follow up visit States that he feels okay He denies any headaches or dizziness Denies any chest pains, no increased shortness of breath No nausea/vomiting, no abdominal pain No change in bowel habits noted He had his follow-up labs done a few days ago - to discuss his results [facility] Medical History Essential hypertension Lumbar degenerative disc disease Vitamin D deficiency Allergic rhinitis Migraine Blurring of visual image of both eyes Obesity (BMI 30-39.9) Elevated LFTs Pure hypercholesterolemia Surgical History No pertinent past surgical history Family History Father Lung cancer Mother Hypertension Hyperlipidemia Asthma Maternal Grandmother No problems noted. Maternal Grandfather CAD (coronary artery disease) Brother In good health Sister In good health Social History Housing: Apartment Alcohol intake: never Patient Tobacco Use Status: Never used Tobacco e-Cigarette/Vaping Use: Never Used Second Hand Smoke Exposure: No service: No Current occupational status: disabled Cognitive needs: No Hearing needs: No Vision needs: No Questionnaire PHQ-9 Over the last 2 weeks, how often have you been bothered by any of the following problems? 1. Little interest or pleasure in doing things: not at all 2. Feeling down, depressed, or hopeless: not at all 3. Trouble falling or staying asleep, or sleeping too much: not at all 4. Feeling tired or having little energy: not at all 5. Poor appetite or overeating: not at all 6. Feeling bad about yourself - or that you are a failure or have let yourself or your family down: not at all 7. Trouble concentrating on things, such as reading the newspaper or watching television: not at all 8. Moving or speaking so slowly that other people could have noticed. Or the opposite - being so fidgety or restless that you have been moving around a lot more than usual: not at all 9. Thoughts that you would be better off or of hurting yourself in some way: not at all Total score: 0 Depression Screening Interpretation: Negative Depression Screening Done: Yes 30477 - PHQ-9 Billing: Yes Source: Developed by Drs. Gregorio Bridges, Diane Frankel, Pantera Alan and colleagues, with an educational ayleen from [email or web address]. Thrive Questionnaire Date Thrive assessed: 08/08/24 I am a: Patient What is your living situation today?: I have a steady place to live Within the past 12 months, did the food you bought not last and you didn't have the money to get more?: Never true Within the past 12 months, did you worry whether your food would run out before you got money to buy more?: Never true Do you have trouble paying for medicines?: No Do you have trouble getting transportation to medical appointments?: No Do you have trouble paying your heating and electricity bill?: No Do you have trouble taking care of your child, family member or friend?: No Do you have trouble with day-to-day activities such as bathing, preparing meals, shopping, managing finances, etc.?: No Are you currently unemployed and looking for a job?: No Are you interested in more education?: No Please select the resources that you would like help with: None Currently or been in a relationship where the following occur: No concerns reported THRIVE Score: 0 AUDIT C Alcohol Use Questionnaire (AUDIT-C) 1. How often do you have a drink containing alcohol?: Never 3. How often do you have six or more drinks on one occasion?: Never Total Score: 0 Score Reviewed/Action Taken: Yes DONA-7 AMB Questionnaire DONA-7 Date DONA - 7 assessed: 08/08/24 Feeling nervous, anxious, or on edge: 0 = Not at all Not being able to stop or control worryin = Not at all Worrying too much about different things: 0 = Not at all Trouble relaxin = Not at all Being so restless that it is hard to sit still: 0 = Not at all Becoming easily annoyed or irritable: 0 = Not at all Feeling afraid as if something awful might happen: 0 = Not at all Total DONA-7 score (0-4 normal; 5-9 mild; 10-14 moderate; 15-21 severe): 0 Source: Developed by Drs. Gregorio Bridges, Diane Frankel, Pantera Alan and colleagues, with an educational ayleen from [email or web address]. Review of Systems Const Denies chills, Denies fatigue, Denies fever(s) and Denies headache(s) ENT Denies dysphagia, Denies dizziness, Denies otalgia, Denies headache(s), Denies neck pain, Denies odynophagia and Denies sore throat Card Denies chest pain, Denies palpitations and Denies dyspnea Resp Denies chest congestion, Denies cough and Denies dyspnea GI Denies abdominal pain, Denies constipation, Denies dysphagia, Denies heartburn, Denies diarrhea, Denies nausea, Denies odynophagia and Denies vomiting Denies difficulty urinating, Denies dysuria, Denies urinary frequency and Denies urinary urgency Musc Reports back pain (recurrent, over the lower back; radiates down right leg at times) and Denies neck pain Skin/Breast Denies rash Neuro Denies dizziness and Denies headache(s) Endo Denies fatigue and Denies palpitations Physical exam (Primary Care) Vital Signs: Last Vital Signs Pulse 86 08/08/24 12:34 BP 132/84 08/08/24 12:34 Pulse Ox 99 08/08/24 12:34 Oxygen Delivery Method Room Air 08/08/24 12:34 BMI result Body Mass Index 26.9 Tobacco/Smoking Status: Tobacco use Status Tobacco use date assessed 08/08/24 08/08/24 12:43 Patient Tobacco Use Status Never used Tobacco 08/08/24 12:43 e-Cigarette/Vaping Use Never Used 08/08/24 12:43 PHQ-9: PHQ-9 Score PHQ-9: Total score 0 08/08/24 12:43 Depression Screening Interpretation: Negative Thrive Assessment: Date of Thrive Assessment Date Thrive assessed 08/08/24 08/08/24 12:43 Currently or been in a relationship where the following occur: No concerns reported Const General: no acute distress and alert HENMT Ears: TM's normal bilaterally and EAC's normal Throat: Yes posterior oropharynx normal and Yes tonsils normal (no TP congestion noted) Neck Neck: Yes supple and No lymphadenopathy Thyroid: Thyroid normal Resp Auscultation: clear to auscultation bilaterally, no rales and no wheezes Cardio Rate: regular rate Rhythm: regular rhythm Heart sounds: no murmurs GI Palpation (GI): Soft to palpation and nontender Auscultation: normal bowel sounds General: Yes no CVA tenderness Back/Spine/Pelvis Back: no CVA tenderness Thoracic/Lumbar Spine: paraspinal muscle tenderness bilaterally in the upper lumbar, in the mid lumbar and in the lower lumbar and lumbar spinal tenderness Sacroiliac joints: bilaterally nontender Skin Rashes: no rashes Extrem General: Yes no clubbing, cyanosis or edema Results Reviewed Results Reviewed: Laboratory Tests 04/01/24 08/04/24 09:20 10:28 WBC 7.2 Hgb 16.1 Hct 46.2 Plt Count 224 Sodium 139 Potassium 4.1 Creatinine 0.93 Estimated GFR > 60 Fasting Glucose 84 Hemoglobin A1c % 4.9 Calcium 9.3 AST 34 ALT 42 H Triglycerides 108 111 Cholesterol 208 H 224 H LDL Cholesterol, Calc 135 H 138 H HDL Cholesterol 52 64 25-OH Vitamin D Total 45.2 TSH 0.89 Ur Specific [place] 1.025 Urine Protein Negative Urine Glucose (UA) Negative Urine Blood Negative Urine Nitrite Negative Ur Leukocyte Esterase Negative Coding Level of Care Code Est Pt Level 4 (24409) Complex EM visit Add On G2211 Diagnoses Pure hypercholesterolemia E78.00 Essential hypertension I10 Elevated LFTs R79.89 Degeneration of intervertebral disc of lumbar region with discogenic back pain M51.360 Disc-related pain type: discogenic back pain only Hydrocele, right N43.3 Migraine without status migrainosus, not intractable, unspecified migraine type G43.909 Migraine type: unspecified Status migrainosus presence: without status migrainosus Intractability: not intractable Allergic rhinitis, unspecified seasonality, unspecified trigger J30.9 Allergic rhinitis trigger: unspecified Allergic rhinitis seasonality: unspecified Vitamin D deficiency E55.9 Overweight (BMI 25.0-29.9) E66.3 Additional Codes PHQ-9 - 81967 - PHQ-9 Billing: Yes ([id number]) Assessment & Plan Assessment & Plan (1) Pure hypercholesterolemia: Code(s): E78.00 - Pure hypercholesterolemia, unspecified Category: Medical Plan: Results of his labs done a few days ago reviewed and discussed with patient - have advised patient that his cholesterol levels are still elevated, with his LDL cholesterol at 138 mg/dL His total cholesterol level went up further to 224 mg/dl but this is mostly because his HDL cholesterol increased by 12 points Reinforced low-cholesterol diet He was taken off Atorvastatin previously due to vague symptoms that included generalized weakness, dizziness, nausea and myalgia as well as elevated LFTs - his LFTs have improved from previous but his serum ALT is still slightly elevated on his recent labs He was also tried more recently on Ezetimibe 10 mg QD recently but patient self-discontinued the medication due to complaint of weird smells in his nose repeatedly when he was taking the Rx Patient wishes to continue with diet modification for now and not take any Rx Will recheck his labs and fasting lipids in 4 months for follow up (2) Essential hypertension: Code(s): I10 - Essential (primary) hypertension Category: Medical Plan: He was recently started on Lisinopril at 2.5 mg QD but patient stopped taking his Rx a few months ago when he started feeling dizzy and lightheaded and noted that his systolic blood pressure was around 111 mm at the time, which is the lowest he has seen it and he feels that his blood pressure is too low, considering his symptoms States that he has not had any recurrence of his symptoms since he stopped taking the medication and prefers to try controlling his blood pressure with dietary restrictions for now Reinforced low-sodium diet Patient is reminded to continue monitoring his blood pressure regularly - goal is systolic BP of at least 120-130 mm or less (3) Elevated LFTs: Code(s): R79.89 - Other specified abnormal findings of blood chemistry Category: Medical Plan: Abdominal US done back in July 2022 came back significant only for findings of hepatis steatosis; hepatitis profile done at the time all came back negative His LFTs have improved from previous but his serum ALT is still slightly elevated on his recent labs Will continue to monitor his LFTs regularly (4) Lumbar degenerative disc disease: Code(s): M51.369 - Other intervertebral disc degeneration, lumbar region without mention of lumbar back pain or lower extremity pain Category: Medical Qualifiers: Disc-related pain type: discogenic back pain only Qualified Code(s): M51.360 - Other intervertebral disc degeneration, lumbar region with discogenic back pain only Plan: Lumbar spine x-rays done at the ER last year revealed (+) chronic mild multilevel discovertebral degenerative changes of the lumbar spine but no acute injuries or fractures States that his low back pain has improved a lot with physical therapy previously Reinforced activity and weight lifting restrictions Continue Cyclobenzaprine 5 mg TID PRN and Naproxen 500 mg BID PRN for pain (5) Hydrocele, right: Code(s): N43.3 - Hydrocele, unspecified Category: Medical Plan: Testicular US done at the ER last year revealed (+) small bilateral hydroceles; both testicles were otherwise normal Patient states that his symptoms have improved a lot with Abx Tx with Cephalexin back then Follow up with urology as scheduled (6) Migraine: Code(s): G43.909 - Migraine, unspecified, not intractable, without status migrainosus Category: Medical Qualifiers: Migraine type: unspecified Status migrainosus presence: without status migrainosus Intractability: not intractable Qualified Code(s): G43.909 - Migraine, unspecified, not intractable, without status migrainosus Plan: Patient states that his headaches have been well-controlled on Topiramate 25 mg QHS - Rx was started by neurology (Dr. Lucas) Reinforced avoidance of migraine triggers Continue Sumatriptan 50 mg PRN Follow up with neurology as scheduled (7) Allergic rhinitis: Code(s): J30.9 - Allergic rhinitis, unspecified Category: Medical Qualifiers: Allergic rhinitis trigger: unspecified Allergic rhinitis seasonality: unspecified Qualified Code(s): J30.9 - Allergic rhinitis, unspecified Plan: Continue Fluticasone 50 mcg nasal spray QD PRN (8) Vitamin D deficiency: Code(s): E55.9 - Vitamin D deficiency, unspecified Category: Medical Plan: Continue Vitamin D3 2000 units QD (9) Overweight (BMI 25.0-29.9): Code(s): E66.3 - Overweight Category: Medical Plan: Reinforced diet/exercise as tolerated/lose weight Plan Follow up in 4 months Orders: Orders Comprehensive [place]. Panel Fast 4 Months E78.00 - Pure hypercholesterolemia, unspecified Complete Blood Count Auto Diff 4 Months D64.9 - Anemia, unspecified Lipid Panel 4 Months E78.00 - Pure hypercholesterolemia, unspecified Vitamin D 25-OH Total 4 Months E55.9 - Vitamin D deficiency, unspecified UA CC w/rflx Micro + Cult 4 Months R30.0 - Dysuria
== END 2024-08-08 13:15 | disposition home or self-care (01) ==
LOC: HO.HMCH 12:30
PROVIDERS: PCP Internal Medicine; Visit Provider Internal Medicine
DX: E78.00 Pure hypercholesterolemia, unspecified (principal); I10 Essential (primary) hypertension; R79.89 Other specified abnormal findings of blood chemistry; M51.360 Other intervertebral disc degeneration, lumbar region with discogenic back pain only; N43.3 Hydrocele, unspecified; G43.909 Migraine, unspecified, not intractable, without status migrainosus; J30.9 Allergic rhinitis, unspecified; E55.9 Vitamin D deficiency, unspecified; E66.3 Overweight

== ENCOUNTER → 2024-08-08 12:29 | Outpatient (BNVA) | payer OTHER, SELFPAY | PROVIDERS: PCP Internal Medicine; Visit Provider Internal Medicine | DX: E78.00 Pure hypercholesterolemia, unspecified (principal); I10 Essential (primary) hypertension; R79.89 Other specified abnormal findings of blood chemistry; M51.360 Other intervertebral disc degeneration, lumbar region with discogenic back pain only; G43.909 Migraine, unspecified, not intractable, without status migrainosus; N43.3 Hydrocele, unspecified; J30.9 Allergic rhinitis, unspecified; E55.9 Vitamin D deficiency, unspecified; E66.3 Overweight; D64.9 Anemia, unspecified; R30.0 Dysuria; Z68.26 Body mass index [BMI] 26.0-26.9, adult | CPT/HCPCS: 96127; 99212 ==

== ENCOUNTER 2024-12-17 09:33 | Outpatient (REF) | payer OTHER, SELFPAY ==
--- OUTSIDE RECORDS SUMMARY | 2024-12-17 10:03 | XMS_ITS | Patient Health Record ---
Author Organization [facility] Address [address] [place] [address] Care Team Providers Care House Wrecker Name Role Phone Freida Oro Primary Care Provider UnavailMathieu Baker Jr Unavailable [phone] Reason For Referral No Information Medications Medication SIG (Take, Route, Frequency, Duration) Notes Start Date End Date Status Lisinopril Active Problems Problem Type SNOMED Code ICD Code Onset Dates Problem Status W/U Status Risk Notes Problem Irritable bowel syndrome (40225831) Irritable bowel syndrome (564.1) Active confirmed Plan Of Treatment No Information Insurance Providers Payer Name Payer Address Payer Phone Subscriber Number Group Number Insured Name Patient Relationship to Insured Coverage Start Date Coverage End Date [facility] [address] [place] [address] [id number] SONNY MALDONADO Self - patient is the insured Medical (General) History Medical History History ICD Code hypertension elevated cholesterol
[2024-12-17 10:25] LABS: MANUAL DIFF FLAG NO
[2024-12-17 10:44] LABS: Hematocrit 46.0 % (42.0-52.0); Hemoglobin 16.3 g/dl (14.0-18.0); Imm Gran Abs Auto 0.01 X10*3/uL (0.00-0.03); Imm Gran Pct Auto 0.1 % (0.0-0.4); Lymphocytes Absolute Auto 2.1 X10*3/uL (1.2-4.9); Mean Corpuscular HGB Conc 35.4 g/dl (31.0-36.0); Mean Corpuscular Hemoglobin 31.7 pg (27.0-33.0); Mean Corpuscular Volume 89.5 fL (80.0-98.0); NRBC Abs Auto 0.000 X10*3/uL (0.0-0.012); NRBC Pct Auto 0.0 /100WBC (0.0-0.2); Platelet Count 232 X10*3/uL (160-400); Red Blood Count 5.14 X10*6/uL (4.60-5.80); White Blood Count 7.5 X10*3/uL (4.8-10.8)
[2024-12-17 11:09] LABS: Alanine Aminotransferase 67 U/L (0-40); Albumin Level 4.5 g/dL (3.5-5.0); Alkaline Phosphatase 112 U/L (39-117); Anion Gap 11 (12-20); Aspartate Amino Transferase 46 U/L (5-37); Blood Urea Nitrogen 17 mg/dL (9-16); Calcium 9.3 mg/dL (8.4-10.2); Carbon Dioxide 28 mmol/L (22-29); Chloride 103 mmol/L (96-108); Cholesterol 220 mg/dL (<200); Estimated Glomerular Filt Rate > 60; HDL Cholesterol 61 mg/dL (>40); Potassium 4.2 mmol/L (3.3-5.1); Sodium 138 mmol/L (135-145); Total Protein 7.6 g/dL (6.5-8.0); Triglycerides 116 mg/dL (<150)
[2024-12-17 11:23] LABS: Appearance Urine Clear; Glucose Urine UA Negative (Negative); PH 6.0 (5.0-9.0); Specific Gravity - Urine 1.010 (1.005-1.025)
== END 2024-12-17 09:34 | disposition home or self-care (01) ==
LOC: HO.10HDL 09:33
PROVIDERS: Visit Provider Internal Medicine
DX: R30.0 Dysuria (principal); E78.00 Pure hypercholesterolemia, unspecified; D64.9 Anemia, unspecified; E55.9 Vitamin D deficiency, unspecified
CPT/HCPCS: 36415; 80053; 80061; 81003; 82306; 85025

== ENCOUNTER 2024-12-22 13:10 | Outpatient (AMB) | payer OTHER, SELFPAY ==
[2024-12-22 13:13] VITALS: BP 132/80; PULSE 85; O2SAT 98; BMI 27.4
--- NOTE | 2024-12-22 13:13 | A.OFFPC_ITS ---
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: No Accompanied by: Self / Same As Patient Allergies statins Adverse Reaction (Mild, Uncoded 12/22/24 13:40) elevated liver enzymes Medication List - Last Reconciled 12/22/24 by Giovanni Talbert MD acetaminophen 500 mg PO Q6H PRN cholecalciferol (vitamin D3) 50 mcg PO DAILY 90 days cyclobenzaprine 5 mg PO Q8H PRN 10 days fluticasone propionate 50 mcg/actuation (Flonase Allergy Relief) 1 spray intranasal DAILY ibuprofen 600 mg PO TID PRN lidocaine 5% (Lidoderm) 1 patch topical DAILY naproxen 500 mg PO BID propranolol 10 mg PO DAILY sumatriptan succinate 50 mg PO Q2-4H PRN topiramate 25 mg PO BEDTIME Tobacco use date assessed: 12/22/24 Dental Screening Dental Screen Date: 12/22/24 Did you have a dental visit in the last 12 months?: Yes Did you have a dental problem in the last 6 months where you did not have access to dental care?: No Was dental information given to patient?: Patient has dentist HPI 4 month f/u HPI Details Patient comes in today for his follow up visit States that he feels okay He denies any headaches or dizziness Denies any chest pains, no increased shortness of breath No nausea/vomiting, no abdominal pain No change in bowel habits noted He had his follow-up labs done a few days ago - to discuss his results [facility] Medical History Essential hypertension Lumbar degenerative disc disease Vitamin D deficiency Allergic rhinitis Migraine Blurring of visual image of both eyes Obesity (BMI 30-39.9) Elevated LFTs Pure hypercholesterolemia Surgical History No pertinent past surgical history Family History Father Lung cancer Mother Hypertension Hyperlipidemia Asthma Maternal Grandmother No problems noted. Maternal Grandfather CAD (coronary artery disease) Brother In good health Sister In good health Social History Housing: Apartment Alcohol intake: never Patient Tobacco Use Status: Never used Tobacco e-Cigarette/Vaping Use: Never Used Second Hand Smoke Exposure: No service: No Current occupational status: disabled Cognitive needs: No Hearing needs: No Vision needs: No Questionnaire PHQ-9 Over the last 2 weeks, how often have you been bothered by any of the following problems? 1. Little interest or pleasure in doing things: not at all 2. Feeling down, depressed, or hopeless: not at all 3. Trouble falling or staying asleep, or sleeping too much: not at all 4. Feeling tired or having little energy: not at all 5. Poor appetite or overeating: not at all 6. Feeling bad about yourself - or that you are a failure or have let yourself or your family down: not at all 7. Trouble concentrating on things, such as reading the newspaper or watching television: not at all 8. Moving or speaking so slowly that other people could have noticed. Or the opposite - being so fidgety or restless that you have been moving around a lot more than usual: not at all 9. Thoughts that you would be better off or of hurting yourself in some way: not at all Total score: 0 Depression Screening Interpretation: Negative Depression Screening Done: Yes 59604 - PHQ-9 Billing: Yes Source: Developed by Drs. Gregorio Bridges, Diane Frankel, Pantera Alan and colleagues, with an educational ayleen from [employer]. Thrive Questionnaire Date Thrive assessed: 12/22/24 I am a: Patient What is your living situation today?: I have a steady place to live Within the past 12 months, did the food you bought not last and you didn't have the money to get more?: Never true Within the past 12 months, did you worry whether your food would run out before you got money to buy more?: Never true Do you have trouble paying for medicines?: No Do you have trouble getting transportation to medical appointments?: No Do you have trouble paying your heating and electricity bill?: No Do you have trouble taking care of your child, family member or friend?: I choose not to answer this question Do you have trouble with day-to-day activities such as bathing, preparing meals, shopping, managing finances, etc.?: I choose not to answer this question Are you currently unemployed and looking for a job?: I choose not to answer this question Are you interested in more education?: I choose not to answer this question Please select the resources that you would like help with: None Currently or been in a relationship where the following occur: No concerns reported THRIVE Score: 0 AUDIT C Alcohol Use Questionnaire (AUDIT-C) 1. How often do you have a drink containing alcohol?: Never 3. How often do you have six or more drinks on one occasion?: Never Total Score: 0 Score Reviewed/Action Taken: Yes DONA-7 AMB Questionnaire DONA-7 Date DONA - 7 assessed: 12/22/24 Feeling nervous, anxious, or on edge: 0 = Not at all Not being able to stop or control worryin = Not at all Worrying too much about different things: 0 = Not at all Trouble relaxin = Not at all Being so restless that it is hard to sit still: 0 = Not at all Becoming easily annoyed or irritable: 0 = Not at all Feeling afraid as if something awful might happen: 0 = Not at all Total DONA-7 score (0-4 normal; 5-9 mild; 10-14 moderate; 15-21 severe): 0 Source: Developed by Drs. Gregorio Bridges, Diane Frankel, Pantera Alan and colleagues, with an educational ayleen from [employer]. Review of Systems Const Denies chills, Denies fatigue, Denies fever(s) and Denies headache(s) ENT Denies dysphagia, Denies dizziness, Denies otalgia, Denies headache(s), Denies neck pain, Denies odynophagia and Denies sore throat Card Denies chest pain, Denies palpitations and Denies dyspnea Resp Denies chest congestion, Denies cough and Denies dyspnea GI Denies abdominal pain, Denies constipation, Denies dysphagia, Denies heartburn, Denies diarrhea, Denies nausea, Denies odynophagia and Denies vomiting Denies difficulty urinating, Denies dysuria, Denies urinary frequency and Denies urinary urgency Musc Reports back pain (recurrent, over the lower back; radiates down right leg at times) and Denies neck pain Skin/Breast Denies rash Neuro Denies dizziness and Denies headache(s) Endo Denies fatigue and Denies palpitations Physical exam (Primary Care) Vital Signs: Last Vital Signs Pulse 85 12/22/24 13:13 BP 132/80 12/22/24 13:13 Pulse Ox 98 12/22/24 13:13 Oxygen Delivery Method Room Air 12/22/24 13:13 BMI result Body Mass Index 27.4 Tobacco/Smoking Status: Tobacco use Status Tobacco use date assessed 12/22/24 12/22/24 13:20 Patient Tobacco Use Status Never used Tobacco 12/22/24 13:20 e-Cigarette/Vaping Use Never Used 12/22/24 13:20 PHQ-9: PHQ-9 Score PHQ-9: Total score 0 12/22/24 13:42 Depression Screening Interpretation: Negative Thrive Assessment: Date of Thrive Assessment Date Thrive assessed 12/22/24 12/22/24 13:20 Currently or been in a relationship where the following occur: No concerns reported Const General: no acute distress and alert HENMT Ears: TM's normal bilaterally and EAC's normal Throat: Yes posterior oropharynx normal and Yes tonsils normal (no TP congestion noted) Neck Neck: Yes supple and No lymphadenopathy Thyroid: Thyroid normal Resp Auscultation: clear to auscultation bilaterally, no rales and no wheezes Cardio Rate: regular rate Rhythm: regular rhythm Heart sounds: no murmurs GI Palpation (GI): Soft to palpation and nontender Auscultation: normal bowel sounds General: Yes no CVA tenderness Back/Spine/Pelvis Back: no CVA tenderness Thoracic/Lumbar Spine: lumbar spinal tenderness Skin Rashes: no rashes Extrem General: Yes no clubbing, cyanosis or edema Results Reviewed Results Reviewed: Laboratory Tests 12/17/24 09:38 WBC 7.5 Hgb 16.3 Hct 46.0 Plt Count 232 Sodium 138 Potassium 4.2 Creatinine 0.87 Estimated GFR > 60 Fasting Glucose 85 Calcium 9.3 AST 46 H ALT 67 H Triglycerides 116 Cholesterol 220 H LDL Cholesterol, Calc 136 H HDL Cholesterol 61 25-OH Vitamin D Total 69.9 Ur Specific [place] 1.010 Urine Protein Negative Urine Glucose (UA) Negative Urine Blood Negative Urine Nitrite Negative Ur Leukocyte Esterase Negative Coding Level of Care Code Est Pt Level 4 (87665) Diagnoses Pure hypercholesterolemia E78.00 Essential hypertension I10 Elevated LFTs R79.89 Degeneration of intervertebral disc of lumbar region with discogenic back pain M51.360 Disc-related pain type: discogenic back pain only Migraine without status migrainosus, not intractable, unspecified migraine type G43.909 Intractability: not intractable Migraine type: unspecified Status migrainosus presence: without status migrainosus Allergic rhinitis, unspecified seasonality, unspecified trigger J30.9 Allergic rhinitis seasonality: unspecified Allergic rhinitis trigger: unspecified Vitamin D deficiency E55.9 Hydrocele, right N43.3 Overweight (BMI 25.0-29.9) E66.3 Additional Codes PHQ-9 - 06933 - PHQ-9 Billing: Yes ([id number]) Assessment & Plan Assessment & Plan (1) Pure hypercholesterolemia: Code(s): E78.00 - Pure hypercholesterolemia, unspecified Category: Medical Plan: Results of his labs done a few days ago reviewed and discussed with patient - have advised patient that his cholesterol levels are still elevated, with his LDL cholesterol at 136 mg/dL, which is mostly unchanged from a few months ago Reinforced low-cholesterol diet He was taken off Atorvastatin previously due to vague symptoms that included generalized weakness, dizziness, nausea and myalgia as well as elevated LFTs - his LFTs have increased again from previous on his recent labs He was also tried more recently on Ezetimibe 10 mg QD recently but patient self- discontinued the medication due to complaint of weird smells in his nose repea tedly when he was taking the Rx Patient wishes to continue with diet modification for now and not take any Rx for his high cholesterol levels Will recheck his labs and fasting lipids in 4 months for follow up (2) Essential hypertension: Code(s): I10 - Essential (primary) hypertension Category: Medical Plan: He was recently started on Lisinopril at 2.5 mg QD but patient stopped taking his Rx a few months ago when he started feeling dizzy and lightheaded and noted that his systolic blood pressure was around 111 mm at the time, which is the lowest he has seen it and he felt that his blood pressure then was too low, considering his symptoms States that he has not had any recurrence of his symptoms since he stopped taking the medication and prefers to try controlling his blood pressure with dietary restrictions for now Reinforced low-sodium diet Patient is reminded to continue monitoring his blood pressure regularly - goal is systolic BP of at least 120-130 mm or less (3) Elevated LFTs: Code(s): R79.89 - Other specified abnormal findings of blood chemistry Category: Medical Plan: Abdominal US done back in July 2022 came back significant only for findings of hepatis steatosis; hepatitis profile done at the time all came back negative His LFTs have again gone up on his recent labs Will continue to monitor his LFTs regularly (4) Lumbar degenerative disc disease: Code(s): M51.369 - Other intervertebral disc degeneration, lumbar region without mention of lumbar back pain or lower extremity pain Category: Medical Qualifiers: Disc-related pain type: discogenic back pain only Qualified Code(s): M51.360 - Other intervertebral disc degeneration, lumbar region with discogenic back pain only Plan: Lumbar spine x-rays done at the ER last year revealed (+) chronic mild multilevel discovertebral degenerative changes of the lumbar spine but no acute injuries or fractures States that his low back pain has improved a lot with physical therapy in the past - advised that we can refer him back to PT if needed Reinforced activity and weight lifting restrictions Continue Cyclobenzaprine 5 mg TID PRN and Naproxen 500 mg BID PRN for pain (5) Migraine: Code(s): G43.909 - Migraine, unspecified, not intractable, without status migrainosus Category: Medical Qualifiers: Intractability: not intractable Migraine type: unspecified Status migrainosus presence: without status migrainosus Qualified Code(s): G43.909 - Migraine, unspecified, not intractable, without status migrainosus Plan: Patient states that his headaches have been well-controlled on Topiramate 25 mg QHS - Rx was started by neurology (Dr. Lucas) Reinforced avoidance of migraine triggers Continue Sumatriptan 50 mg PRN Follow up with neurology as scheduled (6) Allergic rhinitis: Code(s): J30.9 - Allergic rhinitis, unspecified Category: Medical Qualifiers: Allergic rhinitis seasonality: unspecified Allergic rhinitis trigger: unspecified Qualified Code(s): J30.9 - Allergic rhinitis, unspecified Plan: Continue Fluticasone 50 mcg nasal spray QD PRN (7) Vitamin D deficiency: Code(s): E55.9 - Vitamin D deficiency, unspecified Category: Medical Plan: Continue Vitamin D3 2000 units QD (8) Hydrocele, right: Code(s): N43.3 - Hydrocele, unspecified Category: Medical Plan: Testicular US done at the ER last year revealed (+) small bilateral hydroceles; both testicles were otherwise normal Patient states that his symptoms have improved a lot with Abx Tx with Cephalexin back then Follow up with urology as scheduled (9) Overweight (BMI 25.0-29.9): Code(s): E66.3 - Overweight Category: Medical Plan: Reinforced diet/exercise as tolerated/lose weight Plan Follow up in 4 months Orders: Orders Comprehensive [place]. Panel Fast 4 Months E78.00 - Pure hypercholesterolemia, unspecified UA CC w/rflx Micro + Cult 4 Months R30.0 - Dysuria Complete Blood Count Auto Diff 4 Months D64.9 - Anemia, unspecified Lipid Panel 4 Months E78.00 - Pure hypercholesterolemia, unspecified TSH reflex Free T4 4 Months E78.00 - Pure hypercholesterolemia, unspecified Vitamin D 25-OH Total 4 Months E55.9 - Vitamin D deficiency, unspecified
--- OUTSIDE RECORDS SUMMARY | 2024-12-22 14:04 | XMS_ITS | Patient Health Record ---
Author Organization [facility] Address [address] [place] [address] Care Team Providers Care Electromatic Typist Name Role Phone Freida Oro Primary Care Provider UnavailMathieu Baker Jr Unavailable Reason For Referral No Information Medications Medication SIG (Take, Route, Frequency, Duration) Notes Start Date End Date Status Lisinopril Active Problems Problem Type SNOMED Code ICD Code Onset Dates Problem Status W/U Status Risk Notes Problem Irritable bowel syndrome (52453936) Irritable bowel syndrome (564.1) Active confirmed Plan Of Treatment No Information Insurance Providers Payer Name Payer Address Payer Phone Subscriber Number Group Number Insured Name Patient Relationship to Insured Coverage Start Date Coverage End Date [facility] [address] [place] [phone] [id number] SONNY MALDONADO Self - patient is the insured Medical (General) History Medical History History ICD Code hypertension elevated cholesterol
== END 2024-12-22 13:49 | disposition home or self-care (01) ==
LOC: HO.HMCH 13:11
PROVIDERS: PCP Internal Medicine; Visit Provider Internal Medicine
DX: E78.00 Pure hypercholesterolemia, unspecified (principal); I10 Essential (primary) hypertension; R79.89 Other specified abnormal findings of blood chemistry; M51.360 Other intervertebral disc degeneration, lumbar region with discogenic back pain only; G43.909 Migraine, unspecified, not intractable, without status migrainosus; J30.9 Allergic rhinitis, unspecified; E55.9 Vitamin D deficiency, unspecified; N43.3 Hydrocele, unspecified; E66.3 Overweight

== ENCOUNTER 2025-04-22 10:18 | Outpatient (REF) | payer OTHER, SELFPAY ==
--- OUTSIDE RECORDS SUMMARY | 2025-04-22 12:40 | XMS_ITS | Patient Health Record ---
Author Organization [facility] Address [address] [place] [address] Care Team Providers Care It Architecture Analyst Name Role Phone Freida Oro Primary Care Provider UnavailMathieu Baker Jr Unavailable Reason For Referral No Information Medications Medication SIG (Take, Route, Frequency, Duration) Notes Start Date End Date Status Lisinopril Active Social History Social History Additional Details Category Social Info Options Details Miscellaneous: Marital status: single Occupation: unemployed Problems Problem Type SNOMED Code ICD Code Onset Dates Problem Status W/U Status Risk Notes Problem Irritable bowel syndrome (74199498) Irritable bowel syndrome (564.1) Active confirmed Plan Of Treatment No Information Insurance Providers Payer Name Payer Address Payer Phone Subscriber Number Group Number Insured Name Patient Relationship to Insured Coverage Start Date Coverage End Date [facility] [address] [place] [phone] [id number] MALDONADO DENNIS Self - patient is the insured Medical (General) History Medical History History ICD Code hypertension elevated cholesterol
[2025-04-22 13:24] LABS: MANUAL DIFF FLAG NO
[2025-04-22 13:25] LABS: Appearance Urine Clear; Glucose Urine UA Negative (Negative); PH 7.5 (5.0-9.0); Specific Gravity - Urine 1.010 (1.005-1.025)
[2025-04-22 13:30] LABS: Hematocrit 44.7 % (42.0-52.0); Hemoglobin 15.8 g/dl (14.0-18.0); Imm Gran Abs Auto 0.01 X10*3/uL (0.00-0.03); Imm Gran Pct Auto 0.1 % (0.0-0.4); Lymphocytes Absolute Auto 2.0 X10*3/uL (1.2-4.9); Mean Corpuscular HGB Conc 35.3 g/dl (31.0-36.0); Mean Corpuscular Hemoglobin 31.9 pg (27.0-33.0); Mean Corpuscular Volume 90.3 fL (80.0-98.0); NRBC Abs Auto 0.000 X10*3/uL (0.0-0.012); NRBC Pct Auto 0.0 /100WBC (0.0-0.2); Platelet Count 218 X10*3/uL (160-400); Red Blood Count 4.95 X10*6/uL (4.60-5.80); White Blood Count 7.2 X10*3/uL (4.8-10.8)
[2025-04-22 13:49] LABS: Alanine Aminotransferase 51 U/L (0-40); Albumin Level 4.6 g/dL (3.5-5.0); Alkaline Phosphatase 118 U/L (39-117); Anion Gap 9 (12-20); Aspartate Amino Transferase 42 U/L (5-37); Blood Urea Nitrogen 17 mg/dL (9-16); Calcium 9.4 mg/dL (8.4-10.2); Carbon Dioxide 28 mmol/L (22-29); Chloride 104 mmol/L (96-108); Cholesterol 195 mg/dL (<200); Estimated Glomerular Filt Rate > 60; HDL Cholesterol 63 mg/dL (>40); Potassium 4.3 mmol/L (3.3-5.1); Sodium 137 mmol/L (135-145); Total Protein 7.6 g/dL (6.5-8.0); Triglycerides 86 mg/dL (<150)
== END 2025-04-22 10:19 | disposition home or self-care (01) ==
LOC: HO.10HDL 10:18
PROVIDERS: Visit Provider Internal Medicine
DX: R30.0 Dysuria (principal); E78.00 Pure hypercholesterolemia, unspecified; E55.9 Vitamin D deficiency, unspecified; D64.9 Anemia, unspecified
CPT/HCPCS: 36415; 80053; 80061; 81003; 82306; 84443; 85025

== ENCOUNTER 2025-04-24 13:30 | Outpatient (AMB) | payer OTHER, SELFPAY ==
[2025-04-24 13:32] VITALS: BP 124/80; PULSE 79; O2SAT 99; BMI 27.8
--- NOTE | 2025-04-24 13:32 | A.OFFPC_ITS ---
Vital Signs 04/24/25 13:32 Height 5 ft 9 in Weight 188 lb BMI 27.8 BP 124/80 Blood Pressure Location Lt brachial Position Sitting Pulse 79 Pulse Source Pulse Oximeter Pulse Oximetry (%) 99 Oxygen Delivery Method Room Air Intake Visit Reasons: [facility] f/u [employer] Middle[employer] Developer Required: No Accompanied by: Self / Same As Patient Allergies statins Adverse Reaction (Mild, Uncoded 04/24/25 13:55) elevated liver enzymes Medication List - Last Reconciled 04/24/25 by Giovanni Talbert MD acetaminophen 500 mg PO Q6H PRN cholecalciferol (vitamin D3) 50 mcg PO DAILY 90 days cyclobenzaprine 5 mg PO Q8H PRN 10 days fluticasone propionate 50 mcg/actuation (Flonase Allergy Relief) 1 spray intranasal DAILY ibuprofen 600 mg PO TID PRN lidocaine 5% (Lidoderm) 1 patch topical DAILY naproxen 500 mg PO BID propranolol 10 mg PO DAILY sumatriptan succinate 50 mg PO Q2-4H PRN topiramate 25 mg PO BEDTIME Tobacco use date assessed: 04/24/25 Dental Screening Dental Screen Date: 04/24/25 Did you have a dental visit in the last 12 months?: Yes Did you have a dental problem in the last 6 months where you did not have access to dental care?: No Was dental information given to patient?: Patient has dentist HPI [facility] f/u HPI Details Patient comes in today for his follow up visit States that he feels okay He denies any headaches or dizziness Denies any chest pains, no increased shortness of breath No nausea/vomiting, no abdominal pain No change in bowel habits noted Notes that he continues to not be able to smell anything - thinks that this started a couple of years ago He was referred to and was seen by ENT for this early last year and was advised that his symptoms may be due to allergies as he had findings of mucosal thickening on imaging studies in addition to his parosmia He was reportedly prescribed some Rx for his allergies butp patient states that they have not helped much He had his follow-up labs done a couple of days ago - to discuss his results He would also like to get his flu shot today [facility] Medical History (Updated 04/24/25 @ 14:43 by Giovanni Talbert MD) Parosmia Essential hypertension Lumbar degenerative disc disease Vitamin D deficiency Allergic rhinitis Migraine Blurring of visual image of both eyes Obesity (BMI 30-39.9) Elevated LFTs Pure hypercholesterolemia Surgical History No pertinent past surgical history Family History Father Lung cancer Mother Hypertension Hyperlipidemia Asthma Maternal Grandmother No problems noted. Maternal Grandfather CAD (coronary artery disease) Brother In good health Sister In good health Social History Housing: Apartment Alcohol intake: never Patient Tobacco Use Status: Never used Tobacco e-Cigarette/Vaping Use: Never Used Second Hand Smoke Exposure: No service: No Current occupational status: disabled Cognitive needs: No Hearing needs: No Vision needs: No Questionnaire PHQ-9 Over the last 2 weeks, how often have you been bothered by any of the following problems? 1. Little interest or pleasure in doing things: not at all 2. Feeling down, depressed, or hopeless: not at all 3. Trouble falling or staying asleep, or sleeping too much: not at all 4. Feeling tired or having little energy: not at all 5. Poor appetite or overeating: not at all 6. Feeling bad about yourself - or that you are a failure or have let yourself or your family down: not at all 7. Trouble concentrating on things, such as reading the newspaper or watching television: not at all 8. Moving or speaking so slowly that other people could have noticed. Or the opposite - being so fidgety or restless that you have been moving around a lot more than usual: not at all 9. Thoughts that you would be better off or of hurting yourself in some way: not at all Total score: 0 Depression Screening Interpretation: Negative Depression Screening Done: Yes 58892 - PHQ-9 Billing: Yes Source: Developed by Drs. Gregorio Bridges, Diane Frankel, Pantera Alan and colleagues, with an educational ayleen from [employer]. Thrive Questionnaire Date Thrive assessed: 04/24/25 I am a: Patient What is your living situation today?: I have a steady place to live Within the past 12 months, did the food you bought not last and you didn't have the money to get more?: Never true Within the past 12 months, did you worry whether your food would run out before you got money to buy more?: Never true Do you have trouble paying for medicines?: No Do you have trouble getting transportation to medical appointments?: No Do you have trouble paying your heating and electricity bill?: No Do you have trouble taking care of your child, family member or friend?: I choose not to answer this question Do you have trouble with day-to-day activities such as bathing, preparing meals, shopping, managing finances, etc.?: I choose not to answer this question Are you currently unemployed and looking for a job?: I choose not to answer this question Are you interested in more education?: I choose not to answer this question Please select the resources that you would like help with: None Currently or been in a relationship where the following occur: No concerns reported THRIVE Score: 0 AUDIT C Alcohol Use Questionnaire (AUDIT-C) 1. How often do you have a drink containing alcohol?: Never 3. How often do you have six or more drinks on one occasion?: Never Total Score: 0 Score Reviewed/Action Taken: Yes DONA-7 AMB Questionnaire DONA-7 Date DONA - 7 assessed: 04/24/25 Feeling nervous, anxious, or on edge: 0 = Not at all Not being able to stop or control worryin = Not at all Worrying too much about different things: 0 = Not at all Trouble relaxin = Not at all Being so restless that it is hard to sit still: 0 = Not at all Becoming easily annoyed or irritable: 0 = Not at all Feeling afraid as if something awful might happen: 0 = Not at all Total DONA-7 score (0-4 normal; 5-9 mild; 10-14 moderate; 15-21 severe): 0 Source: Developed by Drs. Gregorio Bridges, Diane Frankel, Pantera Alan and colleagues, with an educational ayleen from [employer]. Review of Systems Const Denies chills, Denies fatigue, Denies fever(s) and Denies headache(s) ENT Details: (+) persistent loss/distorted sense of smell Denies dysphagia, Denies dizziness, Denies otalgia, Denies headache(s), Denies neck pain, Denies odynophagia and Denies sore throat Card Denies chest pain, Denies palpitations and Denies dyspnea Resp Denies chest congestion, Denies cough and Denies dyspnea GI Denies abdominal pain, Denies constipation, Denies dysphagia, Denies heartburn, Denies diarrhea, Denies nausea, Denies odynophagia and Denies vomiting Denies difficulty urinating, Denies dysuria, Denies urinary frequency and Denies urinary urgency Musc Reports back pain (on and off, over the lower back; radiates down right leg at times) and Denies neck pain Skin/Breast Denies rash Neuro Denies dizziness and Denies headache(s) Endo Denies fatigue and Denies palpitations Physical exam (Primary Care) Vital Signs: Last Vital Signs Pulse 79 04/24/25 13:32 BP 124/80 04/24/25 13:32 Pulse Ox 99 04/24/25 13:32 Oxygen Delivery Method Room Air 04/24/25 13:32 BMI result Body Mass Index 27.8 Tobacco/Smoking Status: Tobacco use Status Tobacco use date assessed 04/24/25 04/24/25 13:36 Patient Tobacco Use Status Never used Tobacco 04/24/25 13:36 e-Cigarette/Vaping Use Never Used 04/24/25 13:36 PHQ-9: PHQ-9 Score PHQ-9: Total score 0 04/24/25 14:03 Depression Screening Interpretation: Negative Thrive Assessment: Date of Thrive Assessment Date Thrive assessed 04/24/25 04/24/25 13:36 Currently or been in a relationship where the following occur: No concerns reported Const General: no acute distress and alert HENMT Ears: TM's normal bilaterally and EAC's normal Throat: Yes posterior oropharynx normal and Yes tonsils normal (no TP congestion noted) Neck Neck: Yes supple and No lymphadenopathy Thyroid: Thyroid normal Resp Auscultation: clear to auscultation bilaterally, no rales and no wheezes Cardio Rate: regular rate Rhythm: regular rhythm Heart sounds: no murmurs GI Palpation (GI): Soft to palpation and nontender Auscultation: normal bowel sounds General: Yes no CVA tenderness Back/Spine/Pelvis Back: no CVA tenderness Thoracic/Lumbar Spine: lumbar spinal tenderness (mild) Skin Rashes: no rashes Extrem General: Yes no clubbing, cyanosis or edema Office Procedures Flu Questionnaire Does the patient have a severe egg allergy?: No Does the patient have severe life threatening allergies?: No Does the patient have a fever or illness today?: No Has the patient ever had Guillain-[place] Syndrome?: No Has the patient ever had any past reaction to a flu shot?: No Immunizations Fluarix [id number] (PF) 45 mcg (15 mcg x 3)/0.5 mL IM syringe Performing Provider: Giovanni Talbert MD [facility] Administered by: ESTELA Palmer on 04/24/25 14:07 Dose Route Admin Location Dispensed Lot Number Expiration Date [facility] Food Assembler 0.5 mL IM Left Deltoid 0.5 mL [id number] 11/03/25 [id number] [employer] VIS Given Date VIS Provided VIS Publication Date 04/24/25 Single Vaccine 24 Eligibility Eligibility Date Funding Source Not [facility] Eligible 04/24/25 Private Results Reviewed Results Reviewed: Laboratory Tests 04/22/25 04/22/25 10:22 10:26 WBC 7.2 Hgb 15.8 Hct 44.7 Plt Count 218 Sodium 137 Potassium 4.3 Creatinine 0.90 Estimated GFR > 60 Fasting Glucose 86 Calcium 9.4 AST 42 H ALT 51 H Triglycerides 86 Cholesterol 195 LDL Cholesterol, Calc 115 H HDL Cholesterol 63 25-OH Vitamin D Total 47.0 TSH 0.89 Ur Specific [place] 1.010 Urine Protein Negative Urine Glucose (UA) Negative Urine Blood Negative Urine Nitrite Negative Ur Leukocyte Esterase Negative Coding Level of Care Code Est Pt Level 4 (47996) Diagnoses Pure hypercholesterolemia E78.00 Essential hypertension I10 Elevated LFTs R79.89 Degeneration of intervertebral disc of lumbar region with discogenic back pain M51.360 Disc-related pain type: discogenic back pain only Migraine without status migrainosus, not intractable, unspecified migraine type G43.909 Migraine type: unspecified Status migrainosus presence: without status migrainosus Intractability: not intractable Allergic rhinitis, unspecified seasonality, unspecified trigger J30.9 Allergic rhinitis trigger: unspecified Allergic rhinitis seasonality: unspecified Parosmia R43.1 Vitamin D deficiency E55.9 Hydrocele, right N43.3 Overweight (BMI 25.0-29.9) E66.3 Additional Codes PHQ-9 - 77517 - PHQ-9 Billing: Yes ([id number]) Assessment & Plan Assessment & Plan (1) Pure hypercholesterolemia: Code(s): E78.00 - Pure hypercholesterolemia, unspecified Category: Medical Plan: Results of his labs done a couple of days ago reviewed and discussed with patient - his cholesterol levels have improved slightly from previous Reinforced low-cholesterol diet He was taken off Atorvastatin previously due to vague symptoms that included generalized weakness, dizziness, nausea and myalgia as well as elevated LFTs - his LFTs have dropped off slightly from previous on his recent labs He was also tried more recently on Ezetimibe 10 mg QD recently but patient self- discontinued the medication due to complaints of weird smells in his nose repeatedly when he was taking the Rx although he is still experiencing a distorted or loss of smell at this time Patient wishes to continue with diet modification for now and not take any Rx for his high cholesterol levels Will recheck his labs and fasting lipids in 4 months for follow up (2) Essential hypertension: Code(s): I10 - Essential (primary) hypertension Category: Medical Plan: He was started on Lisinopril at 2.5 mg QD earlier this year but patient stopped taking his Rx a few months ago when he started feeling dizzy and lightheaded and noted that his systolic blood pressure was around 111 mm at the time He felt that this is the lowest he has seen his blood pressure, and at that point, he decided to stop taking his Lisinopril States that he has not had any recurrence of his symptoms since he stopped taking his medication and prefers to try controlling his blood pressure with dietary restrictions alone for now Reinforced low-sodium diet Patient is reminded to continue monitoring his blood pressure regularly - goal is systolic BP of at least 120-130 mm or less (3) Elevated LFTs: Code(s): R79.89 - Other specified abnormal findings of blood chemistry Category: Medical Plan: Abdominal US done back in July 2022 came back significant only for findings of hepatis steatosis; hepatitis profile done at the time all came back negative His LFTs are still slightly elevated but have dropped off from previous on his recent labs Will continue to monitor his LFTs regularly (4) Lumbar degenerative disc disease: Code(s): M51.369 - Other intervertebral disc degeneration, lumbar region without mention of lumbar back pain or lower extremity pain Category: Medical Qualifiers: Disc-related pain type: discogenic back pain only Qualified Code(s): M51.360 - Other intervertebral disc degeneration, lumbar region with discogenic back pain only Plan: Lumbar spine x-rays done at the ER last year revealed (+) chronic mild multilevel discovertebral degenerative changes of the lumbar spine but no acute injuries or fractures States that his low back pain has improved a lot with physical therapy in the past - advised that we can refer him back to PT if needed Reinforced activity and weight lifting restrictions Continue Cyclobenzaprine 5 mg TID PRN and Naproxen 500 mg BID PRN for pain (5) Migraine: Code(s): G43.909 - Migraine, unspecified, not intractable, without status migrainosus Category: Medical Qualifiers: Migraine type: unspecified Status migrainosus presence: without status migrainosus Intractability: not intractable Qualified Code(s): G43.909 - Migraine, unspecified, not intractable, without status migrainosus Plan: Patient states that his headaches have been well-controlled on Topiramate 25 mg QHS - Rx was started by neurology (Dr. Lucas) Reinforced avoidance of migraine triggers Continue Sumatriptan 50 mg PRN Follow up with neurology as scheduled (6) Allergic rhinitis: Code(s): J30.9 - Allergic rhinitis, unspecified Category: Medical Qualifiers: Allergic rhinitis trigger: unspecified Allergic rhinitis seasonality: unspecified Qualified Code(s): J30.9 - Allergic rhinitis, unspecified Plan: Continue Fluticasone 50 mcg nasal spray QD PRN (7) Parosmia: Code(s): R43.1 - Parosmia Category: Medical Plan: He was seen by ENT for this last year in August 2023 and was advised at the time that his symptoms may be related to his allergies Patient also recalls that he started experiencing this after he contracted COVID at least twice over the past 2 to 3 years so his loss or altered sense of smell may also be a post-COVID complication and if it is, could take up to a few years for his sense of smell to recover (8) Vitamin D deficiency: Code(s): E55.9 - Vitamin D deficiency, unspecified Category: Medical Plan: Continue Vitamin D3 2000 units QD (9) Hydrocele, right: Code(s): N43.3 - Hydrocele, unspecified Category: Medical Plan: Testicular US done at the ER last year revealed (+) small bilateral hydroceles; both testicles were otherwise normal Patient states that his symptoms have improved a lot with Abx Tx with Cephalexin back then Follow up with urology as scheduled (10) Overweight (BMI 25.0-29.9): Code(s): E66.3 - Overweight Category: Medical Plan: Reinforced diet/exercise as tolerated/lose weight Plan Per request, flu vaccine given today Follow up in 4 months Orders: Orders Influenza [id number] Immunization Today Z23 - Encounter for immunization
--- OUTSIDE RECORDS SUMMARY | 2025-04-24 15:14 | XMS_ITS | Patient Health Record ---
Author Organization [facility] Address [address] [place] [address] Care Team Providers Care Supervisor Net Making Name Role Phone Freida Oro Primary Care Provider UnavailMathieu Baker Jr Unavailable [phone] Reason For Referral No Information Medications Medication SIG (Take, Route, Frequency, Duration) Notes Start Date End Date Status Lisinopril Active Social History Social History Additional Details Category Social Info Options Details Miscellaneous: Marital status: single Occupation: unemployed Problems Problem Type SNOMED Code ICD Code Onset Dates Problem Status W/U Status Risk Notes Problem Irritable bowel syndrome (84088553) Irritable bowel syndrome (564.1) Active confirmed Plan Of Treatment No Information Insurance Providers Payer Name Payer Address Payer Phone Subscriber Number Group Number Insured Name Patient Relationship to Insured Coverage Start Date Coverage End Date [facility] [address] [place] [address] [id number] MALDONADO DENNIS Self - patient is the insured Medical (General) History Medical History History ICD Code hypertension elevated cholesterol
== END 2025-04-24 14:09 | disposition home or self-care (01) ==
LOC: HO.HMCH 13:30
PROVIDERS: PCP Internal Medicine; Visit Provider Internal Medicine
DX: E78.00 Pure hypercholesterolemia, unspecified (principal); I10 Essential (primary) hypertension; R79.89 Other specified abnormal findings of blood chemistry; M51.360 Other intervertebral disc degeneration, lumbar region with discogenic back pain only; G43.909 Migraine, unspecified, not intractable, without status migrainosus; J30.9 Allergic rhinitis, unspecified; R43.1 Parosmia; E55.9 Vitamin D deficiency, unspecified; N43.3 Hydrocele, unspecified; E66.3 Overweight; Z23 Encounter for immunization

== ENCOUNTER → 2025-04-24 13:30 | Outpatient (BNVA) | payer OTHER, SELFPAY | PROVIDERS: PCP Internal Medicine; Visit Provider Internal Medicine | DX: I10 Essential (primary) hypertension (principal); E78.00 Pure hypercholesterolemia, unspecified; M51.360 Other intervertebral disc degeneration, lumbar region with discogenic back pain only; J30.9 Allergic rhinitis, unspecified; G43.909 Migraine, unspecified, not intractable, without status migrainosus; R79.89 Other specified abnormal findings of blood chemistry; R43.1 Parosmia; E55.9 Vitamin D deficiency, unspecified; N43.3 Hydrocele, unspecified; E66.3 Overweight; Z13.31 Encounter for screening for depression; Z13.39 Encounter for screening examination for other mental health and behavioral disorders; Z23 Encounter for immunization | CPT/HCPCS: 90471; 90656; 96127; 99212 ==